=== PATIENT | female | born 1960 | race Caucasian/White ===

== ENCOUNTER → 2019-07-03 16:23 | Outpatient (CLI) | payer BC, SELFPAY ==
--- NOTE | 2019-07-03 16:28 | RAD_ITS ---
STUDY: X-RAY CHEST REASON FOR EXAM: Female, 58 years old. Asthma exacerbation TECHNIQUE: Frontal and lateral views of the chest. COMPARISON: 07/05/2012. FINDINGS: Stable surgical clips are seen related to the left chest wall. The lungs are clear and expanded. There is no demonstrated pleural abnormality. Normal size heart. Normal mediastinum and mario. Normal visualized pulmonary arteries. Normal visualized aortic arch and descending thoracic aorta. Normal visualized thoracic spine. Normal visualized ribs, clavicles, and shoulders. There is no demonstrated abnormality of the visualized soft tissue structures of the upper abdomen. RAD/Chest PA and Lateral IMPRESSION: No definite acute or significant abnormality seen. Electronically Signed: Alexandre Vivar MD at 16:22 EST , Service support ,
== END ==
PROVIDERS: PCP Family Medicine; Referring Provider Family Medicine; Visit Provider Family Medicine
DX: J45.901 Unspecified asthma with (acute) exacerbation (principal)
CPT/HCPCS: 71046

== ENCOUNTER → 2020-01-18 12:28 | Outpatient (CLI) | payer BC, SELFPAY | PROVIDERS: Visit Provider Family Medicine | DX: Z03.818 Encounter for observation for suspected exposure to other biological agents ruled out (principal); Z11.59 Encounter for screening for other viral diseases | CPT/HCPCS: 87635; U0003 ==

== ENCOUNTER → 2020-02-01 10:44 | Outpatient (CLI) | payer BC, SELFPAY | PROVIDERS: Referring Provider Family Medicine; Visit Provider Family Medicine | DX: Z03.818 Encounter for observation for suspected exposure to other biological agents ruled out (principal); Z11.59 Encounter for screening for other viral diseases | CPT/HCPCS: 87635; U0003 ==

== ENCOUNTER → 2020-02-15 12:50 | Outpatient (CLI) | payer BC, SELFPAY | PROVIDERS: Referring Provider Family Medicine; Visit Provider Family Medicine | DX: Z03.818 Encounter for observation for suspected exposure to other biological agents ruled out (principal); Z11.59 Encounter for screening for other viral diseases | CPT/HCPCS: 87635; U0003 ==

== ENCOUNTER → 2020-02-29 09:49 | Outpatient (CLI) | payer BC, SELFPAY | PROVIDERS: Referring Provider Family Medicine; Visit Provider Family Medicine | DX: Z03.818 Encounter for observation for suspected exposure to other biological agents ruled out (principal); Z11.59 Encounter for screening for other viral diseases | CPT/HCPCS: 87635; U0003 ==

== ENCOUNTER → 2020-03-14 11:51 | Outpatient (CLI) | payer BC, SELFPAY | PROVIDERS: Referring Provider Family Medicine; Visit Provider Family Medicine | DX: Z03.818 Encounter for observation for suspected exposure to other biological agents ruled out (principal); Z11.59 Encounter for screening for other viral diseases | CPT/HCPCS: 87635; U0003 ==

== ENCOUNTER → 2020-05-01 15:23 | Outpatient (CLI) | payer BC, SELFPAY ==
[2020-05-01 18:19] LABS: Anion Gap 6 (5-15); BUN 10 mg/dL (7-18); BUN/Creat Ratio 13.1 RATIO (10-20); Calcium,Total 8.9 mg/dL (8.5-10.1); Chloride 104 mmol/L (98-107); Creatinine, Serum 0.76 mg/dL (0.55-1.02); EST Glomerular Filtration Rate 82 mL/min (>60); Est Glom Filt Rate - Afr Amer 100 mL/min (>60); Glucose 234 mg/dL (74-106); Sodium Level 138 mmol/L (136-145)
== END ==
PROVIDERS: Visit Provider Family Medicine
DX: I10 Essential (primary) hypertension (principal)
CPT/HCPCS: 36415; 80048

== ENCOUNTER → 2020-12-12 14:05 | Outpatient (CLI) | payer BC, SELFPAY | PROVIDERS: Nurse Practitioner Family; Visit Provider Family Medicine | DX: E03.9 Hypothyroidism, unspecified (principal) | CPT/HCPCS: 36415; 84443 ==

== ENCOUNTER → 2021-04-14 18:24 | Outpatient (CLI) | payer OTHER, SELFPAY | PROVIDERS: PCP Family Medicine; Referring Provider Family Medicine; Visit Provider Family Medicine | DX: U07.1 COVID-19 (principal) | CPT/HCPCS: 87635; U0005; U0003 ==

== ENCOUNTER 2021-04-15 17:25 | Outpatient (CLI) | payer OTHER, SELFPAY ==
[2021-04-15 18:01] VITALS: BP 134/75; PULSE 79; RESP 16; TEMP 37.2; O2SAT 97
[2021-04-15] MEDS: 0.9% Saline Lock 10 ML Syringe IV (18:03)
[2021-04-15 18:30] VITALS: BP 123/52; PULSE 71; RESP 16; TEMP 36.9; O2SAT 98
[2021-04-15 19:30] VITALS: BP 130/59; PULSE 73; RESP 16; TEMP 37.2
== END 2021-04-15 19:30 | disposition home or self-care (01) ==
LOC: MS3OUT 17:26 → MS3 17:26
PROVIDERS: PCP Family Medicine; Referring Provider Nurse Practitioner Adult Health; Visit Provider Nurse Practitioner Adult Health
DX: Z23 Encounter for immunization (principal); U07.1 COVID-19
CPT/HCPCS: J7050; M0243; A4216; Q0244

== ENCOUNTER 2021-04-17 00:22 | Observation (INO) | payer OTHER, SELFPAY ==
[2021-04-17] VITALS (38 sets, daily range): BP systolic 84–137; BP diastolic 52–101; PULSE 59–153; RESP 13–23; TEMP 36.6–37.2; O2SAT 90–98; BMI 21.1
--- NOTE | 2021-04-17 00:49 | EKG12_ITS ---
Test Reason : PALPS Blood Pressure : / mmHG Vent. Rate : 156 BPM Atrial Rate : 312 BPM P-R Int : 000 ms QRS Dur : 084 ms QT Int : 308 ms P-R-T Axes : 000 060 -89 degrees QTc Int : [address] & T wave abnormality, consider inferior ischemia ST & T wave abnormality, consider anterolateral ischemia Abnormal ECG Confirmed by MONICA CORNELIUS, LIZZETTE ([id number]), sound editor SRAVAN CASEY ([id number]) on 04/18/2021 10:43:45 AM Referred By: LUANNE Confirmed By:LIZZETTE ANDERSON MD
--- NOTE | 2021-04-17 00:49 | RAD_ITS ---
STUDY: X-RAY CHEST REASON FOR EXAM: Female, 60 years old. Dyspnea TECHNIQUE: Single AP portable view of the chest. COMPARISON: 07/03/2019 FINDINGS: Nodular opacities seen throughout both lungs with a basilar predominance. No pleural effusion. No pneumothorax. Normal size heart. Normal mediastinum and mario. Normal visualized pulmonary arteries. Normal visualized aortic arch and descending thoracic aorta. Mild S-shaped scoliosis of the thoracolumbar spine. Normal visualized ribs, clavicles, and shoulders. There is no demonstrated abnormality of the visualized soft tissue structures of the upper abdomen. RAD/Chest 1 View (Portable) IMPRESSION: Diffuse bilateral pulmonary nodules, new from prior imaging Electronically Signed: Eric Arana MD at 1:23 EST Tel , Service support ,
[2021-04-17] MEDS: dilTIAZem 25 MG/5 ML Vial 20 MG IV BOLUS ×3 (00:54→03:42)
[2021-04-17] MEDS: 0.9% Normal Saline 1,000 ML 999 ML IV (00:54)
[2021-04-17 01:01] LABS: Absolute Lymphocyte Count 0.93 X10^3/uL (0.83-4.51); Basophil# 0.01 X10^3/uL; Basophil% 0.3 % (0-1); Hematocrit 40.8 % (37-47); Hemoglobin 13.9 g/dL (12.0-15.0); Lymphocyte # 0.93 X10^3/ul (0.83-4.51); Lymphocyte % 28.4 % (19-41); Mean Corp Hgb Conc 34.1 g/dL (32-36); Mean Corpuscular Hgb 31.3 pg (27.0-32.0); Mean Corpuscular Volume 91.9 fL (81-99); Mean Platelet Vol. 11.1 fl (6.2-12.0); Monocyte# 0.28 X10^3/uL; Monocyte% 8.6 % (0-10); NRBC Flagged by Analyzer 0 % (0-5); Neutrophil # 2.03 X10^3/uL (2.7-7.7); Neutrophil % 62.1 % (47-70); Platelet Count 135 K/mm3 (150-450); RBC Distribution Width CV 11.7 % (11.6-14.6); RBC Distribution Width SD 39.7 fl (35.1-43.9); Red Blood Count 4.44 M/mm3 (4.2-5.4); White Blood Count 3.3 K/mm3 (4.4-11.0)
[2021-04-17 01:07] LABS: Prothrombin Time (Protime)PT. 12.7 SECONDS (11.7-14.9)
[2021-04-17 01:08] LABS: Partial Thromboplast Time 38.4 Seconds (24.1-36.2)
[2021-04-17 01:25] LABS: Anion Gap 5 (5-15); BUN 8 mg/dL (7-18); BUN/Creat Ratio 11.3 RATIO (10-20); Calcium,Total 8.6 mg/dL (8.5-10.1); Chloride 99 mmol/L (98-107); Creatinine, Serum 0.71 mg/dL (0.55-1.02); EST Glomerular Filtration Rate 89 mL/min (>60); Est Glom Filt Rate - Afr Amer 108 mL/min (>60); Estimated Creatinine Clearance 74.87 ml/min; Glucose 159 mg/dL (74-106); Potassium 3.5 mmol/L (3.5-5.1); Sodium Level 131 mmol/L (136-145); Thyroid Stim Hormone (TSH) 4.13 uIU/mL (0.358-3.74); Troponin-I HS 60 pg/mL (3.0-54.0)
[2021-04-17] MEDS: Enoxaparin 60 MG/0.6 ML Syringe SC ×2 (02:26→09:15)
[2021-04-17 03:02] LABS: Troponin-I HS 107 pg/mL (3.0-54.0)
--- NOTE | 2021-04-17 03:47 | EDS_ITS ---
HPI History of Present Illness Chief Complaint: Palpitations Narrative Narrative: Patient is a 60-year-old female who states she is approximately 5 days into a Covid diagnosis. She states that today she took 15 mg of ivermectin and then a few hours later felt like her heart was racing and skipping beats. She denies any stimulant use or illicit drug use. She does state that she has a history of a ventricular tachycardia that was diagnosed years ago and that she takes metoprolol for. She denies any chest pain or shortness of breath but states that with the persistent palpitations presents for evaluation. [facility] Medical History (Updated 04/17/21 @ 03:[address] David Miranda, DO) HX: breast cancer Hypothyroid Tachycardia Home Medications albuterol sulfate [ProAir HFA] 1 - 2 puff INHALATION Q4H PRN 04/15/21 [History Last Taken Unknown] metformin 500 mg PO DAILY 04/15/21 [History Last Taken Unknown] metoprolol succinate 25 mg PO BID 04/15/21 [History Last Taken Unknown] thyroid (pork) [[place] Thyroid] 60 mg PO DAILY 04/15/21 [History Last Taken Unknown] Allergy/AdvReac Type Severity Reaction Status Date / Time cyclobenzaprine Allergy Severe dyspnea Verified 04/17/21 00:26 Sulfa (Sulfonamide Allergy Severe hives Verified 04/17/21 00:26 Antibiotics) Social History Smoking Status: Former smoker ROS [facility] ED Constitutional Constitutional ED: Denies chills or fever(s) ENT ENT ED: Reports rhinorrhea and sore throat Cardiovascular Cardiovascular: Reports palpitations and racing heartbeat; Denies chest pain Respiratory/Chest Respiratory/Chest: Reports cough; Denies dyspnea Gastrointestinal Gastrointestinal: Denies abdominal pain, diarrhea, nausea or vomiting Genitourinary Genitourinary ED: Denies dysuria Musculoskeletal Musculoskeletal: Denies myalgias Integumentary Denies rash Neurologic Neurologic: Denies headache(s) Hematologic/Lymphatic Hematologic/Lymphatic: Denies easy bleeding or easy bruising EXAM Physical Exam Const Vital Signs: 04/17/21 00:23 04/17/21 00:26 04/17/21 00:59 Temperature 98.5 F 98.5 F Temperature Source Oral Oral Pulse Rate 147 H 147 H 85 Respiratory Rate 22 H 22 H Respiratory Effort Short of Breath Respiratory Pattern Tachypnea Blood Pressure 137/101 H 137/101 H Blood Pressure Mean 113 113 Pulse Ox 97 97 Oxygen Delivery Method Room Air Room Air 04/17/21 01:46 04/17/21 01:58 04/17/21 02:02 Temperature Temperature Source Pulse Rate 148 H 103 H 97 Respiratory Rate 17 18 17 Respiratory Effort Respiratory Pattern Blood Pressure 124/83 H 124/83 H 106/65 Blood Pressure Mean 96 96 78 Pulse Ox 97 96 94 Oxygen Delivery Method Room Air Room Air 04/17/21 02:18 04/17/21 02:49 04/17/21 03:35 Temperature Temperature Source Pulse Rate 130 H 144 H 153 H Respiratory Rate 16 16 13 Respiratory Effort Respiratory Pattern Blood Pressure 116/83 H 133/87 H 116/89 H Blood Pressure Mean 94 102 98 Pulse Ox 94 95 94 Oxygen Delivery Method Room Air Positive well nourished and well developed General Appearance ED: well developed HEENT Reports moist mucous membranes Eyes PERRL and EOMs intact bilaterally Neck supple Resp normal respiratory effort and clear to auscultation bilaterally Cardio Rate: other Other Details: Irregularly irregular rhythm with tachycardic rate GI normal to inspection, nondistended, normoactive bowel sounds, non-tender, non-distended and no masses GI Narrative: No voluntary guarding or rigidity no pulsatile mass Auscultation: normoactive bowel sounds Palpation: soft Extremity normal to inspection Extremity Narrative: No asymmetric edema no pitting edema negative Homans' sign bilaterally Neuro oriented x3 and CN's II-XII intact bilaterally Sensorium / Orientation: alert Psych mental status grossly normal Skin no rashes or lesions noted MDM MDM MDM Narrative Medical decision making narrative: Patient presented to the ER with an irregularly irregular rhythm consistent with atrial fibrillation and rapid ventricular response at approximately 160 bpm. She states she can feel her heart racing and that this began approximately 2 hours prior to arrival. She denies any chest pain or shortness of breath associated with this. She denies any previous history of atrial fibrillation or blood thinner use. She also denies any illicit drug use or stimulant use. With her new onset A. fib basic blood work was obtained which showed a low white blood cell count consistent with her recent Covid diagnosis and otherwise the only abnormality was an elevated troponin which is most likely from demand ischemia. The patient was started on Cardizem bolus as well as drip secondary to her persistent tachycardia. Secondary to the need for continued IV rate control she will be kept in the hospital for further care. Lab Data Attestation: I reviewed the patient's lab results. Labs: Laboratory Results - last 24 hr 04/17/21 04/17/21 04/17/21 00:32 00:32 00:32 WBC 3.3 L RBC 4.44 Hgb 13.9 Hct 40.8 MCV 91.9 MCH 31.3 MCHC 34.1 RDW Std Deviation 39.7 RDW Coeff of Debbie 11.7 Plt Count 135 L MPV 11.1 Immature Gran % (Auto) 0.600 Neut % (Auto) 62.1 Lymph % (Auto) 28.4 [place] % (Auto) 8.6 Eos % (Auto) 0.0 Baso % (Auto) 0.3 Absolute Neuts (auto) 2.0 Absolute Lymphs (auto) 0.93 Nucleated RBC % 0 PT 12.7 INR 1.0 APTT 38.4 H Sodium 131 L Potassium 3.5 Chloride 99 Carbon Dioxide 27.0 Anion Gap 5 BUN 8 Creatinine 0.71 Estim Creat Clear Calc 74.87 Est GFR (MDRD) Af Amer 108 Est GFR (MDRD) Non-Af 89 BUN/Creatinine Ratio 11.3 Glucose 159 H Calcium 8.6 Magnesium 2.0 Troponin I High Sens 60 H TSH 4.13 H 04/17/21 02:38 WBC RBC Hgb Hct MCV MCH MCHC RDW Std Deviation RDW Coeff of Debbie Plt Count MPV Immature Gran % (Auto) Neut % (Auto) Lymph % (Auto) Johnson % (Auto) Eos % (Auto) Baso % (Auto) Absolute Neuts (auto) Absolute Lymphs (auto) Nucleated RBC % PT INR APTT Sodium Potassium Chloride Carbon Dioxide Anion Gap BUN Creatinine Estim Creat Clear Calc Est GFR (MDRD) Af Amer Est GFR (MDRD) Non-Af BUN/Creatinine Ratio Glucose Calcium Magnesium Troponin I High Sens 107 H TSH Radiography Diagnostic Testing: Clinical Impression(s) from Imaging Studies Chest X-Ray 04/17/21 00:49 IMPRESSION: Diffuse bilateral pulmonary nodules, new from prior imaging Electronically Signed: Eric Arana MD at 1:23 EST Tel , Service support , Critical Care Time Critical Care Time: Yes Critical care time (excluding procedures): - (Please note critical care time of 31 minutes) Discharge Plan Dx/Rx/DC Orders Clinical Impression: COVID-19, New onset atrial fibrillation Disposition Disposition: Acute Care Hospital [facility]
--- NOTE | 2021-04-17 03:48 | HP.PCM.HOS_ITS ---
HPI - General General Date of Admission: 04/17/21 Date of Service: 04/17/21 Chief Complaint: Palpitations HPI Narrative OLAMIDE REILLY, is a 60 F who presents to the emergency room at [facility] with a chief complaint of palpitations which started approximately midnight to 1 AM today, patient does not describe chest pain. Patient was diagnosed as having Covid 19 infection 2 days ago, she states that her symptoms actually started last (04/10/2021). Patient is not short of breath, she is not hypoxic in the emergency room. Lab work drawn in the emergency room included a CBC which showed a WBC of 3.3, platelet count 135,000, glucose was 159, sodium was 131, troponin was 107, and TSH was 4.13. EKG was obtained which showed the patient to be in atrial fibrillation with a rate of approximately 130-140, there were ST-T wave depressions in leads V4 through V6. Patient was given 2 boluses of Cardizem 20 mg with some slowing of her rate and she was placed on a Cardizem drip. Chest x-ray showed diffuse bilateral pulmonary nodules new from prior imaging. Patient will be admitted to PCU for new onset atrial fibrillation with rapid ventricular response, I have ordered another 20 mg of Cardizem as the patient's pulse rate has jumped up into the 130s again. 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 [facility] Medical History (Updated 04/17/21 @ 03:[address] David Miranda, DO) HX: breast cancer Hypothyroid Tachycardia Home Medications albuterol sulfate [ProAir HFA] 1 - 2 puff INHALATION Q4H PRN 04/15/21 [History Last Taken Unknown] metformin 500 mg PO DAILY 04/15/21 [History Last Taken Unknown] metoprolol succinate 25 mg PO BID 04/15/21 [History Last Taken Unknown] thyroid (pork) [[place] Thyroid] 60 mg PO DAILY 04/15/21 [History Last Taken Unknown] Allergy/AdvReac Type Severity Reaction Status Date / Time cyclobenzaprine Allergy Severe dyspnea Verified 04/17/21 00:26 Sulfa (Sulfonamide Allergy Severe hives Verified 04/17/21 00:26 Antibiotics) Social History Smoking Status: Former smoker ROS Constitutional Constitutional: Reports fatigue; Denies anorexia, change in weight, fever(s), night sweats or weakness Eyes Eyes: Denies blurry vision, change in vision, discharge from eye(s) or eye pain Cardiovascular Cardiovascular: Reports palpitations and rapid heart rate; Denies chest pain, claudication or edema Respiratory/Chest Respiratory/Chest: Denies cough, hemoptysis, shortness of breath at rest or shortness of breath with exertion Gastrointestinal Gastrointestinal: Denies abdominal pain, constipation, diarrhea, hematemesis, hematochezia, melena, nausea or vomiting Genitourinary Genitourinary: Denies dysuria, hematuria, urinary frequency, urinary hesitancy, urinary incontinence or urinary urgency Musculoskeletal Musculoskeletal: Denies back pain, joint pain, joint stiffness, joint swelling, myalgias or neck pain Neurologic Neurologic: Denies abnormal gait, abnormal speech, dizziness, focal weakness, headache(s), loss of vision, numbness, other visual disturbances, paresthesias, syncope or tingling Psychiatric Psychiatric: Denies anxiety, cognitive impairment, depression, irritability, mood swings or suicidal ideation Endocrine Endocrinology: Denies change in body appearance, cold intolerance, excessive sweating, heat intolerance, polydipsia or polyuria Hematologic/Lymphatic Hematologic/Lymphatic: Denies none, anemia, easy bleeding, easy bruising or lymphadenopathy Allergic/Immunologic Allergic/Immunologic: Denies rhinitis, urticaria, eczemia or asthma Vital Signs Vital Signs Vital Signs: 04/17/21 00:23 04/17/21 00:26 04/17/21 00:59 Temperature 98.5 F 98.5 F Temperature Source Oral Oral Pulse Rate 147 H 147 H 85 Respiratory Rate 22 H 22 H Respiratory Effort Short of Breath Respiratory Pattern Tachypnea Blood Pressure 137/101 H 137/101 H Blood Pressure Mean 113 113 Pulse Ox 97 97 Oxygen Delivery Method Room Air Room Air 04/17/21 01:46 04/17/21 01:58 04/17/21 02:02 Temperature Temperature Source Pulse Rate 148 H 103 H 97 Respiratory Rate 17 18 17 Respiratory Effort Respiratory Pattern Blood Pressure 124/83 H 124/83 H 106/65 Blood Pressure Mean 96 96 78 Pulse Ox 97 96 94 Oxygen Delivery Method Room Air Room Air 04/17/21 02:18 04/17/21 02:49 04/17/21 03:35 Temperature Temperature Source Pulse Rate 130 H 144 H 153 H Respiratory Rate 16 16 13 Respiratory Effort Respiratory Pattern Blood Pressure 116/83 H 133/87 H 116/89 H Blood Pressure Mean 94 102 98 Pulse Ox 94 95 94 Oxygen Delivery Method Room Air Weight Weight: 57.6 kg Body Mass Index (BMI) 21.1 Physical Exam Const alert, oriented x3, no apparent distress and healthy appearing General Appearance: cooperative, well kempt and well developed Orientation / Consciousness: awake, oriented to person, oriented to place and oriented to time HEENT normocephalic, head/scalp atraumatic, hearing grossly normal bilaterally and moist oral mucous membranes Eyes PERRL, EOMs intact bilaterally and conjunctivae normal Neck nuchal rigidity, supple, no JVD, thyroid normal and no carotid bruits General: trachea midline Resp normal respiratory effort, no retractions, no use of accessory muscles and clear to auscultation bilaterally Auscultation: Negative for rales, rhonchi or wheezes Cardio S1 normal heart sound, S2 normal heart sound, no murmurs, no rub and no gallops Cardio Narrative: Heart rate and rhythm was irregular, patient was tachycardic GI normal to inspection, nondistended, normoactive bowel sounds, soft to palpation, non-tender and non-distended Extremity normal to inspection and no clubbing, cyanosis or edema Skin no rashes or lesions noted, no wounds and skin turgor normal General Skin Exam: no breakdown Neuro oriented x3, CN's II-XII intact bilaterally, no focal motor deficits and no sensory deficits noted Sensorium / Orientation: awake and alert Speech: speech normal Psych thought process normal and affect normal Results Lab / Micro Data Result Diagrams: 04/17/21 00:32 04/17/21 00:32 Labs: Laboratory Results - last 24 hr 04/17/21 00:32: WBC 3.3 L, RBC 4.44, Hgb 13.9, Hct 40.8, MCV 91.9, MCH 31.3, MCHC 34.1, RDW Std Deviation 39.7, RDW Coeff of Debbie 11.7, Plt Count 135 L, MPV 11.1, Immature Gran % (Auto) 0.600, Neut % (Auto) 62.1, Lymph % (Auto) 28.4, [place] % (Auto) 8.6, Eos % (Auto) 0.0, Baso % (Auto) 0.3, Absolute Neuts (auto) 2.0, Absolute Lymphs (auto) 0.93, Nucleated RBC % 0 04/17/21 00:32: PT 12.7, INR 1.0, APTT 38.4 H 04/17/21 00:32: Sodium 131 L, Potassium 3.5, Chloride 99, Carbon Dioxide 27.0, Anion Gap 5, BUN 8, Creatinine 0.71, Estim Creat Clear Calc 74.87, Est GFR (MDRD) Af Amer 108, Est GFR (MDRD) Non-Af 89, BUN/Creatinine Ratio 11.3, Glucose 159 H, Calcium 8.6, Magnesium 2.0, Troponin I High Sens 60 H, TSH 4.13 H 04/17/21 02:38: Troponin I High Sens 107 H Radiology Impression Chest X-Ray 04/17/21 00:49 IMPRESSION: Diffuse bilateral pulmonary nodules, new from prior imaging Electronically Signed: Eric Arana MD at 1:23 EST Tel , Service support , Assessment & Plan Assessment/Plan (1) New onset atrial fibrillation: PLAN: 1. New onset atrial fibrillation with rapid ventricular response- patient will be placed into stepdown on PCU, she is currently on a Cardizem drip, her blood pressures are stable at this time. Patient will get a limited echocardiogram due to her COVID-19 status, she may need additional rate reduction medications administered. #2 elevated troponin-possible [id number] will be monitored, she may need cardiology consultation #3 COVID-19 pneumonia-patient is not hypoxic, she is not eligible for dexamethasone or remdesivir due to this. Patient was taking ivermectin from a doctor that she contacted by phone. #4 history of tachycardia-type unknown, patient was taking metoprolol as an outpatient. #5 hypothyroidism #6 history of asthma #7 history of breast cancer Charges/Coding Visit Charges Inpatient E&M: 51150 Init Hosp L3
--- NOTE | 2021-04-17 04:06 | ECHOD_ITS ---
Reason For Study: AFIB Procedure This was a 2D Doppler, Color Flow transthoracic echocardiogram. The exam was abbreviated due to the COVID 19 protocol. Exam performed portable in patient room. Left Ventricle The estimated ejection fraction is 60 %. No evidence for diastolic dysfunction. No regional wall motion abnormalities noted. Right Ventricle Normal RV size. Normal systolic function. Atria Normal left atrium. Normal right atrium. No doppler evidence for ASD. Mitral Valve There is no mitral valve stenosis. No mitral valve insufficiency. Tricuspid Valve There is no tricuspid stenosis. Trivial tricuspid valve insufficiency. Pulmonary artery systolic pressure is 25 mmHg. Aortic Valve Trisinus/trileaflet aortic valve. There is no aortic stenosis. No aortic valve insufficiency. Pulmonic Valve There is no pulmonic valvular stenosis. No pulmonic valve insufficiency. Great Vessels Normal aortic root. Pericardium/Pleural No pericardial effusion. MMode/2D Measurements & Calculations LVIDd: 4.3 cm IVSd: 0.74 cm Ao root diam: 3.1 cm LVIDs: 3.0 cm LVPWd: 0.77 cm RVDd: 3.0 cm FS: 30.8 % LAV(MOD-bp): 35.5 ml LA A4 area: 14.6 cm2 LA dimension(2D): 3.3 cm LAV(MOD-bp) Indexed: 22.3 ml/m2 LAV(MOD-sp2): 39.0 ml LAV(MOD-sp4): 33.4 ml RA A4 area: 12.9 cm2 Doppler Measurements & Calculations Ao V2 max: 108.9 cm/sec LV V1 max: 89.6 cm/sec TR max jose l: 230.2 cm/sec Ao max P.7 mmHg LV V1 max P.2 mmHg TR max P.2 mmHg ECHO/Echo Complete Interpretation Summary The estimated ejection fraction is 60 %. No evidence for diastolic dysfunction. Ordering Physician: Marquise Andrea Referring Physician: PANDA FRANCISCO Performed By: Loyda Chatterjee, ELENITA, RVT
--- NOTE | 2021-04-17 04:24 | EKG12_ITS ---
Test Reason : AM EKG Blood Pressure : / mmHG Vent. Rate : 070 BPM Atrial Rate : 083 BPM P-R Int : 000 ms QRS Dur : 082 ms QT Int : 396 ms P-R-T Axes : 000 065 -69 degrees QTc Int : 427 ms Atrial fibrillation Nonspecific ST and T wave abnormality Abnormal ECG When compared with ECG of 17-APR-2021 00:33, MANUAL COMPARISON REQUIRED, DATA IS UNCONFIRMED Confirmed by MAXIMILIANO CORNELIUS, TALISHA ([id number]), video effects editor SRAVAN CASEY ([id number]) on 04/18/2021 12:49:44 PM Referred By: DR WEEMS Confirmed By:BINH VIERA MD
--- NOTE | 2021-04-17 04:26 | PCS.PANDOC ---
PANDEMIC DOCUMENTATION INITIATED: Date: 12/16/2020 Time: 190
[2021-04-17] MEDS: Metoprolol Tartrate 50 MG Tablet PO ×2 (04:41→09:16)
[2021-04-17] MEDS: Ondansetron 4 MG/2 ML Vial IV (05:12)
[2021-04-17] MEDS: 0.9% Saline Lock 10 ML Syringe IV (05:12)
[2021-04-17] MEDS: Acetaminophen 325 MG Tablet 650 MG PO (05:12)
--- NOTE | 2021-04-17 07:51 | PCM.HOSP.N ---
Hospitalist Note Patient is a 60-year-old lady unvaccinated against COVID-19 who tested positive for Covid on 04/14/2021 presented to the emergency department with palpitations. Patient was found to be in A. fib with RVR started on Cardizem drip admitted to a monitored bed for further management GENERAL: cooperative HEENT: Atraumatic; EYES; Anicteric, Normal Conjunctiva NECK; supple, normal thyroid, RESPIRATORY: Diminished to auscultation CARDIOVASCULAR: Irregularly irregular tachycardic GI: soft, normoactive bowel sounds, : No Renal angle tenderness; EXTREMITIES: No edema, no clubbing, MUSCULOSKELETAL: no muscle waisting NEURO: Awake; no lateralizing signs. SKIN: No Rash PSYCH; Flat affect 1. New onset A. fib with RVR ?Patient started on Cardizem drip titrated to keep saturation greater than 90. Patient was also started on systemic anticoagulation with Lovenox which has since been transitioned to Eliquis. Plan is for patient to complete work-up with an outpatient echo when she is out of current time 2. Essential hypertension ?Patient is on metoprolol did continue 3. Diabetes mellitus type II -patient's oral hypoglycemics held. Placed on long acting insulin, Accu-Cheks a.c. and at bedtime and covered with sliding scale insulin 4. Hypothyroidism ?Patient is on [place] Thyroid did continue 5. Mild intermittent asthma -Patient is on aerosol treatments as needed Advance planning; did discuss with the patient and family regarding advanced directives as well as CODE STATUS. Did explain the various scenarios involved ( FULL CODE, DNR CCA, DNR CCA with no intubation, and DNR CC and what each meant) patient elected to full code with CPR and intubation if needed. Order was placed. Time spent on discussion 18 minutes. Total time spent evaluating patient and subsequent adjustment of medication therapy and discussion with nursing staff; 35 minutes [facility] [employer] Hospitalists' Procedures Procedures: 74369 Prolonged InPt Service; first hour and [id number] Advncd Care Plan 30 Min
[2021-04-17 08:00] LABS: Troponin-I HS 132 pg/mL (3.0-54.0)
[2021-04-17] MEDS: metFORMIN HCl 500 MG Tablet PO (08:13)
[2021-04-17] MEDS: Thyroid 60 MG Tablet PO (09:15)
--- NOTE | 2021-04-17 12:04 | EKG12_ITS ---
Test Reason : CONNVERT TO NSR Blood Pressure : / mmHG Vent. Rate : 061 BPM Atrial Rate : 061 BPM P-R Int : 150 ms QRS Dur : 074 ms QT Int : 440 ms P-R-T Axes : 048 058 -61 degrees QTc Int : 442 ms Normal sinus rhythm T wave abnormality, consider inferior ischemia Abnormal ECG When compared with ECG of 17-APR-2021 06:06, MANUAL COMPARISON REQUIRED, DATA IS UNCONFIRMED Confirmed by MAXIMILIANO CORNELIUS, TALISHA ([id number]), film or videotape editor SRAVAN CASEY ([id number]) on 04/18/2021 12:49:22 PM Referred By: HERIBERTO Confirmed By:BINH VIERA MD
[2021-04-17] MEDS: APIXABAN 5 MG TABLET PO (14:09)
[2021-04-17] MEDS: dilTIAZem CD 120 MG Capsule PO (14:09)
--- NOTE | 2021-04-17 16:03 | PCM.DC.SUM ---
Providers Date of Admission: 04/17/21 Primary Care Physician: Dr. Panda Muro MD Reason For Visit: NEW ONSET A-FIB WITH RVR Diagnosis Discharge Diagnosis (1) New onset atrial fibrillation: Status: Acute Code(s): I48.91 - Unspecified atrial fibrillation Medications at Discharge Home Medications albuterol sulfate [ProAir HFA] 1 - 2 puff INHALATION Q4H PRN 04/15/21 metformin 500 mg PO DAILY 04/15/21 thyroid (pork) [[place] Thyroid] 60 mg PO DAILY 04/15/21 apixaban [Eliquis] 5 mg PO BID #60 tab 04/17/21 diltiazem HCl 120 mg PO DAILY #30 cap 04/17/21 metoprolol succinate 50 mg PO BID #0 tab 04/17/21 Hospital Course Procedures 2-D Echocardiogram Summary of Care Provided Minutes Spent on Discharge: 45 Hospital Course: Patient is a 60-year-old lady unvaccinated against COVID-19 who tested positive for Covid on 04/14/2021 presented to the emergency department with palpitations. Patient was found to be in A. fib with RVR started on Cardizem drip admitted to a monitored bed for further management 1. New onset A. fib with RVR ?Patient started on Cardizem drip titrated to keep saturation greater than 90. Patient was also started on systemic anticoagulation with Lovenox which has since been transitioned to Eliquis. 2D echo obtained did not show any structural heart disease. EF was estimated to be 60% 2. COVID-19 infection ?Patient not requiring oxygen. She was therefore not placed on remdesivir nor Decadron. She was instructed to current time for total of 10 days from the onset of her symptoms 3. Diabetes mellitus type II -patient's oral hypoglycemics held. Placed on long acting insulin, Accu-Cheks a.c. and at bedtime and covered with sliding scale insulin 4. Hypothyroidism ?Patient is on [place] Thyroid did continue 5. Mild intermittent asthma -Patient is on aerosol treatments as needed 6. Essential hypertension ?Patient is on metoprolol did continue Physical Exam Narrative GENERAL: cooperative HEENT: Atraumatic; EYES; Anicteric, Normal Conjunctiva NECK; supple, normal thyroid, RESPIRATORY: Diminished to auscultation CARDIOVASCULAR: Irregularly irregular tachycardic GI: soft, normoactive bowel sounds, : No Renal angle tenderness; EXTREMITIES: No edema, no clubbing, MUSCULOSKELETAL: no muscle waisting NEURO: Awake; no lateralizing signs. SKIN: No Rash PSYCH; Flat affect Medical Records Data Medical Nutrition Assessment Dietitian: Malnutrition Criteria Met Start: 04/17/21 13:40 Freq: Status: Active Protocol: Document 04/17/21 13:40 [facility] (Rec: 04/17/21 13:41 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 Weight / BMI Weight Weight: 54.7 kg Body Mass Index (BMI) 20.0 ABG / Lab / Microbiology Data Result Diagrams: 04/17/21 00:32 04/17/21 00:32 Laboratory: Laboratory Results - last 24 hr 04/17/21 00:32: WBC 3.3 L, RBC 4.44, Hgb 13.9, Hct 40.8, MCV 91.9, MCH 31.3, MCHC 34.1, RDW Std Deviation 39.7, RDW Coeff of Debbie 11.7, Plt Count 135 L, MPV 11.1, Immature Gran % (Auto) 0.600, Neut % (Auto) 62.1, Lymph % (Auto) 28.4, [place] % (Auto) 8.6, Eos % (Auto) 0.0, Baso % (Auto) 0.3, Absolute Neuts (auto) 2.0, Absolute Lymphs (auto) 0.93, Nucleated RBC % 0 04/17/21 00:32: PT 12.7, INR 1.0, APTT 38.4 H 04/17/21 00:32: Sodium 131 L, Potassium 3.5, Chloride 99, Carbon Dioxide 27.0, Anion Gap 5, BUN 8, Creatinine 0.71, Estim Creat Clear Calc 74.87, Est GFR (MDRD) Af Amer 108, Est GFR (MDRD) Non-Af 89, BUN/Creatinine Ratio 11.3, Glucose 159 H, Calcium 8.6, Magnesium 2.0, Troponin I High Sens 60 H, TSH 4.13 H 04/17/21 02:38: Troponin I High Sens 107 H 04/17/21 06:42: Troponin I High Sens 132 H* Radiography Diagnostic Testing: Radiology Impression Chest X-Ray 04/17/21 00:49 IMPRESSION: Diffuse bilateral pulmonary nodules, new from prior imaging Electronically Signed: Eric Arana MD at 1:23 EST Tel , Service support , Echocardiogram 04/17/21 04:06 Interpretation Summary The estimated ejection fraction is 60 %. No evidence for diastolic dysfunction. Ordering Physician: Marquise Andrea Referring Physician: PANDA MURO Performed By: Loyda Chatterjee, ELENITA, RVT D/C Instructions Discharge Diet: No restrictions Discharge Activity: Return to Normal Activity Call your doctor if you observe: Fever of 101 or Higher, Shortness of breath, Fainting spells and Chest pain Meaningful Use Info Meaningful Use Diagnoses (Choose all that apply): None applicable Discharge Plan Admission Admit Date/Time: 04/17/21 03:58 Attending Provider: Anmol Casper Primary Care Provider: Panda Muro Instructions Patient Instructions: Coronavirus Disease 2019 (COVID-19): Caring for Yourself or Others, Understanding Atrial Fibrillation Discharge Orders/Prescriptions Prescriptions: New diltiazem HCl 120 mg Capsule,Extended Release 24hr 120 mg PO DAILY Qty: 30 RF: 0 Eliquis 5 mg Tablet 5 mg PO BID Qty: 60 RF: 0 Continued metformin 500 mg Tablet 500 mg PO DAILY RF: 0 albuterol sulfate [ProAir HFA] 90 mcg/actuation HFA aerosol inhaler 1 - 2 puff INHALATION Q4H PRN (Reason: shortness of breath/wheezing) RF: 0 thyroid (pork) [[place] Thyroid] 30 mg tablet 60 mg PO DAILY RF: 0 Changed metoprolol succinate 25 mg tablet extended release 24 hr 50 mg PO BID Qty: 0 RF: 0 Referrals / Follow Up: Panda Muro MD [Primary Care Provider] - Within 2 Weeks Disposition Disposition (needs filled in before D/C Order can be placed): Home, Self Care Charges/Coding Visit Charges OBSV E&M: 86975 Observation care discharge
--- NOTE | 2021-04-17 16:35 | CASEMGMT ---
Addendum entered by Fatuma Saenz 04/17/21 16:44: Home O2 testing has been completed. Pt does not qualify for O2 at this time. Original Note: ENEIDA MITCHELL NOTE: Pt being discharged home on Eliquis and diltiazem. TC to Ryan in [facility] pharmacy for dorsey check. Eliquis cost is $96.52 after insurance applied. 30-day savings card applied and will be free. Diltiazem is $1.80. TC to pt and she was made aware of above. ENIEDA MITCHELL educated pt, that if cost of refills is not affordable, to discuss more affordable options w/her PCP. She voices understanding and appreciation of info. Hayden DIAL RN, CM
--- NOTE | 2021-04-17 16:45 | CASEMGMT ---
RN CM Assessment Introduced role of RN CM to patient.? Patient is alert, oriented and able?to participate in RN CM Assessment. ?Care providers, pharmacy, and demographics verified. Admit Dx: New Onset A-fib w/RVR. IP- 12.16.21 Re-Admit: No Barriers/Issues: None PCP: Tere Muro Specialists: Used to see Cardio Preferred Pharmacy: [facility] Insurance: [employer] Rx Benefit:?Yes LNOK: Dtr Lorene Blandon, Dtr Sherry Gautam LW/HPOA: None. information provided, patient decliners completion on this admission. Informed can return as an outpatient to complete with social service liaison at a later time.Living Arrangements:?Lives alone in a gnd level apartment, 2 steps to enter ADL?s: Independent with ambulation and ADLs Transportation: Patient drives and drove self to hospital. Plans to drive at DC. DME: Elsa Manzanares HHC: Past SNF: None Goal: Home and only need is for RNCM to to monitor and assist with Medication cost- to have affordable anticoagulation and antiarrhythmic. [facility] has an HSA and cannot afford high cost medications. DC PLAN: Home, F/u new medication cost/coupon savings card. MARQUISE Rodrigues
== END 2021-04-17 18:26 | disposition home or self-care (01) ==
LOC: ED 03:48 → PCU 04:09
PROVIDERS: Admitting Provider Internal Medicine; Emergency Provider Emergency Medicine; PCP Family Medicine; Visit Provider Internal Medicine
DX: I48.91 Unspecified atrial fibrillation (principal); U07.1 COVID-19; E11.9 Type 2 diabetes mellitus without complications; E03.9 Hypothyroidism, unspecified; J45.20 Mild intermittent asthma, uncomplicated; I10 Essential (primary) hypertension; R91.1 Solitary pulmonary nodule; J12.82 Pneumonia due to coronavirus disease 2019; R77.8 Other specified abnormalities of plasma proteins; Z79.899 Other long term (current) drug therapy; Z79.84 Long term (current) use of oral hypoglycemic drugs; Z79.890 Hormone replacement therapy; Z87.891 Personal history of nicotine dependence; Z85.3 Personal history of malignant neoplasm of breast
CPT/HCPCS: 36415; 71045; 80048; 83735; 84443; 84484; 85025; 85610; 85730; 93005; 93306; 96365; 96366; 96372; 96375; 96376; 97802; 99283; J7030; A4216; J2405

== ENCOUNTER 2021-04-18 23:06 | Emergency (ER) | payer OTHER, SELFPAY ==
[2021-04-18 23:06] VITALS: BP 140/96; PULSE 108; RESP 16; TEMP 36.8; O2SAT 93
--- NOTE | 2021-04-18 23:36 | EKG12_ITS ---
Test Reason : DYSRHYTHMIA Blood Pressure : / mmHG Vent. Rate : 139 BPM Atrial Rate : 147 BPM P-R Int : 000 ms QRS Dur : 084 ms QT Int : 322 ms P-R-T Axes : 000 066 270 degrees QTc Int : [address] & T wave abnormality, consider inferior ischemia ST & T wave abnormality, consider anterolateral ischemia Abnormal ECG Confirmed by JOHN CORNELIUS, MERRILL ([id number]), industrial editor SRAVAN CASEY ([id number]) on 04/22/2021 8:38:27 AM Referred By: JOSE J Confirmed By:MERRILL LOPEZ MD
--- NOTE | 2021-04-18 23:39 | EX.ED.DYSGE1 ---
HPI History of Present Illness Chief Complaint: Palpitations Informant: patient Onset/Context/Timing Onset: Today (Approximately 45 minutes prior to arrival) Context: Sudden Onset Timing: Continuous Quality: Fluttering Location: Chest Worsened by: Nothing Relieved by: Nothing Narrative Narrative: Patient presents with palpitations that began tonight. Patient states she felt fluttering in her chest tonight. Patient states she was recently admitted for new onset atrial fibrillation 2 days ago. Patient states she was discharged yesterday. Patient states that she felt similar fluttering in her chest tonight approximately 45 minutes prior to arrival. Patient states nothing makes it better nothing makes it worse. Patient states she has been taking her medications as prescribed. Patient denies any chest pain. Patient does admit to some shortness of breath and cough. However, patient states she is positive for COVID-19. [facility] Medical History (Updated 04/19/21 @ 03:[address] Dale Hanson DO) Atrial fibrillation Diabetes HX: breast cancer Hypothyroid Tachycardia Home Medications albuterol sulfate [ProAir HFA] 1 - 2 puff INHALATION Q4H PRN 04/15/21 [History Last Taken Unknown] metformin 500 mg PO DAILY 04/15/21 [History Last Taken Unknown] thyroid (pork) [[place] Thyroid] 60 mg PO DAILY 04/15/21 [History Last Taken Unknown] apixaban [Eliquis] 5 mg PO BID #60 tab 04/17/21 [Rx Last Taken Unknown] diltiazem HCl 120 mg PO DAILY #30 cap 04/17/21 [Rx Last Taken Unknown] metoprolol succinate 50 mg PO BID #0 tab 04/17/21 [Rx Last Taken Unknown] fluticasone propion-salmeterol [Advair Diskus] 1 inh INHALATION BID 04/18/21 [History Last Taken Unknown] Allergy/AdvReac Type Severity Reaction Status Date / Time cyclobenzaprine Allergy Severe dyspnea Verified 04/17/21 00:26 Sulfa (Sulfonamide Allergy Severe hives Verified 04/17/21 00:26 Antibiotics) Surgical History Hx of lumpectomy Social History Smoking Status: Former smoker ROS ROS ED Constitutional Constitutional ED: Denies chills or fever(s) Eyes Eyes: Denies blurry vision or change in vision ENT ENT ED: Denies rhinorrhea or sore throat Cardiovascular Cardiovascular: Reports palpitations; Denies chest pain Respiratory/Chest Respiratory/Chest: Reports cough and dyspnea Gastrointestinal Gastrointestinal: Denies nausea or vomiting Genitourinary Genitourinary ED: Denies dysuria or hematuria Musculoskeletal Musculoskeletal: Denies back pain or neck pain Integumentary Denies abscess or rash Neurologic Neurologic: Denies headache(s) or weakness Allergic/Immunologic Allergic/Immunologic ED: Denies mouth swelling or urticaria EXAM Physical Exam Const Vital Signs: 04/18/21 23:06 04/18/21 23:29 04/19/21 02:24 Temperature 98.2 F Temperature Source Temporal Pulse Rate 108 H 106 H Respiratory Rate 16 16 Respiratory Effort Normal Non-Labored Respiratory Pattern Normal Blood Pressure 140/96 H 102/81 H Blood Pressure Mean 110 88 Pulse Ox 93 96 Oxygen Delivery Method Room Air Room Air Positive well nourished and well developed General Appearance ED: well developed HEENT Reports moist mucous membranes Neck supple and no JVD Resp normal respiratory effort and clear to auscultation bilaterally Cardio no murmurs Rate: tachycardic Rhythm: abnormal rhythm irregularly irregular GI normal to inspection, nondistended, normoactive bowel sounds and non-tender Palpation: soft Extremity normal to inspection General Extremety ED: Negative for edema or tenderness General Extremity: Negative for edema Neuro oriented x3, CN's II-XII intact bilaterally and no sensory deficits noted Sensorium / Orientation: alert Motor Exam: strength 5/5 throughout Psych mental status grossly normal Skin no rashes or lesions noted MDM MDM MDM Narrative Medical decision making narrative: Patient was given a bolus of Cardizem IV here. CBC was within normal limits. Comprehensive metabolic profile showed a slight hypokalemia of 3.3. PT was INR and PTT were within normal limits. High-sensitivity troponin was normal. 2-hour repeat high-sensitivity troponin was also normal. Delta was only 4. Patient was given a dose of oral Cardizem. Patient was uncomfortable with her heart rate being in the 90s to 100s. Patient was given a repeat dose of Cardizem IV. I discussed the option of electric synchronized cardioversion with the patient. She did not want this at this time. Patient's heart rate improved into the 70s. Patient felt better about going home. I discussed with the patient that since she is already anticoagulated and on rate control medications, there would be no indication for hospitalization. Patient is agreeable with the plan. Patient was instructed to follow-up with her primary care physician in 3 to 5 days. Patient was also instructed to follow-up with her secured entrance monitor. All questions were answered. Lab Data Attestation: I reviewed the patient's lab results. Labs: Laboratory Results - last 24 hr 04/18/21 04/18/21 04/18/21 23:20 23:20 23:20 WBC 4.6 RBC 4.09 L Hgb 12.9 Hct 38.5 MCV 94.1 MCH 31.5 MCHC 33.5 RDW Std Deviation 40.9 RDW Coeff of Debbie 11.9 Plt Count 195 MPV 10.3 Immature Gran % (Auto) 0.200 Neut % (Auto) 69.2 Lymph % (Auto) 21.2 [place] % (Auto) 9.2 Eos % (Auto) 0.2 Baso % (Auto) 0.0 Absolute Neuts (auto) 3.2 Absolute Lymphs (auto) 0.97 Nucleated RBC % 0 PT 14.4 INR 1.2 APTT 37.6 H Sodium 142 Potassium 3.3 L Chloride 110 H Carbon Dioxide 26.0 Anion Gap 6 BUN 6 L Creatinine 0.63 Estim Creat Clear Calc 80.58 Est GFR (MDRD) Af Amer 124 Est GFR (MDRD) Non-Af 103 BUN/Creatinine Ratio 9.6 L Glucose 141 H Calcium 8.8 Total Bilirubin 0.20 AST 39 H ALT 26 Alkaline Phosphatase 82 Troponin I High Sens 39 Total Protein 7.0 Albumin 2.9 L Globulin 4.1 Albumin/Globulin Ratio 0.7 L 04/19/21 01:30 WBC RBC Hgb Hct MCV MCH MCHC RDW Std Deviation RDW Coeff of Debbie Plt Count MPV Immature Gran % (Auto) Neut % (Auto) Lymph % (Auto) [place] % (Auto) Eos % (Auto) Baso % (Auto) Absolute Neuts (auto) Absolute Lymphs (auto) Nucleated RBC % PT INR APTT Sodium Potassium Chloride Carbon Dioxide Anion Gap BUN Creatinine Estim Creat Clear Calc Est GFR (MDRD) Af Amer Est GFR (MDRD) Non-Af BUN/Creatinine Ratio Glucose Calcium Total Bilirubin AST ALT Alkaline Phosphatase Troponin I High Sens 43 Total Protein Albumin Globulin Albumin/Globulin Ratio EKG Initial EKG: Attestation: I personally reviewed and interpreted this EKG as follows: Interpretation: Atrial Fibrillation (139) and Non-Specific ST Changes Discharge Plan Triage Chief Complaint: Palpitations ED Provider: Dale Hanson Dx/Rx/DC Orders Clinical Impression: Atrial fibrillation, COVID-19 Instructions: ED AFIB Prescriptions: No Action metformin 500 mg Tablet 500 mg PO DAILY RF: 0 albuterol sulfate [ProAir HFA] 90 mcg/actuation HFA aerosol inhaler 1 - 2 puff INHALATION Q4H PRN (Reason: shortness of breath/wheezing) RF: 0 thyroid (pork) [[place] Thyroid] 30 mg tablet 60 mg PO DAILY RF: 0 diltiazem HCl 120 mg Capsule,Extended Release 24hr 120 mg PO DAILY Qty: 30 RF: 0 Eliquis 5 mg Tablet 5 mg PO BID Qty: 60 RF: 0 metoprolol succinate 25 mg tablet extended release 24 hr 50 mg PO BID Qty: 0 RF: 0 fluticasone propion-salmeterol [Advair Diskus] 250-50 mcg/dose Blister With Device 1 inh INHALATION BID RF: 0 Primary Care Provider: Tere Muro Referrals: Tere Muro MD [Primary Care Provider] - 3-5 Days Arnold Alonso MD [STAFF PHYSICIAN] - 5-7 Days Disposition Disposition: Home, Self Care
[2021-04-18 23:46] LABS: Absolute Lymphocyte Count 0.97 X10^3/uL (0.83-4.51); Absolute Neutrophil Count 3.2 X10^3/uL (2.0-7.7); Eosinophil# 0.01 X10^3/uL; Eosinophils% 0.2 % (0-5); Hematocrit 38.5 % (37-47); Hemoglobin 12.9 g/dL (12.0-15.0); Lymphocyte # 0.97 X10^3/ul (0.83-4.51); Lymphocyte % 21.2 % (19-41); Mean Corp Hgb Conc 33.5 g/dL (32-36); Mean Corpuscular Hgb 31.5 pg (27.0-32.0); Mean Corpuscular Volume 94.1 fL (81-99); Mean Platelet Vol. 10.3 fl (6.2-12.0); Monocyte# 0.42 X10^3/uL; Monocyte% 9.2 % (0-10); NRBC Flagged by Analyzer 0 % (0-5); Neutrophil # 3.17 X10^3/uL (2.7-7.7); Neutrophil % 69.2 % (47-70); Platelet Count 195 K/mm3 (150-450); RBC Distribution Width CV 11.9 % (11.6-14.6); RBC Distribution Width SD 40.9 fl (35.1-43.9); Red Blood Count 4.09 M/mm3 (4.2-5.4); White Blood Count 4.6 K/mm3 (4.4-11.0)
[2021-04-18] MEDS: dilTIAZem 25 MG/5 ML Vial 20 MG IV BOLUS (23:48)
[2021-04-18 23:56] LABS: International Normalized Ratio 1.2; Prothrombin Time (Protime)PT. 14.4 SECONDS (11.7-14.9)
[2021-04-18 23:57] LABS: Partial Thromboplast Time 37.6 Seconds (24.1-36.2)
[2021-04-19 00:02] LABS: ALB/GLOB Ratio 0.7 RATIO (0.9-2.4); AST(SGOT) 39 U/L (15-37); Alanine Aminotransfer ALT/SGPT 26 U/L (13-56); Albumin, Serum 2.9 g/dL (3.2-5.0); Alkaline Phosphatase 82 U/L (45-117); Anion Gap 6 (5-15); BUN 6 mg/dL (7-18); BUN/Creat Ratio 9.6 RATIO (10-20); Calcium,Total 8.8 mg/dL (8.5-10.1); Chloride 110 mmol/L (98-107); Creatinine, Serum 0.63 mg/dL (0.55-1.02); EST Glomerular Filtration Rate 103 mL/min (>60); Est Glom Filt Rate - Afr Amer 124 mL/min (>60); Estimated Creatinine Clearance 80.58 ml/min; Globulin 4.1 g/dL (2.2-4.2); Glucose 141 mg/dL (74-106); Potassium 3.3 mmol/L (3.5-5.1); Sodium Level 142 mmol/L (136-145); Troponin-I HS 39 pg/mL (3.0-54.0)
[2021-04-19 01:58] LABS: Troponin-I HS 43 pg/mL (3.0-54.0)
[2021-04-19 02:24] VITALS: BP 102/81; PULSE 106; RESP 16; O2SAT 96
[2021-04-19] MEDS: dilTIAZem 30 MG Tablet PO (02:33)
[2021-04-19] MEDS: dilTIAZem 25 MG/5 ML Vial 10 MG IV BOLUS (03:07)
[2021-04-19 04:16] VITALS: BP 108/70; PULSE 78; RESP 16; O2SAT 93
== END 2021-04-19 04:17 | disposition home or self-care (01) ==
PROVIDERS: Emergency Provider Emergency Medicine; PCP Family Medicine
DX: I48.91 Unspecified atrial fibrillation (principal); U07.1 COVID-19; E03.9 Hypothyroidism, unspecified; E11.9 Type 2 diabetes mellitus without complications; Z79.01 Long term (current) use of anticoagulants; Z79.51 Long term (current) use of inhaled steroids; Z79.84 Long term (current) use of oral hypoglycemic drugs; Z85.3 Personal history of malignant neoplasm of breast; Z87.891 Personal history of nicotine dependence
CPT/HCPCS: 80053; 84484; 85025; 85610; 85730; 93005; 99285

== ENCOUNTER 2021-07-25 00:58 | Emergency (ER) | payer OTHER, SELFPAY ==
--- NOTE | 2021-07-25 02:27 | EKG12_ITS ---
Test Reason : A-FIB Blood Pressure : / mmHG Vent. Rate : 073 BPM Atrial Rate : 308 BPM P-R Int : 000 ms QRS Dur : 082 ms QT Int : 388 ms P-R-T Axes : 000 079 053 degrees QTc Int : 427 ms Atrial flutter with variable A-V block Abnormal ECG Confirmed by JOHN CORNELIUS, MERRILL ([id number]), design editor SRAVAN CASEY ([id number]) on 07/28/2021 10:38:57 AM Referred By: Confirmed By:MERRILL LOPEZ MD
--- NOTE | 2021-07-25 03:19 | EX.ED.DYSGE1 ---
HPI History of Present Illness Informant: patient Narrative Narrative: Of note systems on downtime, T-sheet, dictation is placed while patient in the department. Presents recurrent palpitations starting at 8 PM yesterday. No lightheaded symptoms. Feels it racing. She was diagnosed with atrial fibrillation April 2021 with Covid at that time. Currently on diltiazem 120 mg twice daily her last dose 8:30 PM after the initial presentation symptoms. She is on Eliquis 5 mg twice daily. She is also on metoprolol 25 mg twice daily for tachycardia. Recently has only taking half a dose due to low heart rate. She is followed by Dr. 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 She actually states she saw him yesterday for follow-up. She has been having intermittent spurts of palpitations and racing heart, there is plans for an upcoming stress test and transition over to flecainide per patient. Denies alcohol tobacco or illicit drug use. Denies any cough symptoms. No recent vomiting or diarrhea. Prior similar symptoms: Yes PFSH PFS Medical History Atrial fibrillation History of left heart catheterization (LHC) (~04/22/13) HTN (hypertension) HX: breast cancer Hypothyroidism SVT (supraventricular tachycardia) Tachycardia Type 2 diabetes mellitus Home Medications albuterol sulfate [ProAir HFA] 1 - 2 puff INHALATION Q4H PRN 04/15/21 [History Last Taken Unknown] apixaban 5 mg tablet 5 mg PO BID #180 tab 05/30/21 [Rx Last Taken Unknown] diltiazem HCl 120 mg capsule,extended release 24 hr 120 mg PO BID #180 cap 05/30/21 [Rx Last Taken Unknown] fluticasone 250 mcg-salmeterol 50 mcg/dose blistr powdr for inhalation 1 inh INHALATION BID PRN 05/30/21 [History Last Taken Unknown] metformin 500 mg tablet 1,000 mg PO DAILY tab 05/30/21 [History Last Taken Unknown] metoprolol succinate 25 mg tablet,extended release 24 hr 12.5 mg PO BID #90 tab 05/30/21 [Rx Last Taken Unknown] thyroid (pork) 60 mg tablet 60 mg PO DAILY 05/30/21 [History Last Taken Unknown] Allergy/AdvReac Type Severity Reaction Status Date / Time cyclobenzaprine Allergy Severe dyspnea Verified 05/30/21 13:05 Sulfa (Sulfonamide Allergy Severe hives Verified 05/30/21 13:05 Antibiotics) Family History Mother Diabetes Myocardial infarction CVA (cerebral vascular accident) Father CVA (cerebral vascular accident) Surgical History History of breast reconstruction History of total mastectomy of left breast Hx of lumpectomy Social History Smoking Status: Former smoker alcohol intake: never substance use type: does not use caffeine: Yes Type: tea Number of servings: 1 ROS ROS ED Constitutional Constitutional ED: Denies chills, fever(s) or sweats Eyes Eyes: Denies change in vision ENT ENT ED: Denies dysphagia or sore throat Cardiovascular Cardiovascular: Reports palpitations and racing heartbeat; Denies chest pain or leg edema Respiratory/Chest Respiratory/Chest: Denies cough, dyspnea or dyspnea on exertion Gastrointestinal Gastrointestinal: Denies abdominal pain, diarrhea, nausea or vomiting Genitourinary Genitourinary ED: Denies dysuria, hematuria or urinary frequency Musculoskeletal Musculoskeletal: Denies back pain, extremity pain or neck pain Integumentary Denies rash or wounds Neurologic Neurologic: Denies headache(s), paresthesias or weakness EXAM Physical Exam Const Positive well nourished and well developed General Appearance ED: well developed and NAD HEENT Reports moist mucous membranes normocephalic and atraumatic Eyes PERRL, EOMs intact bilaterally and conjunctivae normal General Eye ED: Yes normal appearance of both eyes Neck no lymphadenopathy and supple General: Negative for tenderness Chest Wall Chest: Negative for tenderness Resp normal respiratory effort and normal air movement Effort and Inspection: symmetric chest movement; Negative for respiratory distress Cardio no murmurs Rate: tachycardic Rhythm: abnormal rhythm Peripheral Pulses: pulses 2+ throughout GI normal to inspection, nondistended, normoactive bowel sounds and non-tender Palpation: Negative for guarding or rebound tenderness present Back/Spine no CVA tenderness and no thoracic nor lumbar tenderness Extremity normal to inspection General Extremety ED: Negative for edema or tenderness General Extremity: Negative for edema Neuro oriented x3 and no sensory deficits noted Sensorium / Orientation: awake and alert Skin no rashes or lesions noted and no wounds MDM MDM MDM Narrative Medical decision making narrative: Patient to monitor atrial fibrillation RVR heart rate 120s to 140s systolic blood pressure 160s. She is asymptomatic sent for the palpitations. She is ordered for 20 mg IV Cardizem. Heart rate down to 70s to 90s. Her symptoms are improved blood pressure stable. I did check labs hemoglobin 14.5 potassium 3.7 sodium 142 creatinine 0.63 magnesium 2.0. She remained stable feeling better. Discussed she can likely convert spontaneously. She is currently rate controlled she is on Cardizem. Discussed if still elevated heart rates she will take her normal 25 mg of metoprolol at home. Return if any worsening symptoms. Patient understands and agrees with this plan at this time. All questions were answered. EKG Initial EKG: Attestation: I personally reviewed and interpreted this EKG as follows: Comments: Atrial fibrillation rate of 73, no ST or T wave changes. Of note obtained after Cardizem was given. Discharge Plan Triage ED Provider: Huy Rain Dx/Rx/DC Orders Clinical Impression: Atrial fibrillation, controlled, Palpitation Instructions: ED AFIB Prescriptions: No Action thyroid (pork) [[place] Thyroid] 60 mg tablet 60 mg PO DAILY RF: 0 diltiazem HCl 120 mg capsule,extended release 24hr 120 mg PO BID Qty: 180 RF: 3 Eliquis 5 mg tablet 5 mg PO BID Qty: 180 RF: 3 metoprolol succinate 25 mg tablet extended release 24 hr 12.5 mg PO BID Qty: 90 RF: 3 albuterol sulfate [ProAir HFA] 90 mcg/actuation HFA aerosol inhaler 1 - 2 puff INHALATION Q4H PRN (Reason: shortness of breath/wheezing) RF: 0 metformin 500 mg tablet 1,000 mg PO DAILY RF: 0 fluticasone propion-salmeterol [Advair Diskus] 250-50 mcg/dose blister with device 1 inh INHALATION BID PRNRF: 0 Primary Care Provider: Tere Muro Referrals: Tere Muro MD [Primary Care Provider] - 3-5 Days Activity Restrictions/Additional Instructions: Recurrent atrial fibrillation. Rate controlled at this time. Continue your diltiazem and metoprolol. You are on Eliquis. 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 Return if any worsening symptoms. Disposition Disposition: Home, Self Care
[2021-07-25 06:47] LABS: BUN 14 mg/dL (7-18); BUN/Creat Ratio 22.2 RATIO (10-20); Creatinine, Serum 0.63 mg/dL (0.55-1.02); EST Glomerular Filtration Rate 102 mL/min (>60); Est Glom Filt Rate - Afr Amer 124 mL/min (>60); Glucose 121 mg/dL (74-106)
[2021-07-25 06:48] LABS: Anion Gap 5 (5-15); Calcium,Total 9.5 mg/dL (8.5-10.1); Chloride 110 mmol/L (98-107); Potassium 3.6 mmol/L (3.5-5.1); Sodium Level 142 mmol/L (136-145)
[2021-07-25 07:17] LABS: Basophil% 2.8 % (0-1); Eosinophils% 1.1 % (0-5); Hematocrit 42.6 % (37-47); Hemoglobin 14.5 g/dL (12.0-15.0); Lymphocyte % 45.5 % (19-41); Mean Corpuscular Hgb 30.9 pg (27.0-32.0); Mean Corpuscular Volume 90.8 fL (81-99); Mean Platelet Vol. 10.6 fl (6.2-12.0); Monocyte% 11.2 % (0-10); Neutrophil % 39.2 % (47-70); Platelet Count 236 K/mm3 (150-450); RBC Distribution Width CV 11.9 % (11.6-14.6); RBC Distribution Width SD 39.6 fl (35.1-43.9); Red Blood Count 4.69 M/mm3 (4.2-5.4); White Blood Count 5.7 K/mm3 (4.4-11.0)
[2021-07-25 07:18] LABS: Absolute Neutrophil Count 2.2 X10^3/uL (2.0-7.7); NRBC Flagged by Analyzer 0 % (0-5)
== END 2021-07-25 03:40 | disposition home or self-care (01) ==
PROVIDERS: Emergency Provider Emergency Medicine; PCP Family Medicine; Visit Provider Emergency Medicine
DX: I48.91 Unspecified atrial fibrillation (principal); E11.9 Type 2 diabetes mellitus without complications; E03.9 Hypothyroidism, unspecified; Z87.891 Personal history of nicotine dependence; I10 Essential (primary) hypertension; Z86.16 Personal history of COVID-19; Z85.3 Personal history of malignant neoplasm of breast
CPT/HCPCS: 36415; 80048; 83735; 85025; 93005; 96361; 96374; 99284; J7030; A4216

== ENCOUNTER 2021-10-20 09:00 | Emergency (ER) | payer OTHER, SELFPAY ==
[2021-10-20 09:00] VITALS: BP 157/98; PULSE 98; RESP 14; TEMP 36.5; O2SAT 100; BMI 21.2
--- NOTE | 2021-10-20 09:25 | EX.ED.DYSGE1 ---
HPI History of Present Illness Chief Complaint: Palpitations Narrative Narrative: 60-year-old female here for chief complaint of palpitations. Patient has not medical history significant for SVT, type 2 diabetes, asthma, atrial fibrillation. The patient states she developed palpitations started 10 hours ago. States her symptoms are constant, severe without alleviating factors. States it feels like when she has been in A. fib in the past. Denies any chest pain. Denies any recent surgery, chemotherapy, estrogen use, hemoptysis, unilateral lower extremity edema, recent travel. Denies history of DVT PE. Denies any bleeding diathesis. Denies any volume loss such as vomiting or diarrhea. Patient denies any chest pain. He does note some mild lower extremity edema which she attributes as a side effect of her diltiazem medication. She states she is compliant with Eliquis. Old chart reviewed: Currently on Eliquis, diltiazem Left heart catheterization in 2012 Last echocardiogram 2020 ejection fraction 60% [facility] History Atrial fibrillation History of left heart catheterization (LHC) (~04/22/13) HTN (hypertension) HX: breast cancer Hypothyroidism SVT (supraventricular tachycardia) Tachycardia Type 2 diabetes mellitus Home Medications albuterol sulfate 90 mcg/actuation aerosol inhaler (ProAir HFA) 1 - 2 puff inhalation Q4H PRN shortness of breath/wheezing 04/15/21 [History Last Taken Unknown] apixaban 5 mg tablet (Eliquis) 5 mg PO BID #180 tabs 05/30/21 [Rx Last Taken Unknown] diltiazem HCl 120 mg capsule,extended release 24 hr 120 mg PO BID #180 caps 05/30/21 [Rx Last Taken Unknown] fluticasone 250 mcg-salmeterol 50 mcg/dose blistr powdr for inhalation (Advair Diskus) 1 inh inhalation BID PRN 05/30/21 [History Last Taken Unknown] metformin 500 mg tablet 1,000 mg PO DAILY 05/30/21 [History Last Taken Unknown] metoprolol succinate 25 mg tablet,extended release 24 hr 12.5 mg PO BID #90 tabs 05/30/21 [Rx Last Taken Unknown] thyroid (pork) 60 mg tablet ([place] Thyroid) 60 mg PO DAILY 05/30/21 [History Last Taken Unknown] Allergy/AdvReac Type Severity Reaction Status Date / Time cyclobenzaprine Allergy Severe dyspnea Verified 10/20/21 09:02 Sulfa (Sulfonamide Allergy Severe hives Verified 10/20/21 09:02 Antibiotics) Family History Mother Diabetes Myocardial infarction CVA (cerebral vascular accident) Father CVA (cerebral vascular accident) Surgical History History of breast reconstruction History of total mastectomy of left breast Hx of lumpectomy Social History Smoking Status: Former smoker alcohol intake: never substance use type: does not use caffeine: Yes Type: tea Number of servings: 1 ROS ROS ED Eyes Eyes: Denies other visual disturbances ENT ENT ED: Denies ear pain Cardiovascular Cardiovascular: Reports palpitations; Denies chest pain Respiratory/Chest Respiratory/Chest: Denies dyspnea Gastrointestinal Gastrointestinal: Denies abdominal pain Genitourinary Genitourinary ED: Denies dysuria Musculoskeletal Musculoskeletal: Denies joint pain Integumentary Denies rash Neurologic Neurologic: Denies dizziness, focal weakness, numbness, syncope or weakness Psychiatric Psychiatric: Denies homicidal ideation or suicidal ideation EXAM Physical Exam Const Vital Signs: 10/20/21 09:00 10/20/21 09:43 10/20/21 09:54 Temperature 97.7 F L Temperature Source Temporal Pulse Rate 98 Respiratory Rate 14 Respiratory Effort Normal Blood Pressure 157/98 H Blood Pressure Mean 117 Pulse Ox 100 Oxygen Delivery Method Room Air Room Air 10/20/21 11:08 Temperature Temperature Source Pulse Rate 63 Respiratory Rate 16 Respiratory Effort Blood Pressure 125/74 H Blood Pressure Mean 91 Pulse Ox 98 Oxygen Delivery Method Negative for alert or oriented x3 General Appearance ED: Negative for comfortable Orientation / Consciousness: Negative for awake HEENT Denies normocephalic Face and Sinus: Negative for face symmetric External Ear: Negative for external ears normal Mouth ED: No moist mucous membranes normal Throat: Negative for posterior oropharynx normal Eyes Negative for PERRL or EOMs intact bilaterally Neck No full ROM Carotids: other Other Details: no carotid bruits Chest Wall Negative for inspection of chest normal Resp No normal respiratory effort, No no retractions, No no use of accessory muscles and No clear to auscultation bilaterally Cardio Negative for no murmurs or peripheral pulses 2+ throughout Cardio Narrative: Patient had an irregularly irregular rhythm likely A. fib Rate: tachycardic Bruits: Negative for abdominal aortic bruit Peripheral Pulses: pulses 2+ throughout GI Negative for no bruits GI Narrative: no pulsatile abdominal masses Negative for no CVA tenderness Back/Spine Cervical Spine: Negative for cervical ROM normal Extremity Negative for normal to inspection or full ROM MDM MDM MDM Narrative Medical decision making narrative: 60-year-old female comes in with palpitations history of atrial fibrillation compliant with Eliquis, diltiazem and metoprolol. Patient was initially hemodynamically stable, afebrile, nontoxic-appearing. Exam consistent with atrial fibrillation. I obtained a broad lab and imaging work-up to further elicit the etiology of his complaints. I obtain labs to rule out thyroid dysfunction, anemia, electrode abnormalities, myocardial ischemia, volume overload. Initial EKG consistent with atrial fibrillation no obvious evidence of STEMI. Obtained a chest x-ray to rule out cardiomegaly, pulmonary edema, pneumonia. Labs images were remarkable for no evidence of myocardial ischemia with negative troponin. BNP was only mildly elevated likely owing to A. fib with RVR. Patient no evidence of significant electrolyte abnormalities, kidney dysfunction. No evidence of hyperthyroidism with a normal TSH. Upon reevaluation patient was noted to be in A. fib with RVR with a heart rate as high as 150. Ordered 20 mg of IV diltiazem. Just prior to diltiazem dose patient converted to normal sinus rhythm. Repeat EKG showed normal sinus rhythm with no evidence of ischemia. Had a shared decision-making discussion with the patient. Discussed labs and images. Discussed discharge. Also discussed hospitalization. Patient was alert and orient x3 she had capacity to make own medical she was in chose to be discharged home. I agree with this patient no evidence of a life or limb threatening etiology. She was discharged stable condition. Lab Data Attestation: I reviewed the patient's lab results. Lab results narrative: CBC without leukocytosis, severe anemia, no thrombocytopenia. Labs: Laboratory Results - last 24 hr 10/20/21 10/20/21 10/20/21 09:50 09:50 09:50 WBC 5.6 RBC 4.42 Hgb 13.7 Hct 42.4 MCV 95.9 MCH 31.0 MCHC 32.3 RDW Std Deviation 42.3 RDW Coeff of Debbie 12.1 Plt Count 268 MPV 10.6 Immature Gran % (Auto) 0.000 Neut % (Auto) 60.8 Lymph % (Auto) 26.4 [place] % (Auto) 9.6 Eos % (Auto) 2.1 Baso % (Auto) 1.1 H Absolute Neuts (auto) 3.4 Absolute Lymphs (auto) 1.48 Nucleated RBC % 0 Sodium 139 Potassium 4.3 Chloride 106 Carbon Dioxide 31.0 Anion Gap 2 L BUN 15 Creatinine 0.60 Estim Creat Clear Calc 88.60 Est GFR (MDRD) Af Amer 131 Est GFR (MDRD) Non-Af 108 BUN/Creatinine Ratio 25.0 H Glucose 106 Calcium 9.6 Troponin I High Sens 5 B-Natriuretic Peptide 199.0 H TSH 3.36 Radiography Diagnostic Testing: Clinical Impression(s) from Imaging Studies Chest X-Ray 10/20/21 09:43 IMPRESSION: No acute cardiopulmonary abnormality. Electronically Signed: Raf Matthews MD at 10:45 EDT , EKG EKG shows atrial fibrillation, normal axis, normal intervals, no obvious STEMI: Attestation: I personally reviewed and interpreted this EKG as follows: Interpretation: S-T Depression (Noted laterally, similar to prior EKG noted in 2020) Treatment and Re-Evaluation Narrative: Upon reevaluation patient's heart rate was within normal limits, normal sinus rhythm, lungs were clear. Patient is appropriate for discharge home Discharge Plan Triage Chief Complaint: Palpitations ED Provider: Zackery Yoon Dx/Rx/DC Orders Clinical Impression: Atrial fibrillation with rapid ventricular response Instructions: ED AFIB Prescriptions: No Action thyroid (pork) [[place] Thyroid] 60 mg tablet 60 mg PO DAILY diltiazem HCl 120 mg capsule,extended release 24hr 120 mg PO BID Qty: 180 3RF Eliquis 5 mg tablet 5 mg PO BID Qty: 180 3RF metoprolol succinate 25 mg tablet extended release 24 hr 12.5 mg PO BID Qty: 90 3RF albuterol sulfate [ProAir HFA] 90 mcg/actuation HFA aerosol inhaler 1 - 2 puff INHALATION Q4H PRN (Reason: shortness of breath/wheezing) metformin 500 mg tablet 1,000 mg PO DAILY fluticasone propion-salmeterol [Advair Diskus] 250-50 mcg/dose blister with device 1 inh INHALATION BID PRN Primary Care Provider: Tere Muro Referrals: Tere Muro MD [Primary Care Provider] - Activity Restrictions/Additional Instructions: Please return if your symptoms change or worsen. Specifically if you develop chest pain, shortness of breath, worsening lower extremity swelling, fatigue, inability to perform your activities of daily living. 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 He is continue to take your current medicines as prescribed. Disposition Disposition: Home, Self Care
--- NOTE | 2021-10-20 09:43 | RAD_ITS ---
EXAM: XR CHEST, 1 VIEW CLINICAL INDICATION: chest pain TECHNIQUE: Frontal view of the chest. This report was created using [employer] report generation technology. COMPARISON: 04/17/2021 FINDINGS: LUNGS AND PLEURAL SPACES: Clearing of the previously noted pulmonary lesions. No pneumothorax. No effusion. HEART: Unremarkable. Normal heart size. MEDIASTINUM: Central airways and mediastinal contour are unremarkable. BONES/JOINTS: Unremarkable. SOFT TISSUES: Unremarkable. RAD/Chest 1 View (Portable) IMPRESSION: No acute cardiopulmonary abnormality. Electronically Signed: Raf Matthews MD at 10:45 EDT ,
--- NOTE | 2021-10-20 09:43 | EKG12_ITS ---
Test Reason : REPEAT-RHYTHM CHANGE Blood Pressure : / mmHG Vent. Rate : 064 BPM Atrial Rate : 064 BPM P-R Int : 144 ms QRS Dur : 084 ms QT Int : 414 ms P-R-T Axes : 078 073 054 degrees QTc Int : 427 ms Normal sinus rhythm Nonspecific ST-segment abnormality Confirmed by MONICA CORNELIUS, LIZZETTE ([id number]), supervising film or videotape editor SRAVAN CASEY ([id number]) on 10/21/2021 9:00:54 AM Referred By: ARTHUR Confirmed By:LIZZETTE ANDERSON MD
[2021-10-20 10:00] LABS: Absolute Lymphocyte Count 1.48 X10^3/uL (0.83-4.51); Absolute Neutrophil Count 3.4 X10^3/uL (2.0-7.7); Basophil# 0.06 X10^3/uL; Basophil% 1.1 % (0-1); Eosinophil# 0.12 X10^3/uL; Eosinophils% 2.1 % (0-5); Hematocrit 42.4 % (37-47); Hemoglobin 13.7 g/dL (12.0-15.0); Lymphocyte # 1.48 X10^3/ul (0.83-4.51); Lymphocyte % 26.4 % (19-41); Mean Corp Hgb Conc 32.3 g/dL (32-36); Mean Corpuscular Volume 95.9 fL (81-99); Mean Platelet Vol. 10.6 fl (6.2-12.0); Monocyte# 0.54 X10^3/uL; Monocyte% 9.6 % (0-10); NRBC Flagged by Analyzer 0 % (0-5); Neutrophil % 60.8 % (47-70); Platelet Count 268 K/mm3 (150-450); RBC Distribution Width CV 12.1 % (11.6-14.6); RBC Distribution Width SD 42.3 fl (35.1-43.9); Red Blood Count 4.42 M/mm3 (4.2-5.4); White Blood Count 5.6 K/mm3 (4.4-11.0)
[2021-10-20 10:25] LABS: Anion Gap 2 (5-15); BUN 15 mg/dL (7-18); Calcium,Total 9.6 mg/dL (8.5-10.1); Chloride 106 mmol/L (98-107); EST Glomerular Filtration Rate 108 mL/min (>60); Est Glom Filt Rate - Afr Amer 131 mL/min (>60); Glucose 106 mg/dL (74-106); Potassium 4.3 mmol/L (3.5-5.1); Sodium Level 139 mmol/L (136-145); Thyroid Stim Hormone (TSH) 3.36 uIU/mL (0.358-3.74); Troponin-I HS (w/2H Reflex) 5 pg/mL (3.0-54.0)
--- NOTE | 2021-10-20 10:30 | EKG12_ITS ---
Test Reason : PALP Blood Pressure : / mmHG Vent. Rate : 108 BPM Atrial Rate : 090 BPM P-R Int : 000 ms QRS Dur : 088 ms QT Int : 352 ms P-R-T Axes : 000 079 -80 degrees QTc Int : 471 ms Atrial fibrillation Nonspecific ST and T wave abnormality Abnormal ECG Confirmed by MONICA CORNELIUS, LIZZETTE ([id number]), editorial clerk SRAVAN CASEY ([id number]) on 10/21/2021 9:01:13 AM Referred By: ARTHUR Confirmed By:LIZZETTE ANDERSON MD
[2021-10-20 11:08] VITALS: BP 125/74; PULSE 63; RESP 16; O2SAT 98
[2021-10-20 11:53] LABS: Reflex Troponin-HS? (from REC) Y
== END 2021-10-20 11:44 | disposition home or self-care (01) ==
PROVIDERS: Emergency Provider Emergency Medicine; PCP Family Medicine; Visit Provider Emergency Medicine
DX: I48.91 Unspecified atrial fibrillation (principal); I47.1 Supraventricular tachycardia; E11.9 Type 2 diabetes mellitus without complications; Z87.891 Personal history of nicotine dependence; I10 Essential (primary) hypertension; E03.9 Hypothyroidism, unspecified; R00.2 Palpitations; Z85.3 Personal history of malignant neoplasm of breast; R60.0 Localized edema
CPT/HCPCS: 71045; 80048; 83880; 84443; 84484; 85025; 93005; 99284; A4216

== ENCOUNTER 2021-11-05 11:29 | Emergency (ER) | payer OTHER, SELFPAY ==
[2021-11-05 11:30] VITALS: BP 149/69; PULSE 133; RESP 18; TEMP 36; O2SAT 100; BMI 21.2
--- NOTE | 2021-11-05 11:34 | ED.RN ---
HR WAS CHECKED AGAIN, HR NOW 52
--- NOTE | 2021-11-05 11:48 | EKG12_ITS ---
Test Reason : palpitations Blood Pressure : / mmHG Vent. Rate : 053 BPM Atrial Rate : 053 BPM P-R Int : 178 ms QRS Dur : 084 ms QT Int : 424 ms P-R-T Axes : 069 077 065 degrees QTc Int : 397 ms Sinus bradycardia Otherwise normal ECG Confirmed by MONICA CORNELIUS, LIZZETTE ([id number]), make up editor SRAVAN CASEY ([id number]) on 11/08/2021 9:40:41 AM Referred By: Oliva/Eric Confirmed By:LIZZETTE ANDERSON MD
--- NOTE | 2021-11-05 12:11 | EX.ED.DYSGE1 ---
HPI History of Present Illness Chief Complaint: Palpitations Narrative Narrative: Patient presents with palpitations for about 11 hours although they stopped since she got to the ED. She has a history of A. fib and usually she is in sinus. She felt like this was A. fib. No chest pain no back pain no tearing sensation no pleuritic component she otherwise now is asymptomatic. [facility] Medical History Atrial fibrillation History of left heart catheterization (LHC) (~04/22/13) HTN (hypertension) HX: breast cancer Hypothyroidism SVT (supraventricular tachycardia) Tachycardia Type 2 diabetes mellitus Home Medications albuterol sulfate 90 mcg/actuation aerosol inhaler (ProAir HFA) 1 - 2 puff inhalation Q4H PRN shortness of breath/wheezing 04/15/21 [History Last Taken Unknown] apixaban 5 mg tablet (Eliquis) 5 mg PO BID #180 tabs 05/30/21 [Rx Last Taken Unknown] diltiazem HCl 120 mg capsule,extended release 24 hr 120 mg PO BID #180 caps 05/30/21 [Rx Last Taken Unknown] fluticasone 250 mcg-salmeterol 50 mcg/dose blistr powdr for inhalation (Advair Diskus) 1 inh inhalation BID PRN 05/30/21 [History Last Taken Unknown] metformin 500 mg tablet 1,000 mg PO DAILY 05/30/21 [History Last Taken Unknown] metoprolol succinate 25 mg tablet,extended release 24 hr 12.5 mg PO BID #90 tabs 05/30/21 [Rx Last Taken Unknown] thyroid (pork) 60 mg tablet ([place] Thyroid) 60 mg PO DAILY 05/30/21 [History Last Taken Unknown] Allergy/AdvReac Type Severity Reaction Status Date / Time cyclobenzaprine Allergy Severe dyspnea Verified 11/05/21 11:32 Sulfa (Sulfonamide Allergy Severe hives Verified 11/05/21 11:32 Antibiotics) Family History Mother Diabetes Myocardial infarction CVA (cerebral vascular accident) Father CVA (cerebral vascular accident) Surgical History History of breast reconstruction History of total mastectomy of left breast Hx of lumpectomy Social History Smoking Status: Former smoker alcohol intake: never substance use type: does not use caffeine: Yes Type: tea Number of servings: 1 ROS ROS ED ROS Narrative Past medical history: Reviewed, includes hypertension, hypothyroidism, A. fib, asthma, type 2 diabetes Medications: Reviewed Social history: Noncontributory Review of systems: All systems negative except as indicated General: No fever Eyes: No visual changes ENT: No upper airway congestion, normal voice Neck: No neck pain Cardiovascular: No chest pain. Palpitations that have resolved Respiratory: No shortness of breath or cough Gastrointestinal: No abdominal pain, nausea vomiting or diarrhea Genitourinary: No dysuria Musculoskeletal: Denies myalgias no difficulty with ambulation Skin: No rash Neurological: No memory loss, confusion or any focal weakness Psych: No recent behavioral changes Hematologic: No easy bleeding or easy bruising EXAM Physical Exam Narrative Exam Narrative: Physical exam General: Well nourished, Well developed, No Acute Distress Head: Normocephalic, Atraumatic Eyes: Conjunctiva not pale ENT: Moist mucous membranes Neck: Supple, Nontender, No lymphadenopathy Cardiovascular: Regular rate, Regular rhythm, there is no irregularity, there is no tachycardia. Heart rate is about 60 Respiratory: No distress, CTA bilaterally Abdomen: Soft, Nontender, Nondistended Back: Nontender, Normal Inspection. Negative for: CVA tenderness Extremities: Nontender, No edema Skin: Normal color, No rash Neurological: Alert, Normal Strength, Normal Sensation Psychological: Normal affect Const Vital Signs: 11/05/21 11:30 Temperature 96.8 F L Temperature Source Temporal Pulse Rate 133 H Respiratory Rate 18 Blood Pressure 149/69 H Blood Pressure Mean 95 Pulse Ox 100 Oxygen Delivery Method Room Air MDM MDM MDM Narrative Medical decision making narrative: Patient is now in sinus rhythm she has been in sinus rhythm since being in the ED she has a normal work-up. I believe she is stable for discharge, she can follow-up with her curriculum development coordinator at [facility]. Lab Data Labs: Laboratory Results - last 24 hr 11/05/21 11/05/21 12:02 12:02 WBC 5.6 RBC 4.12 L Hgb 12.9 Hct 39.7 MCV 96.4 MCH 31.3 MCHC 32.5 RDW Std Deviation 44.8 H RDW Coeff of Debbie 12.5 Plt Count 234 MPV 10.4 Immature Gran % (Auto) 0.700 Neut % (Auto) 63.6 Lymph % (Auto) 24.6 [place] % (Auto) 8.4 Eos % (Auto) 2.0 Baso % (Auto) 0.7 Absolute Neuts (auto) 3.6 Absolute Lymphs (auto) 1.37 Nucleated RBC % 0 Sodium 140 Potassium 4.0 Chloride 107 Carbon Dioxide 31.0 Anion Gap 2 L BUN 9 Creatinine 0.60 Estim Creat Clear Calc 88.60 Est GFR (MDRD) Af Amer 129 Est GFR (MDRD) Non-Af 107 BUN/Creatinine Ratio 14.9 Glucose 137 H Calcium 9.3 Total Bilirubin 0.30 AST 20 ALT 30 Alkaline Phosphatase 91 Total Protein 7.0 Albumin 3.9 Globulin 3.1 Albumin/Globulin Ratio 1.3 EKG Initial EKG: Comments: Sinus rhythm with a rate of 53. Normal NC and QTc intervals. No ischemic changes. Otherwise normal EKG Interpreted by emergency doctor. Discharge Plan Triage Chief Complaint: Palpitations ED Provider: Arnold Baptiste Dx/Rx/DC Orders Clinical Impression: A-fib, Palpitation Instructions: ED AFIB Prescriptions: No Action thyroid (pork) [[place] Thyroid] 60 mg tablet 60 mg PO DAILY diltiazem HCl 120 mg capsule,extended release 24hr 120 mg PO BID Qty: 180 3RF Eliquis 5 mg tablet 5 mg PO BID Qty: 180 3RF metoprolol succinate 25 mg tablet extended release 24 hr 12.5 mg PO BID Qty: 90 3RF albuterol sulfate [ProAir HFA] 90 mcg/actuation HFA aerosol inhaler 1 - 2 puff INHALATION Q4H PRN (Reason: shortness of breath/wheezing) metformin 500 mg tablet 1,000 mg PO DAILY fluticasone propion-salmeterol [Advair Diskus] 250-50 mcg/dose blister with device 1 inh INHALATION BID PRN Primary Care Provider: Tere Muro Referrals: Tere Muro MD [Primary Care Provider] - Activity Restrictions/Additional Instructions: Follow-up with your [facility] curriculum development coordinator in the next week. Disposition Disposition: Home, Self Care
[2021-11-05 12:15] LABS: Absolute Lymphocyte Count 1.37 X10^3/uL (0.83-4.51); Absolute Neutrophil Count 3.6 X10^3/uL (2.0-7.7); Basophil# 0.04 X10^3/uL; Basophil% 0.7 % (0-1); Eosinophil# 0.11 X10^3/uL; Hematocrit 39.7 % (37-47); Hemoglobin 12.9 g/dL (12.0-15.0); Lymphocyte # 1.37 X10^3/ul (0.83-4.51); Lymphocyte % 24.6 % (19-41); Mean Corp Hgb Conc 32.5 g/dL (32-36); Mean Corpuscular Hgb 31.3 pg (27.0-32.0); Mean Corpuscular Volume 96.4 fL (81-99); Mean Platelet Vol. 10.4 fl (6.2-12.0); Monocyte# 0.47 X10^3/uL; Monocyte% 8.4 % (0-10); NRBC Flagged by Analyzer 0 % (0-5); Neutrophil # 3.55 X10^3/uL (2.7-7.7); Neutrophil % 63.6 % (47-70); Platelet Count 234 K/mm3 (150-450); RBC Distribution Width CV 12.5 % (11.6-14.6); RBC Distribution Width SD 44.8 fl (35.1-43.9); Red Blood Count 4.12 M/mm3 (4.2-5.4); White Blood Count 5.6 K/mm3 (4.4-11.0)
[2021-11-05 12:31] LABS: ALB/GLOB Ratio 1.3 RATIO (0.9-2.4); AST(SGOT) 20 U/L (15-37); Alanine Aminotransfer ALT/SGPT 30 U/L (13-56); Albumin, Serum 3.9 g/dL (3.2-5.0); Alkaline Phosphatase 91 U/L (45-117); Anion Gap 2 (5-15); BUN 9 mg/dL (7-18); BUN/Creat Ratio 14.9 RATIO (10-20); Calcium,Total 9.3 mg/dL (8.5-10.1); Chloride 107 mmol/L (98-107); EST Glomerular Filtration Rate 107 mL/min (>60); Est Glom Filt Rate - Afr Amer 129 mL/min (>60); Globulin 3.1 g/dL (2.2-4.2); Glucose 137 mg/dL (74-106); Sodium Level 140 mmol/L (136-145)
[2021-11-05 13:26] VITALS: PULSE 47; RESP 13; O2SAT 100
== END 2021-11-05 13:28 | disposition home or self-care (01) ==
PROVIDERS: Emergency Provider Emergency Medicine; PCP Family Medicine; Visit Provider Emergency Medicine
DX: I48.91 Unspecified atrial fibrillation (principal); E11.9 Type 2 diabetes mellitus without complications; E03.9 Hypothyroidism, unspecified; R00.2 Palpitations; I10 Essential (primary) hypertension; Z87.891 Personal history of nicotine dependence; Z85.3 Personal history of malignant neoplasm of breast
CPT/HCPCS: 80053; 85025; 93005; 99284; A4216

== ENCOUNTER 2021-11-07 00:30 | Emergency (ER) | payer OTHER, SELFPAY ==
[2021-11-07] VITALS (11 sets, daily range): BP systolic 107–152; BP diastolic 57–100; PULSE 74–117; RESP 15–20; TEMP 36.2; O2SAT 97–100; BMI 21.4
--- NOTE | 2021-11-07 01:45 | EKG12_ITS ---
Test Reason : DYSRHYTHMIA Blood Pressure : / mmHG Vent. Rate : 080 BPM Atrial Rate : 300 BPM P-R Int : 000 ms QRS Dur : 086 ms QT Int : 358 ms P-R-T Axes : 000 089 -30 degrees QTc Int : 412 ms Atrial flutter with variable A-V block Nonspecific ST abnormality Abnormal ECG Confirmed by MONICA CORNELIUS, LIZZETTE ([id number]), continuity editor SRAVAN CASEY ([id number]) on 11/08/2021 9:24:46 AM Referred By: ANGEL Confirmed By:LIZZETTE ANDERSON MD
--- NOTE | 2021-11-07 01:46 | EDS_ITS ---
HPI History of Present Illness Chief Complaint: Palpitations Informant: patient Onset/Context/Timing Onset: Hours (4-5) Context: Sudden Onset (Occurred at rest) Timing: Continuous Quality: Irregular heartbeat Location: Chest Current Severity: Moderate Maximum Severity: Moderate Worsened by: Nothing Relieved by: Nothing Associated Symptoms Associated Symptoms: Nothing Narrative Narrative: Patient with a history of atrial fibrillation, she feels that every time she goes into it, she was here yesterday because of the same thing, but she spontaneously converted while she was here. It recurred today, it is persistent, and she is here to try to get converted. She is scheduled for an assessment for an ablation because this keeps happening. She is anticoagulated with Eliquis and has been for over 6 months. She denies any chest pain, shortness of breath, lightheadedness, near-syncope or syncope, or any other symptoms right now. No recent illness. Compliant with her medications which include diltiazem and metoprolol. [facility] Medical History Atrial fibrillation History of left heart catheterization (LHC) (~04/22/13) HTN (hypertension) HX: breast cancer Hypothyroidism SVT (supraventricular tachycardia) Tachycardia Type 2 diabetes mellitus Home Medications albuterol sulfate 90 mcg/actuation aerosol inhaler (ProAir HFA) 1 - 2 puff inhalation Q4H PRN shortness of breath/wheezing 04/15/21 [History Last Taken Unknown] apixaban 5 mg tablet (Eliquis) 5 mg PO BID #180 tabs 05/30/21 [Rx Last Taken Unknown] diltiazem HCl 120 mg capsule,extended release 24 hr 120 mg PO BID #180 caps 05/30/21 [Rx Last Taken Unknown] fluticasone 250 mcg-salmeterol 50 mcg/dose blistr powdr for inhalation (Advair Diskus) 1 inh inhalation BID PRN Shortness Of Breath Or Wheezing 05/30/21 [History Last Taken Unknown] metformin 500 mg tablet 1,000 mg PO DAILY 05/30/21 [History Last Taken Unknown] metoprolol succinate 25 mg tablet,extended release 24 hr 12.5 mg PO BID #90 tabs 05/30/21 [Rx Last Taken Unknown] thyroid (pork) 60 mg tablet ([place] Thyroid) 60 mg PO DAILY 05/30/21 [History Last Taken Unknown] Allergy/AdvReac Type Severity Reaction Status Date / Time cyclobenzaprine Allergy Severe dyspnea Verified 11/07/21 00:33 Sulfa (Sulfonamide Allergy Severe hives Verified 11/07/21 00:33 Antibiotics) Family History Mother Diabetes Myocardial infarction CVA (cerebral vascular accident) Father CVA (cerebral vascular accident) Surgical History History of breast reconstruction History of total mastectomy of left breast Hx of lumpectomy Social History Smoking Status: Former smoker alcohol intake: never substance use type: does not use caffeine: Yes Type: tea Number of servings: 1 ROS ROS ED Constitutional Constitutional ED: Denies chills or fever(s) Eyes Eyes: Denies change in vision or diplopia ENT ENT ED: Denies rhinorrhea or sore throat Cardiovascular Cardiovascular: Reports palpitations; Denies chest pain Respiratory/Chest Respiratory/Chest: Denies cough or dyspnea Gastrointestinal Gastrointestinal: Denies abdominal pain, diarrhea, nausea or vomiting Genitourinary Genitourinary ED: Denies dysuria or hematuria Musculoskeletal Musculoskeletal: Denies back pain or neck pain Integumentary Denies abscess or rash Neurologic Neurologic: Denies headache(s), paresthesias or weakness Psychiatric Psychiatric: Denies anxiety or suicidal thoughts EXAM Physical Exam Const Vital Signs: 11/07/21 00:30 11/07/21 01:00 11/07/21 02:01 Temperature 97.1 F L Temperature Source Temporal Pulse Rate 95 101 H 117 H Pulse Rate [1 (Initial Baseline)] Respiratory Rate 18 18 18 Respiratory Rate [1 (Initial Baseline)] Blood Pressure 152/90 H 151/88 H 138/86 H Blood Pressure [1 (Initial Baseline)] Blood Pressure Mean 110 109 103 Pulse Ox 99 97 98 Oxygen Delivery Method Room Air Room Air Oxygen Delivery Method [1 (Initial Baseline)] Oxygen Flow Rate (L/min) Oxygen Flow Rate (L/min) [1 (Initial Baseline)] Fraction of Inspired Oxygen (FIO2) [1 (Initial Baseline)] 11/07/21 02:05 11/07/21 04:23 11/07/21 04:25 Temperature Temperature Source Pulse Rate 79 109 H Pulse Rate [1 (Initial Baseline)] 107 H Respiratory Rate 18 15 Respiratory Rate [1 (Initial Baseline)] 18 Blood Pressure 107/57 L 148/89 H Blood Pressure [1 (Initial Baseline)] 148/89 H Blood Pressure Mean 73 Pulse Ox 97 100 Oxygen Delivery Method Room Air Nasal Cannula Oxygen Delivery Method [1 (Initial Baseline)] Nasal Cannula Oxygen Flow Rate (L/min) 2 Oxygen Flow Rate (L/min) [1 (Initial Baseline)] 99 Fraction of Inspired Oxygen (FIO2) [1 (Initial Baseline)] 2 11/07/21 04:29 11/07/21 04:34 11/07/21 04:39 Temperature Temperature Source Pulse Rate Pulse Rate [1 (Initial Baseline)] Respiratory Rate Respiratory Rate [1 (Initial Baseline)] Blood Pressure Blood Pressure [1 (Initial Baseline)] Blood Pressure Mean Pulse Ox Oxygen Delivery Method Room Air Room Air Room Air Oxygen Delivery Method [1 (Initial Baseline)] Oxygen Flow Rate (L/min) Oxygen Flow Rate (L/min) [1 (Initial Baseline)] Fraction of Inspired Oxygen (FIO2) [1 (Initial Baseline)] 11/07/21 04:42 Temperature Temperature Source Pulse Rate 80 Pulse Rate [1 (Initial Baseline)] Respiratory Rate 18 Respiratory Rate [1 (Initial Baseline)] Blood Pressure 126/75 H Blood Pressure [1 (Initial Baseline)] Blood Pressure Mean 92 Pulse Ox 100 Oxygen Delivery Method Room Air Oxygen Delivery Method [1 (Initial Baseline)] Oxygen Flow Rate (L/min) Oxygen Flow Rate (L/min) [1 (Initial Baseline)] Fraction of Inspired Oxygen (FIO2) [1 (Initial Baseline)] Positive well nourished and well developed General Appearance ED: well developed and NAD HEENT Reports moist mucous membranes normocephalic and atraumatic Eyes PERRL and EOMs intact bilaterally Neck full ROM and supple Resp normal respiratory effort and clear to auscultation bilaterally Cardio no murmurs Rhythm: abnormal rhythm irregularly irregular GI non-tender and non-distended Auscultation: normoactive bowel sounds Palpation: soft Back/Spine no CVA tenderness General Back: other FROM Extremity normal to inspection General Extremety ED: Negative for edema, pulses abnormal or tenderness General Extremity: Negative for edema or pulses abnormal Neuro oriented x3, CN's II-XII intact bilaterally and no sensory deficits noted Sensorium / Orientation: awake and alert Motor Exam: strength 5/5 throughout Skin no rashes or lesions noted and no wounds MDM MDM MDM Narrative Medical decision making narrative: I discussed cardioversion with this patient. She was apprehensive at first and preferred to get a dose of Cardizem and to be observed which is what we did after 20 of Cardizem, she is still in A. fib although more rate controlled mostly in the 80s. She still feels the palpitations. We discussed options which include discharge home with A. 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 She has done antidysrhythmic's in the past, and has not tolerated them for various reasons. She prefers cardioversion at this time. We discussed the risk and benefits of procedural sedation mostly, as well as cardioversion which should be safe in her having been anticoagulated for over 6 months. She is comfortable with that explanation. We did do cardioversion here, however even after shocking her 4 times it was unsuccessful. She tolerated the procedure well, there were no complications other than the fact that it did not convert her to sinus rhythm. She was given another 50 mg of Cardizem afterwards, since after the procedure she became more tachycardic. She slowed down to the 80s again, she was still symptomatic with regards to the palpitations but no other symptoms. I discussed with cardiology Dr. Loo, he advised admitting the patient for further evaluat ion and treatment, however the patient declines and does not want to stay. She does not have any dangerous symptoms right now and she is anticoagulated, low risk for stroke, so I think she is fine to follow-up with her bacon slicer if she wants to, she see Dr. lAonso as an outpatient as well as an EP doctor at [facility]. Rhythm Strip Rhythm Strip: A-fib Rate: 85 Ectopy: None EKG Initial EKG: Attestation: I personally reviewed and interpreted this EKG as follows: Interpretation: No Acute Injury Pattern and Atrial Flutter (With variable conduction) Procedures Procedural Sedation 1 (Initial Baseline): Consent Signed: Yes Any Problems With Anesthesia: No You/Your family experience fever (hyperthermia) w/anesthesia: No Sedation medication: Etomidate Dose: 7.5 Route: IV Total Moderate Sedation Units: 10 Mallampati Score: Class II ASA Classification: I Comment:: On monitor, 2 L of oxygen, end-tidal CO2 monitoring, IV fluids going throughout procedure. No complications, recovered uneventfully. Other Procedures Procedure(s): Electrocardioversion: Under procedural sedation and after pretreatment with fentanyl 25 mcg, pads anterior-posterior, performed synchronized cardioversion that was unsuccessful. It was attempted 4 times in total under the same procedural sedation procedure, 200 J, 250 J, 300 J, 300 J all biphasic. Discharge Plan Triage Chief Complaint: Palpitations ED Provider: Landon Hairston Dx/Rx/DC Orders Clinical Impression: Atrial fibrillation Instructions: ED AFIB Prescriptions: No Action thyroid (pork) [[place] Thyroid] 60 mg tablet 60 mg PO DAILY diltiazem HCl 120 mg capsule,extended release 24hr 120 mg PO BID Qty: 180 3RF Eliquis 5 mg tablet 5 mg PO BID Qty: 180 3RF metoprolol succinate 25 mg tablet extended release 24 hr 12.5 mg PO BID Qty: 90 3RF albuterol sulfate [ProAir HFA] 90 mcg/actuation HFA aerosol inhaler 1 - 2 puff INHALATION Q4H PRN (Reason: shortness of breath/wheezing) metformin 500 mg tablet 1,000 mg PO DAILY fluticasone propion-salmeterol [Advair Diskus] 250-50 mcg/dose blister with device 1 inh INHALATION BID PRN (Reason: Shortness Of Breath Or Wheezing) Primary Care Provider: Tere Muro Referrals: Tere Muro MD [Primary Care Provider] - Arnold Alonso MD [STAFF PHYSICIAN] - As soon as possible (and/or your EP bacon slicer) Disposition Disposition: Home, Self Care
[2021-11-07] MEDS: dilTIAZem 25 MG/5 ML Vial 20 MG IV BOLUS (02:01)
[2021-11-07] MEDS: fentaNYL 100 MCG/2 ML Ampul 25 MCG IV (04:21)
[2021-11-07] MEDS: Etomidate 20 MG/10 ML Vial 7.5 MG IV (04:25)
[2021-11-07] MEDS: dilTIAZem 25 MG/5 ML Vial 15 MG IV BOLUS (04:40)
== END 2021-11-07 05:28 | disposition home or self-care (01) ==
PROVIDERS: Emergency Provider Emergency Medicine; PCP Family Medicine; Visit Provider Emergency Medicine
DX: I48.91 Unspecified atrial fibrillation (principal); E11.9 Type 2 diabetes mellitus without complications; Z87.891 Personal history of nicotine dependence; R00.2 Palpitations; E03.9 Hypothyroidism, unspecified; I10 Essential (primary) hypertension; Z85.3 Personal history of malignant neoplasm of breast
CPT/HCPCS: 92960; 93005; 99283; J7030; A4216

== ENCOUNTER 2021-11-27 21:19 | Emergency (ER) | payer OTHER, SELFPAY | END 2021-11-27 21:23 | disposition left against medical advice (07) | LOC: ED 21:29 | PROVIDERS: PCP Family Medicine | DX: R00.2 Palpitations (principal) ==

== ENCOUNTER 2021-12-14 12:20 | Emergency (ER) | payer OTHER, SELFPAY ==
[2021-12-14] VITALS (7 sets, daily range): BP systolic 119–148; BP diastolic 66–95; PULSE 68–119; RESP 11–63; TEMP 36.2–36.7; O2SAT 97–99; BMI 21.6
--- NOTE | 2021-12-14 12:41 | EKG12_ITS ---
Test Reason : palp Blood Pressure : / mmHG Vent. Rate : 101 BPM Atrial Rate : 000 BPM P-R Int : 000 ms QRS Dur : 070 ms QT Int : 354 ms P-R-T Axes : 000 071 -58 degrees QTc Int : 459 ms Atrial fibrillation with rapid ventricular response Septal infarct , age undetermined ST & T wave abnormality, consider inferior ischemia Abnormal ECG Confirmed by JOHN CORNELIUS, MERRILL ([id number]), film and video editor SRAVAN CASEY ([id number]) on 12/15/2021 1:59:26 PM Referred By: Confirmed By:MERRILL LOPEZ MD
--- NOTE | 2021-12-14 12:41 | RAD_ITS ---
STUDY: X-RAY CHEST REASON FOR EXAM: Female, 61 years old. Chest pain TECHNIQUE: Single AP portable view of the chest. COMPARISON: 04/17/2021. FINDINGS: The lungs are clear and expanded. Surgical clips in the left lower chest. There is no demonstrated pleural abnormality. Normal size heart. Normal mediastinum and mario. Normal visualized pulmonary arteries. Normal visualized aortic arch and descending thoracic aorta. Normal visualized thoracic spine. Normal visualized ribs, clavicles, and shoulders. There is no demonstrated abnormality of the visualized soft tissue structures of the upper abdomen. RAD/Chest 1 View (Portable) IMPRESSION: No active pulmonary disease. Electronically Signed: George Luong MD at 13:43 EDT ,
--- NOTE | 2021-12-14 12:43 | EX.ED.DYSGE1 ---
HPI History of Present Illness Chief Complaint: Palpitations Informant: patient Onset/Context/Timing Onset: Yesterday Narrative Narrative: Patient presents secondary to A. fib. She was diagnosed with A. fib approximately 6 months ago. She is very symptomatic when she kicks into A. fib. She is currently on Cardizem and metoprolol for rate control along with Eliquis. She reports being in A. fib for approximately 24 hours. She was recently seen here and attempts at cardioversion were made x4 with no successful cardioversion. Patient states that she went home and later that night spontaneously converted. She is scheduled for a cardiac ablation later this month. [facility] Medical History Atrial fibrillation History of left heart catheterization (LHC) (~04/22/13) HTN (hypertension) HX: breast cancer Hypothyroidism SVT (supraventricular tachycardia) Tachycardia Type 2 diabetes mellitus Home Medications apixaban 5 mg tablet (Eliquis) 5 mg PO BID #180 tabs 05/30/21 [Rx Last Taken Unknown] diltiazem HCl 120 mg capsule,extended release 24 hr 120 mg PO BID #180 caps 05/30/21 [Rx Last Taken Unknown] metformin 500 mg tablet 1,000 mg PO DAILY 05/30/21 [History Last Taken Unknown] thyroid (pork) 60 mg tablet ([place] Thyroid) 60 mg PO DAILY 05/30/21 [History Last Taken Unknown] levalbuterol tartrate 45 mcg/actuation aerosol inhaler 45 mcg inhalation PRN PRN Shortness Of Breath 12/14/21 [History Last Taken Unknown] metoprolol succinate 25 mg tablet,extended release 24 hr 50 mg PO BID 12/14/21 [History Last Taken Unknown] Allergy/AdvReac Type Severity Reaction Status Date / Time cyclobenzaprine Allergy Severe dyspnea Verified 12/14/21 12:38 Sulfa (Sulfonamide Allergy Severe hives Verified 12/14/21 12:38 Antibiotics) Family History Mother Diabetes Myocardial infarction CVA (cerebral vascular accident) Father CVA (cerebral vascular accident) Surgical History History of breast reconstruction History of total mastectomy of left breast Hx of lumpectomy Social History Smoking Status: Former smoker alcohol intake: never substance use type: does not use caffeine: Yes Type: tea Number of servings: 1 ROS ROS ED Constitutional Constitutional ED: Denies chills or fever(s) Eyes Eyes: Denies change in vision or discharge from eye(s) ENT ENT ED: Denies discharge from eye(s), rhinorrhea or sore throat Cardiovascular Cardiovascular: Reports palpitations; Denies chest pain Respiratory/Chest Respiratory/Chest: Denies cough or dyspnea Gastrointestinal Gastrointestinal: Denies abdominal pain, diarrhea, nausea or vomiting Genitourinary Genitourinary ED: Denies difficulty urinating or dysuria Musculoskeletal Musculoskeletal: Denies back pain or extremity pain Integumentary Denies Abrasions or rash Neurologic Neurologic: Denies headache(s) or weakness Psychiatric Psychiatric: Denies anxiety or depression Endocrine Endocrinology: Denies polydipsia or polyuria Allergic/Immunologic Allergic/Immunologic ED: Denies lip swelling or urticaria EXAM Physical Exam Const Vital Signs: 12/14/21 12:21 12/14/21 12:36 12/14/21 13:06 Temperature 97.1 F L Temperature Source Temporal Pulse Rate 98 68 Respiratory Rate 16 17 Respiratory Effort Normal Non-Labored Respiratory Pattern Normal Blood Pressure 119/93 H 122/70 H Blood Pressure Mean 101 87 Pulse Ox 99 97 Oxygen Delivery Method Room Air Room Air 12/14/21 12:45 12/14/21 14:55 12/14/21 16:21 Temperature 98.0 F Temperature Source Temporal Pulse Rate 97 88 119 H Respiratory Rate 20 H 19 H 18 Respiratory Effort Respiratory Pattern Blood Pressure 126/66 H 144/81 H 143/95 H Blood Pressure Mean 86 102 111 Pulse Ox 97 99 98 Oxygen Delivery Method Room Air Room Air 12/14/21 16:42 Temperature Temperature Source Pulse Rate 91 Respiratory Rate 11 L Respiratory Effort Respiratory Pattern Blood Pressure 148/87 H Blood Pressure Mean 107 Pulse Ox 98 Oxygen Delivery Method Room Air Positive well nourished and well developed General Appearance ED: well developed HEENT Reports normocephalic and head/scalp atraumatic Eyes PERRL and EOMs intact bilaterally Neck supple Chest Wall inspection of chest normal and palpation of chest normal Resp normal respiratory effort and clear to auscultation bilaterally Cardio Rhythm: abnormal rhythm irregularly irregular (Heart rate between 95 and 130 during the time of my exam.) GI non-tender Auscultation: hypoactive bowel sounds Palpation: soft Extremity normal to inspection Neuro oriented x3 and no sensory deficits noted Sensorium / Orientation: alert Motor Exam: strength 5/5 throughout Psych mental status grossly normal Skin no rashes or lesions noted MDM MDM MDM Narrative Medical decision making narrative: EKG and chest x-ray obtained. Lab work ordered. Lab Data Labs: Laboratory Results - last 24 hr 12/14/21 12/14/21 12:29 12:29 WBC 5.8 RBC 4.79 Hgb 15.4 H Hct 46.5 MCV 97.1 MCH 32.2 H MCHC 33.1 RDW Std Deviation 42.5 RDW Coeff of Debbie 11.8 Plt Count 254 MPV 10.9 Immature Gran % (Auto) 0.200 Neut % (Auto) 60.0 Lymph % (Auto) 27.2 [place] % (Auto) 9.6 Eos % (Auto) 2.1 Baso % (Auto) 0.9 Absolute Neuts (auto) 3.5 Absolute Lymphs (auto) 1.58 Nucleated RBC % 0 Sodium 140 Potassium 4.3 Chloride 106 Carbon Dioxide 31.0 Anion Gap 3 L BUN 20 H Creatinine 0.70 Estim Creat Clear Calc 74.98 Est GFR (MDRD) Af Amer 109 Est GFR (MDRD) Non-Af 90 BUN/Creatinine Ratio 28.6 H Glucose 144 H Calcium 9.4 Magnesium 2.4 Radiography Chest X-Ray - ED: 1 View, Normal, Heart, Lungs and Mediastinum Diagnostic Testing: Clinical Impression(s) from Imaging Studies Chest X-Ray 12/14/21 12:41 IMPRESSION: No active pulmonary disease. Electronically Signed: George Luong MD at 13:43 EDT , EKG Initial EKG: Attestation: I personally reviewed and interpreted this EKG as follows: Interpretation: Atrial Fibrillation (Atrial fibrillation at 101. No acute ischemia.) Treatment and Re-Evaluation Narrative: Patient was initially given a dose of IV Cardizem here. She remained in atrial fibrillation. Lab work is unremarkable including normal potassium and magnesium. Chest x-ray is normal. Patient was due for her normal p.o. dose of Cardizem which she took and we gave her an additional 5 mg of IV metoprolol. At this time heart rate is controlled but she does remain in atrial fibrillation. Last time patient was in the emergency room cardioversion was attempted but unsuccessful after 4 shocks. She states she woke up before the last shock and really does not want to be cardioverted again if it can be avoided. I did speak with the patient's stereotyper helper, Dr. Alonso. He did recommend increasing her metoprolol from 50 twice daily to 100 twice daily to help control her rate further. Patient is comfortable with this plan. Discharge Plan Triage Chief Complaint: Palpitations ED Provider: Kaylyn Huertas Dx/Rx/DC Orders Clinical Impression: A-fib Instructions: ED AFIB Prescriptions: No Action thyroid (pork) [[place] Thyroid] 60 mg tablet 60 mg PO DAILY diltiazem HCl 120 mg capsule,extended release 24hr 120 mg PO BID Qty: 180 3RF Eliquis 5 mg tablet 5 mg PO BID Qty: 180 3RF metformin 500 mg tablet 1,000 mg PO DAILY levalbuterol tartrate 45 mcg/actuation HFA aerosol inhaler 45 mcg INHALATION PRN PRN (Reason: Shortness Of Breath) metoprolol succinate 25 mg tablet extended release 24 hr 50 mg PO BID Primary Care Provider: Tere Muro Referrals: Tere Muro MD [Primary Care Provider] - Arnold Alonso MD [Med Staff - Active Staff] - As Needed Disposition Disposition: Home, Self Care
[2021-12-14] MEDS: dilTIAZem 25 MG/5 ML Vial 10 MG IV BOLUS (12:52)
[2021-12-14 12:53] LABS: Absolute Lymphocyte Count 1.58 X10^3/uL (0.83-4.51); Absolute Neutrophil Count 3.5 X10^3/uL (2.0-7.7); Basophil# 0.05 X10^3/uL; Basophil% 0.9 % (0-1); Eosinophil# 0.12 X10^3/uL; Eosinophils% 2.1 % (0-5); Hematocrit 46.5 % (37-47); Hemoglobin 15.4 g/dL (12.0-15.0); Lymphocyte # 1.58 X10^3/ul (0.83-4.51); Lymphocyte % 27.2 % (19-41); Mean Corp Hgb Conc 33.1 g/dL (32-36); Mean Corpuscular Hgb 32.2 pg (27.0-32.0); Mean Corpuscular Volume 97.1 fL (81-99); Mean Platelet Vol. 10.9 fl (6.2-12.0); Monocyte# 0.56 X10^3/uL; Monocyte% 9.6 % (0-10); NRBC Flagged by Analyzer 0 % (0-5); Neutrophil # 3.49 X10^3/uL (2.7-7.7); Platelet Count 254 K/mm3 (150-450); RBC Distribution Width CV 11.8 % (11.6-14.6); RBC Distribution Width SD 42.5 fl (35.1-43.9); Red Blood Count 4.79 M/mm3 (4.2-5.4); White Blood Count 5.8 K/mm3 (4.4-11.0)
[2021-12-14] MEDS: 0.9% Normal Saline 1,000 ML 150 ML IV (12:53)
[2021-12-14 13:06] LABS: Anion Gap 3 (5-15); BUN 20 mg/dL (7-18); BUN/Creat Ratio 28.6 RATIO (10-20); Calcium,Total 9.4 mg/dL (8.5-10.1); Chloride 106 mmol/L (98-107); EST Glomerular Filtration Rate 90 mL/min (>60); Est Glom Filt Rate - Afr Amer 109 mL/min (>60); Estimated Creatinine Clearance 74.98 ml/min; Glucose 144 mg/dL (74-106); Magnesium 2.4 mg/dL (1.6-2.6); Potassium 4.3 mmol/L (3.5-5.1); Sodium Level 140 mmol/L (136-145)
[2021-12-14] MEDS: 0.9% Normal Saline 1,000 ML 999 ML IV (14:05)
--- NOTE | 2021-12-14 16:08 | ED.RN ---
WITH ASSISTANCE OF DR. HANNA. PT TOOK HOME DOSE OF CARDIZEM DIRECTED BY DR. HANNA.
[2021-12-14] MEDS: Metoprolol Tartrate 5 MG/5 ML Vial IV (16:27)
== END 2021-12-14 17:44 | disposition home or self-care (01) ==
PROVIDERS: Emergency Provider Emergency Medicine; PCP Family Medicine; Visit Provider Emergency Medicine
DX: I48.91 Unspecified atrial fibrillation (principal); E11.9 Type 2 diabetes mellitus without complications; Z87.891 Personal history of nicotine dependence; E03.9 Hypothyroidism, unspecified; I10 Essential (primary) hypertension; Z85.3 Personal history of malignant neoplasm of breast
CPT/HCPCS: 71045; 80048; 83735; 85025; 93005; 99284; J7030; A4216

== ENCOUNTER 2023-09-28 02:01 | Emergency (ER) | payer OTHER, SELFPAY ==
[2023-09-28 02:02] VITALS: BP 219/92; PULSE 60; RESP 16; TEMP 36.1; O2SAT 98; BMI 22.2
--- NOTE | 2023-09-28 02:13 | EKG12_ITS ---
Test Reason : CP Blood Pressure : / mmHG Vent. Rate : 062 BPM Atrial Rate : 062 BPM P-R Int : 170 ms QRS Dur : 086 ms QT Int : 418 ms P-R-T Axes : 088 051 044 degrees QTc Int : 424 ms Normal sinus rhythm Nonspecific ST and T wave abnormality Abnormal ECG Confirmed by MAXIMILIANO CORNELIUS, TALISHA ([id number]), editor news SRAVAN CASEY ([id number]) on 09/30/2023 6:20:08 AM Referred By: Confirmed By:BINH VIERA MD
--- NOTE | 2023-09-28 02:13 | RAD_ITS ---
INDICATION: chest pain EXAMINATION/TECHNIQUE: X-RAY - XR Chest 1 View COMPARISON: 12/14/2021 chest radiograph Findings: Single frontal view of the chest. LUNG PARENCHYMA: No acute focal airspace disease or mass lesion. PLEURA: No pleural effusion. No pneumothorax. HEART/GREAT VESSELS: Cardiomediastinal silhouette is unremarkable. BONES: Osseous structures are unremarkable for age. RAD/Chest 1 View (Portable) IMPRESSION: Chest with no acute disease. Electronically Signed: Chadd Godinez MD at 2:47 EDT ,
--- NOTE | 2023-09-28 02:14 | EDS_ITS ---
HPI History of Present Illness Chief Complaint: Hypertension Detail of Chief Complaint: Acute on chronic hypertension. Informant: patient Onset/Context/Timing Onset: Today Timing: Intermittent Narrative Narrative: 62-year-old female has a history of hypertension, A-fib, prior cardiac ablation diabetes and is currently on Eliquis. She is also on metoprolol for hype rtension. Recently has had some palpitations. Elevated blood pressure today. Blood pressure was 150/83. She decided to have it evaluated. She may have had some very mild nonexertional chest pain. She has had no recent exertional chest pain or exertional dyspnea. Prior similar symptoms: Yes Recent Illness/Hospitalization: No PFSH PFSH Medical History HTN (hypertension) History of left heart catheterization (LHC) (~04/22/13) Hypothyroidism SVT (supraventricular tachycardia) Type 2 diabetes mellitus Atrial fibrillation HX: breast cancer Tachycardia Home Medications ?Medication ?Instructions ?Recorded ?Last Taken ?Type apixaban 5 mg tablet (Eliquis) 5 mg PO BID #180 tabs 05/30/21 Unknown Rx metformin 500 mg tablet 1,000 mg PO DAILY 05/30/21 Unknown History thyroid (pork) 60 mg tablet 60 mg PO DAILY 05/30/21 Unknown History ([place] Thyroid) levalbuterol tartrate 45 45 mcg inhalation PRN PRN 12/14/21 Unknown History mcg/actuation aerosol inhaler Shortness Of Breath metoprolol succinate 25 mg 50 mg PO BID 12/14/21 Unknown History tablet,extended release 24 hr Allergy/AdvReac Type Severity Reaction Status Date / Time cyclobenzaprine Allergy Severe dyspnea Verified 09/28/23 02:02 Sulfa (Sulfonamide Allergy Severe hives Verified 09/28/23 02:02 Antibiotics) adhesive tape Allergy Rash Verified 09/28/23 02:02 Family History Mother Diabetes Myocardial infarction CVA (cerebral vascular accident) Father CVA (cerebral vascular accident) Surgical History History of breast reconstruction History of total mastectomy of left breast Hx of lumpectomy Social History Smoking Status: Former smoker alcohol intake: never substance use type: does not use caffeine: Yes Type: tea Number of servings: 1 ROS ROS ED ROS Narrative Denies recent illness. Review of Systems ROS Unobtainable: Denies due to encephalopathy Constitutional Constitutional ED: Denies anorexia Eyes Eyes: Reports none ENT ENT ED: Reports none Cardiovascular Cardiovascular: Reports hypertension and palpitations Respiratory/Chest Respiratory/Chest: Reports none Gastrointestinal Gastrointestinal: Reports none Genitourinary Genitourinary ED: Reports none Musculoskeletal Musculoskeletal: Reports none Integumentary Reports none Psychiatric Psychiatric: Reports none Endocrine Endocrinology: Reports none Hematologic/Lymphatic Hematologic/Lymphatic: Reports none Allergic/Immunologic Allergic/Immunologic ED: Reports none EXAM Physical Exam Narrative Exam Narrative: Well-appearing 62-year-old female. Vital signs are stable afebrile except for initial blood pressure 219/92. Pulse ox 98% on room air no hypoxia. H EENT exam unremarkable. Neck nontender. No JVD. Lungs clear to auscultation bilaterally. Heart regular rhythm rate about 60 no murmur. Chest wall and ribs nontender. Abdomen soft nontender. Moving all 4 extremities. Calves are nontender without edema or cords. Equal symmetrical radial pulses. Normal sales operations strength. He is awake alert. No focal motor deficits. Benign exam. Const Vital Signs: 09/28/23 02:02 09/28/23 02:16 Temperature 97 F L Temperature Source Temporal Pulse Rate 60 Respiratory Rate 16 Blood Pressure 219/92 H Blood Pressure Mean 134 Pulse Ox 98 Oxygen Delivery Method Room Air Room Air Positive well nourished, well developed, alert, oriented x3, no apparent distress, average body habitus, no limitations and healthy appearing; Negative for obese, cachectic, contractures or unkempt General Appearance ED: active, cooperative, comfortable, well kempt and well developed; Negative for unkempt, cachectic or contractures Orientation / Consciousness: awake Nutritional Appearance: Negative for cachectic or obese HEENT Reports normocephalic and head/scalp atraumatic normocephalic Face and Sinus: normal facial exam Nose: external nose normal Eyes PERRL, EOMs intact bilaterally, conjunctivae normal and no scleral icterus General Eye ED: Yes normal appearance of both eyes Neck full ROM, no lymphadenopathy, supple, no meningeal signs and no JVD Lymph Lymphatic: no lymphadenopathy noted and no lymphedema noted Chest Wall inspection of chest normal and palpation of chest normal Resp normal respiratory effort, normal air movement, no retractions, no use of accessory muscles and clear to auscultation bilaterally Cardio regular rate, regular rhythm, S1 normal heart sound, S2 normal heart sound, no murmurs, no rub, no gallops, no clicks and no JVD; Negative for diaphoretic GI normal to inspection, nondistended, normoactive bowel sounds, soft to palpation, non-tender, non-distended, no masses and no bruits Back/Spine no CVA tenderness, normal ROM and normal to inspection Extremity normal to inspection, full ROM, no joint enlargement, no clubbing, cyanosis or edema, no calf tenderness and no pedal edema Neuro oriented x3, CN's II-XII intact bilaterally, moves all extremities and no focal motor deficits Sensorium / Orientation: awake, alert, oriented to person, oriented to place and oriented to time; Negative for orientation impaired, confused, lethargic, somnolent or obtunded Speech: speech normal Motor Exam: strength 5/5 throughout Psych mental status grossly normal, thought process normal, cooperative, affect normal, speech normal and activity/motor behavior normal Appearance: grossly normal; Negative for unkempt Attitude: calm, engaged, No withdrawn, No bizarre, No uncooperative and No evasive Activity / Motor Behavior: appropriate eye contact Speech: normal speech Mood & Affect: euthymic mood Thought Process: normal thought process Skin no rashes or lesions noted, no wounds, skin turgor normal, no jaundice and no petechiae General Skin Exam: no breakdown Lesions: no lesions Rashes: no rashes Trauma: no lacerations or abrasions MDM MDM MDM Narrative Medical decision making narrative: 62-year-old female with palpitations acute on chronic hypertension. Undergo cardiac workup. Exam is benign. Currently her heart rates in the 60s. Will see if her blood pressure comes down on its own or what to treat with some medication. Repeat exam at 3:38 AM patient doing well. We discussed all of her test results. Patient doing well. Current blood pressure is 176/92. She feels well. We discussed her blood pressure readings. She is in a log her blood pressures twice a day at home. Previously she was taken her metoprolol twice a day she cut it down to once a day. She is then go back to taking half a pill twice a day and follow-up with her primary care physician Dr. Tere Muro to have her blood pressures reevaluated. Lab Data Attestation: I reviewed the patient's lab results. Lab results narrative: CBC normal. White count of 5. H&H of 13 and 41. Platelets 226. Electrolytes unremarkable. Gap 7. BUN and creatinine are normal at 6 and 0.5. Glucose 119. Troponin 6. Labs: Laboratory Results - last 24 hr 09/28/23 02:10 WBC 5.2 RBC 4.41 Hgb 13.4 Hct 41.4 MCV 93.9 MCH 30.4 MCHC 32.4 RDW Std Deviation 41.2 RDW Coeff of Debbie 11.9 Plt Count 226 MPV 10.2 Immature Gran % (Auto) 0.000 Neut % (Auto) 31.2 L Lymph % (Auto) 53.1 H [place] % (Auto) 11.2 H Eos % (Auto) 3.3 Baso % (Auto) 1.2 H Absolute Neuts (auto) 1.6 L Absolute Lymphs (auto) 2.76 Nucleated RBC % 0 Sodium 141 Potassium 4.3 Chloride 108 H Carbon Dioxide 26.0 Anion Gap 7 BUN 6 L Creatinine 0.57 Estim Creat Clear Calc 90.90 Est GFR (MDRD) Af Amer 139 Est GFR (MDRD) Non-Af 115 BUN/Creatinine Ratio 10.6 Glucose 119 H Calcium 9.6 Troponin I High Sens 6 Radiography Chest X-Ray - ED: 1 View, Read by ED Physician, Read by Radiologist, Normal, Heart, Lungs, Mediastinum, Bony Structures, No Acute Disease and Chronic Changes Diagnostic Testing: Clinical Impression(s) from Imaging Studies Chest X-Ray 09/28/23 02:13 IMPRESSION: Chest with no acute disease. Electronically Signed: Chadd Godinez MD at 2:47 EDT , Chest x-ray, portable, single view interpreted both by myself and the radiologist. Shows no acute abnormality. Normal cardiac silhouette. Normal lung orozco. Normal mediastinum. Rhythm Strip Rhythm Strip: Sinus Rhythm Rate: 62 Ectopy: None EKG Initial EKG: Attestation: I personally reviewed and interpreted this EKG as follows: Interpretation: Sinus Rhythm and No Acute Injury Pattern Comments: Normal sinus rhythm rate of 62 no acute signs of [place]. No ST deanna vation. No dysrhythmia. Discharge Plan Triage Chief Complaint: Hypertension ED Provider: José Wheeler Dx/Rx/DC Orders Clinical Impression: Hypertension, History of atrial fibrillation, History of diabetes mellitus, Chronic anticoagulation Instructions: ED Hypertension, Established Prescriptions: No Action thyroid (pork) [[place] Thyroid] 60 mg tablet 60 mg PO DAILY Eliquis 5 mg tablet 5 mg PO BID Qty: 180 3RF metformin 500 mg tablet 1,000 mg PO DAILY levalbuterol tartrate 45 mcg/actuation HFA aerosol inhaler 45 mcg INHALATION PRN PRN (Reason: Shortness Of Breath) metoprolol succinate 25 mg tablet extended release 24 hr 12.5 mg PO BID Primary Care Provider: Tere Muro Referrals: Tere Muro MD [Primary Care Provider] - 1-2 Weeks Activity Restrictions/Additional Instructions: Log your blood pressure twice daily usually in the morning after breakfast in the evening. Make sure you are calm and relaxed when you take it. When you follow-up your primary care physician Dr. Tere Muro show those to her so she can decide how she wants to adjust your blood pressure medications if needed. I would go back to take in half of your metoprolol twice a day. And see how that affects your blood pressure. If your blood pressure is running below 100 or you are feeling slow or sluggish or lightheaded then I would back off of that. Your labs, EKG and chest x-ray did today were all good. Print Language: [place] Disposition Disposition: Home, Self Care
[2023-09-28 02:20] LABS: Absolute Lymphocyte Count 2.76 X10^3/uL (0.83-4.51); Absolute Neutrophil Count 1.6 X10^3/uL (2.0-7.7); Basophil# 0.06 X10^3/uL; Basophil% 1.2 % (0-1); Eosinophil# 0.17 X10^3/uL; Eosinophils% 3.3 % (0-5); Hematocrit 41.4 % (37-47); Hemoglobin 13.4 g/dL (12.0-15.0); Lymphocyte # 2.76 X10^3/ul (0.83-4.51); Lymphocyte % 53.1 % (19-41); Mean Corp Hgb Conc 32.4 g/dL (32-36); Mean Corpuscular Hgb 30.4 pg (27.0-32.0); Mean Corpuscular Volume 93.9 fL (81-99); Mean Platelet Vol. 10.2 fl (6.2-12.0); Monocyte# 0.58 X10^3/uL; Monocyte% 11.2 % (0-10); NRBC Flagged by Analyzer 0 % (0-5); Neutrophil # 1.63 X10^3/uL (2.7-7.7); Neutrophil % 31.2 % (47-70); Platelet Count 226 K/mm3 (150-450); RBC Distribution Width CV 11.9 % (11.6-14.6); RBC Distribution Width SD 41.2 fl (35.1-43.9); Red Blood Count 4.41 M/mm3 (4.2-5.4); White Blood Count 5.2 K/mm3 (4.4-11.0)
[2023-09-28 02:39] LABS: Anion Gap 7 (5-15); BUN 6 mg/dL (7-18); BUN/Creat Ratio 10.6 RATIO (10-20); Calcium,Total 9.6 mg/dL (8.5-10.1); Chloride 108 mmol/L (98-107); Creatinine, Serum 0.57 mg/dL (0.55-1.02); EST Glomerular Filtration Rate 115 mL/min (>60); Est Glom Filt Rate - Afr Amer 139 mL/min (>60); Glucose 119 mg/dL (74-106); Potassium 4.3 mmol/L (3.5-5.1); Sodium Level 141 mmol/L (136-145); Troponin-I HS 6 pg/mL (3.0-54.0)
[2023-09-28 03:51] VITALS: BP 184/90; PULSE 57; RESP 17; TEMP 36; O2SAT 100
== END 2023-09-28 03:53 | disposition home or self-care (01) ==
PROVIDERS: Emergency Provider Emergency Medicine; PCP Family Medicine; Visit Provider Emergency Medicine
DX: I10 Essential (primary) hypertension (principal); I48.91 Unspecified atrial fibrillation; E11.9 Type 2 diabetes mellitus without complications; Z87.891 Personal history of nicotine dependence; R00.0 Tachycardia, unspecified; Z79.01 Long term (current) use of anticoagulants; Z79.899 Other long term (current) drug therapy
CPT/HCPCS: 71045; 80048; 84484; 85025; 93005; 99283

== ENCOUNTER → 2023-10-05 | Outpatient (CLI) | payer OTHER, SELFPAY ==
[2023-10-05 19:03] LABS: AST(SGOT) 16 U/L (15-37); Alanine Aminotransfer ALT/SGPT 17 U/L (13-56); Alkaline Phosphatase 80 U/L (45-117); Bilirubin, Direct 0.11 mg/dL (0.00-0.30); Cholesterol 143 mg/dL (200); High Density Lipoprotein 52 mg/dL; T4 Total, Thyroxin 6.8 ug/dL (4.8-13.9); Thyroid Stim Hormone (TSH) 2.21 uIU/mL (0.358-3.74); Triglycerides 58 mg/dL; Very Low Density Lipoprotein 12 mg/dL (5-40)
[2023-10-05 19:05] LABS: Hemoglobin A1c 5.6 % (3.8-5.6)
== END | disposition home or self-care (01) ==
LOC: MFPLAB 14:33
PROVIDERS: PCP Family Medicine; Visit Provider Family Medicine
DX: E11.59 Type 2 diabetes mellitus with other circulatory complications (principal); E03.9 Hypothyroidism, unspecified
CPT/HCPCS: 36415; 80061; 80076; 83036; 84436; 84443

== ENCOUNTER → 2024-10-16 | Outpatient (CLI) | payer BC, SELFPAY ==
--- OUTSIDE RECORDS SUMMARY | 2024-10-16 23:31 | XMS RPT_ITS | CCD ---
Author Organization [facility] ion Partnership [facility] Care Team Providers [employer] Name Role Phone Tere Muro Primary Care Provider [phone] Tere Muro Primary Care Provider Ana Tillman MD Unavailable Tere Muro Primary Care Provider Ana Tillman MD Unavailable Tere Muro Primary Care Provider Ana Tillman MD Unavailable Tere Muro Primary Care Provider Ana Tillman MD Unavailable Tere Muro Primary Care Provider Jolliff, Tere S Primary Care Unavailable José Wheeler Attending Unavailable Jolliff, Tere S Attending Unavailable Jolliff, Tere S Primary Care Unavailable Jolliff, Tere S Attending Unavailable Jokristen, Tere S Primary Care Unavailable ANA TILLMAN Referring Unavailable TERE MURO Primary Care Unavailable ANA TILLMAN Referring Unavailable ANA TILLMAN Attending Unavailable ETRE MURO LUPE Primary Care Unavailable Allergies Allergy Classification Reported Allergen(s) Allergy Type Date of Onset Reaction(s) Facility Adhesive Tape (1 source) Adhesive Tape Substance Allergy 08-01-19 10 Rash [facility] Work Phone: cyclobenzaprine (1 source) cyclobenzaprine Drug Allergy 05-07-19 10 Shortness of Breath [facility] levothyroxine (1 source) levothyroxine Drug Allergy 08-08-19 16 Hives [facility] Work Phone: (20 sources) Adhesive Tape; Translations: [ADHESIVE TAPE (ROSINS)] Propensity to adverse reactions 08-01-19 10 Rash [facility] Work Phone: (20 sources) cyclobenzaprine; Translations: [CYCLOBENZAPRINE HCL] Drug Allergy 05-07-19 10 Shortness of Breath [facility] (20 sources) levothyroxine; Translations: [LEVOTHYROXINE] Drug Allergy 08-08-19 16 [facility] Work Phone: (4 sources) cyclobenzaprine Drug Allergy 10-21-19 22 dyspnea [facility] Work Phone: (5 sources) Sulfonamides (Antibiotic); Translations: [Sulfa (Sulfonamide Antibiotics)] Allergy to substance 10-21-19 22 [facility] (1 source) Adhesive Tape Drug allergy (disorder) 09-28-19 24 [facility] (1 source) cyclobenzaprine Drug Allergy 09-28-19 24 [facility] Repository Medications Current Medications Medication Drug Class(es) Dates Sig (Normalized) Sig (Original) [id number] 200 actuat albuterol 0.09 mg/actuat metered dose inhaler (16 sources) beta2-Adrenergic Agonist Start: 04-15-2021 take 1 puff(s) by inhalation every four hours Albuterol Sulfate (Proair Hfa) 90 mcg/actuation HFA aerosol inhaler Active 1 - 2 PUFF INHALATION Q4H April 15, 2021 1:00am Start: 04-03-2009 End: 12-25-2021 take 1 puff(s) by inhalation once daily as needed for wheezing ALBUTEROL 90 MCG/ACTUATION AEROSOL INHALER Inhale one(1) - two(2) puffs four(4) times a day as needed for wheezing and shortness of breath. 0 04/03/2009 12/25/2021 Discontinued (Discontinued by Patient) Comment on above: Inhale one(1) - two( 2) puffs four(4) times a day as needed for wheezing and shortness of breath. apixaban 5 mg oral tablet (20 sources) Factor Xa Inhibitor Start: 1 End: 2 take 1 tablet by mouth twice daily Apixaban (Eliquis) 5 mg tablet Active 5 MG PO TWICE A DAY 180 May 30, 2021 3:00pm Comment on above: Take 5 mg by mouth t wice daily. cholecalciferol 0.025 mg chewable tablet (20 sources) Vitamin D Start: 2 take 3 tablets by mouth once daily Cholecalciferol, Vitamin D3, 25 mcg (1,000 unit) chew Take 3 tablets by mouth once daily. 0 05/22/2011 Active Comment on above: Take [address] [facility] once daily. 24 hr dilTIAZem hydrochloride 120 mg extended release oral capsule (20 sources) Calcium Channel Sloane Start: take 1 capsule by mouth once daily dilTIAZem CD (CARDIZEM CD) 120 mg 24 hr capsule Take 1 capsule by mouth once daily. 90 capsule 1 07/07/2024 Active Start: 05-30-2021 End: 03-31-2022 take 120 mg by mouth twice daily Diltiazem Hcl Active 120 MG PO TWICE A DAY 180 May 30, 2021 2:59pm Start: 04-17-2021 End: 05-30-2021 take 120 mg by mouth once daily Diltiazem Hcl Discontinued 120 MG PO DAILY April 17, 2021 1:00am May 30, 2021 2:07pm Comment on above: Take 120 mg by mouth once daily. Take 120 mg by mouth twice daily. iv contrast (will be provided with radiology test) (1 source) Start: 2021 End: 2021 inject 1 dose intravenously once iv contrast (will be provided with radiology test) Indications: Persistent atrial fibrillation (HCC) CT Pulm Vein - No IV access, insert saline lock prior to the sedation, infusion, injection for imaging exam. Discontinue saline lock post exam. If Pt. has a central line or IVAD, may access for administration according to line specific nursing protocol. Once exam is complete flush line and de-access according to line specific nursing protocol in the CT contrast administration guidelines link. 1 Each 0 11/07/2021 11/08/2021 Active Comment on above: CT Pulm Vein - No IV access, insert saline lock prior to the sedation, infusion, injection for imaging exam. Discontinue saline lock post exam. If Pt. has a central line or IVAD, may access for administration according to line specific nursing protocol. Once exam is complete flush line and de-access according to line specific nursing protocol in the CT contrast administration guidelines link. 200 actuat levalbuterol 0.045 mg/actuat metered dose inhaler (1 source) beta2-Adrenergic Agonist Start: 2021 Levalbuterol Tartrate Active 45 MCG INHALATION NEEDED December 14, 2021 12:00am LEVALBUTEROL TARTRATE INHALATION (20 sources) take 1-2 puff(s) by inhalation four times daily as needed LEVALBUTEROL TARTRATE INHALATION Inhale 1-2 Puffs as instructed four times daily as needed. Active take 1-2 puff(s) by inhalation four times daily as needed LEVALBUTEROL TARTRATE INHALATION Inhale 1-2 Puffs as instructed four times daily as needed. 0 Active Comment on above: Inhale 1-2 Puffs as instructed four times daily as needed. 24 hr metFORMIN hydrochloride 500 mg extended release oral tablet (20 sources) Biguanide Start: take 1 tablet by mouth twice daily metFORMIN ER (GLUCOPHAGE XR) 500 mg 24 hr tablet Take 500 mg by mouth twice daily. 07/18/2021 Active Start: 07-18-2021 take 1 tablet by emmett th once daily metFORMIN ER (GLUCOPHAGE XR) 500 mg 24 hr tablet Take 500 mg by mouth once daily. 0 07/18/2021 Active Start: 05-30-2021 take 1000 mg by mout h once daily Metformin Active 1000 MG PO DAILY May 30, 2021 2:06pm Start: 04-15-2021 End: 05-30-2021 take 500 mg by mouth once daily Metformin Discontinued 500 MG PO DAILY April 15, 2021 1:00am May 30, 2021 2:07pm Comment on above: Take 500 mg by mouth once daily. Take 500 mg by mouth twice daily. 24 hr metoprolol succinate 25 mg extended release oral tablet (20 sources) beta-Adrenergic Sloane Start: 03-30-2022 take 1 tablet by mouth twice daily metoprolol succinate ER (TOPROL XL) 25 mg 24 hr tablet Take 12.5 mg by mouth twice daily. 03/30/2022 Active Start: 12-14-2021 take 50 mg by mouth twice lisa y Metoprolol Succinate Active 50 MG PO TWICE A DAY December 14, 2021 12:45pm Start: 05-30-2021 End: 12-14-2021 take 12.5 mg by mouth twice daily Metoprolol Succinate Discontinued 12.5 MG PO TWICE A DAY 90 May 30, 2021 3:01pm December 14, 2021 12:45pm Start: 05-30-2021 End: 05-30-2021 take 0.5 tablet by mouth twice daily Metoprolol Succinate Discontinued 25 MG PO TWICE A DAY 1 May 30, 2021 2:58pm May 30, 2021 3:01pm 1/2 tablet by mouth twice daily Start: 05-30-2021 End: 05-30-2021 take 25 mg by mouth twice daily Metoprolol Succinate Discontinued 25 MG PO TWICE A DAY May 30, 2021 2:06pm May 30, 2021 3:00pm Start: 04-17-2021 End: 05-30-2021 take 50 mg by mouth twice daily Metoprolol Succinate Discontinued 50 MG PO TWICE A DAY 0 April 17, 2021 5:05pm May 30, 2021 2:07pm Start: 04-15-2021 End: 04-17-2021 take 25 mg by mouth twice daily Metoprolol Succinate Discontinued 25 MG PO TWICE A DAY April 15, 2021 1:00am April 17, 2021 5:05pm End: 03-12-2022 metoprolol succinate ER (TOP ROL XL) 50 mg 24 hr tablet Take by mouth twice daily. Taking 50-100 mg twice daily 0 03/12/2022 Discontinued (Clinical Decision) Comment on above: Take by mouth twice daily. Taking 50-100 mg twice daily Take 12.5 mg by mout h twice daily. multivitamins(DAILY MULTIVITAMIN TAB) (20 sources) Start: 01-02-2010 multivitamins(DAILY MULTIVITAMIN TAB) Take one(1) tablet daily. 0 01/02/2010 Active Comment on above: Take one(1) tablet d aily. perflutren lipid microspheres 1.3 mL in NaCl (PF) 0.9% 10 mL injection (DEFINITY) (20 sources) Start: 01-09-2022 End: 04-10-2023 perflutren lipid microspheres 1.3 mL in NaCl (PF) 0.9% 10 mL injection (DEFINITY) Start: 07-23-2021 End: 12-25-2021 perflutren lipid microsphere s 1.3 mL in NaCl (PF) 0.9% 10 mL injection (DEFINITY) Start: 07-23-2021 End: 10-22-2022 perflutren lipid microsphere s 1.3 mL in NaCl (PF) 0.9% 10 mL injection (DEFINITY) 125 ml sodium chloride 9 mg/ml prefilled syringe (20 sources) Start: 07-23-2021 End: 04-10-2023 sodium chloride 0.9 % (flush) 10 mL (BD POSIFLUSH) thyroid (jail) 60 mg oral tablet (20 sources) Start: 05-30-2021 take 1 tablet by mouth once daily Thyroid (Pork) (Savanna Thyroid) 60 mg tablet Active 60 MG PO DAILY May 30, 2021 1:00am Start: 04-15-2021 End: 05-30-2021 take 1 tablet by mouth once daily Thyroid (Pork) (Savanna Thyroid) 30 mg tablet Discontinued 60 MG PO DAILY April 15, 2021 1:00am May 30, 2021 2:07pm Start: 08-24-2016 End: 12-25-2021 take 1 tablet by mouth once daily TOOL DESIGNER THYROID 90 mg tab TAKE ONE TABLET BY MOUTH ONCE DAILY 90 tablet 0 08/24/2016 12/25/2021 Discontinued (Dosage adjustment) Comment on above: TAKE ONE TABLET BY M OUTH ONCE DAILY Take 60 mg by mouth once daily. Completed/Discontinued Medications Medication Drug Class(es) Dates Sig (Normalized) Sig (Original) amoxicillin 875 mg oral tablet (18 sources) Penicillin-class Antibacterial End: 03-31-2022 take 1 tablet by mouth twice daily amoxicillin (AMOXIL) 875 mg tablet Take 875 mg by mouth twice daily. 0 03/31/2022 Discontinued (Course of therapy completed) Comment on above: Take 875 mg by mouth twice daily. flecainide acetate 100 mg oral tablet (10 sources) Antiarrhythmic Start: 09-09-2021 End: 12-25-2021 take 1 tablet by mouth twice daily flecainide (TAMBOCOR) 100 mg tablet Take 1 tablet by mouth twice daily. 60 tablet 11 09/09/2021 12/25/2021 Discontinued (Discontinued by Patient) Comment on above: Take 1 tablet by emmett th twice daily. fluticasone / salmeterol (20 sources) Corticosteroid, beta2-Adrenergic Agonist Start: 03-31-2022 End: 12-16-2023 take 1 puff(s) by inhalation once daily fluticasone-salmet charley (ADVAIR DISKUS) 250-50 mcg/dose inhaler Inhale 1 Puff as instructed once daily. 0 03/31/2022 12/16/2023 Discontinued (Discontinued by Patient) Start: 03-31-2022 take 1 puff(s) by in halation once daily fluticasone-salmeterol (ADVAIR DISKUS) 250-50 mcg/dose inhaler Inhale 1 Puff as instructed once daily. 0 03/31/2022 Active Start: 05-30-2021 Fluticasone Pr opion-Salmeterol (Advair Diskus) 250-50 mcg/dose blister with device Active 1 INH INHALATION TWICE A DAY May 30, 2021 2:06pm Start: 04-18-2021 End: 05-30-2021 Fluticasone Propion-Salmeter ol (Advair Diskus) 250-50 mcg/dose Blister With Device Discontinued 1 INH INHALATION TWICE A DAY April 18, 2021 1:00am May 30, 2021 2:07pm End: 03-31-2022 take 1 puff(s) by inhalation twice daily fluticasone-salmeterol (ADVAIR DISKUS) 250-50 mcg/dose inhaler Inhale 1 Puff as instructed twice daily. 0 03/31/2022 Discontinued (Adjust Sig - Block E-Cancel) take 1 puff(s) by in halation twice daily fluticasone-salmeterol (ADVAIR DISKUS) 250-50 mcg/dose inhaler Inhale 1 Puff as instructed twice daily. 0 Active Comment on above: Inhale 1 Puff as ins tructed twice daily. Inhale 1 Puff as ins tructed once daily. pantoprazole 40 mg delayed release oral tablet (15 sources) Proton Pump Inhibitor Start: End: take 1 tablet by mouth once daily, then take 6 tablets by mouth in the morning pantoprazole DR (PROTONIX) 40 mg tablet Take 1 tablet by mouth DAILY (6 AM). 30 tablet 0 12/27/2021 03/31/2022 Discontinued (Course of therapy completed) Comment on above: Take 1 tablet by emmett th DAILY (6 AM). Problems Active Problems Problem Classification Problem Date Documented Date Episodic/Chronic Asthma (8 sources) Asthma; Translations: [Unspecified asthma, uncomplicated] Onset: 12-16-2023 12-16-2023 Chronic Cancer of breast (20 sources) Infiltrating lobular carcinoma of breast; Translations: [Malignant neoplasm of unspecified site of unspecified female breast] Onset: 04-18-2009 04-18-2009 Chronic Cardiac dysrhythmias (20 sources) Cardiac arrhythmia; Translations: [Cardiac arrhythmia, unspecified] Onset: 06-08-2012 06-08-2012 Chronic Diabetes mellitus with complications (1 source) Type 2 diabetes mellitus with other circulatory complications; Translations: [Type 2 diabetes mellitus with other circulatory complications] Onset: 10-06-2023 Chronic Diabetes mellitus without complication (8 sources) Type 2 diabetes mellitus; Translations: [Type 2 diabetes mellitus without complications] Onset: 12-16-2023 12-16-2023 Chronic Esophageal disorders (20 sources) Gastroesophageal reflux disease; Translations: [Gastro-esophageal reflux disease without esophagitis] Onset: 09-18-2009 09-18-2009 Chronic Essential hypertension (9 sources) Hypertensive disorder; Translations: [Essential (primary) hypertension] Onset: 10-07-2023 12-16-2023 Chronic Other aftercare (1 source) Long-term current use of anticoagulant; Translations: [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) use of anticoagulants] Episodic Thyroid disorders (20 sources) Hypothyroidism; Translations: [Hypothyroidism, unspecified] Onset: 08-08-2015 08-08-2015 Chronic Viral infection (4 sources) Disease caused by 2019-nCoV; Translations: [COVID-19] Episodic Past or Other Problems Problem Classification Problem Date Documented Date Episodic/Chronic Cardiac dysrhythmias (13 sources) Palpitations; Translations: [Palpitations] Onset: 12-16-2023 Episodic Residual codes; unclassified (8 sources) History of cardiac catheterization; Translations: [Other specified postprocedural states] Onset: 04-02-2013 12-16-2023 Episodic Results Test Name Value Interpretation Reference Range Facility [facility] 07-03-2024 [facility] Telephone (CARDMN) OLAMIDE MCGILL ([id number]) 1960 F Date Time Provider Department 07/03/24 ANA TILLMAN During your visit today, we recorded the following information about you: Yara Caba 07/03/2024 3:40 PM Signed July 03, 2024 Patient Contact Number: [phone] (home) [phone] (work) [phone] (cell) Patient last seen within the last year Yes Reason For Call: Medication Issue/Question:metoprol ol is affecting her asthma wondering if there is another med to take Physician:Ana Tillman MD, MPH Dia Vila RN 07/03/2024 4:13 PM Signed Contacted the patient. She reports has had had more wheezing. She believes it is related to asthma. Will review with Dr. Tillman. ENEIDA Balderrama Tracy, RN 07/06/2024 10:45 AM Signed Date: July 06, 2024 Time: 10:38 AM The following orders/tests have been written down, read back and confirmed as ordered by Ana Tillman MD,MPH . Per Dr. Tillman the patient should stop metoprolol and start diltiazem 120 mg daily. Contacted the patient and updated her. She has been having more episodes of palpitations. She will continue to monitor. Dia Vila RN Allergies As of Date: 07/03/2024 Noted Allergy Reaction ADHESIVE TAPE (ROSINS) 07/31/2009 2 - Rash Comments: Patient also had redness and itching from surgical EKG patch. FLEXERIL (CYCLOBENZAPRINE HCL) 05/07/2009 12 - Shortness of Breath LEVOXYL (LEVOTHYROXINE) 08/08/2015 4 - Hives Date Reviewed: 12/16/2023 Reviewed by: Scarlett Pang RN - Fully Assessed Reason for Visit: Medication Problem [65] Prescriptions as of 07/06/2024 - metoprolol succinate ER (TOPROL XL) 25 mg 24 hr tablet Take 12.5 mg by mouth twice daily. - LEVALBUTEROL TARTRATE INHALATION Inhale 1-2 Puffs as instructed four times daily as needed. - TOOL DESIGNER THYROID 60 mg Take 60 mg by mouth once daily. - metFORMIN ER (GLUCOPHAGE XR) 500 mg 24 hr tablet Take 500 mg by mouth twice daily. - apixaban (ELIQUIS) 5 mg tab(s) Take 5 mg by mouth twice daily. - Cholecalciferol, Vitamin D3, 25 mcg (1,000 unit) chew Take 3 tablets by mouth once daily. - multivitamins(DAILY MULTIVITAMIN TAB) Take one(1) tablet daily. Problem List As Of Date 07/03/2024 Noted Resolved Lobular Breast Cancer [C50.919] 04/18/2009 Malignant Neoplasm of Breast (Female), Unspecif*07/10/2009 GERD (Gastroesophageal Reflux Disease) [K21.9] 09/18/2009 Cardiac dysrhythmia, unspecified [I49.9] 06/08/2012 Hypothyroidism [E03.9] 08/08/2015 Asthma [J45.909] 12/16/2023 Atrial fibrillation (HCC) [I48.91] 12/16/2023 History of cardiac catheterization [Z98.890] 12/16/2023 Hypertension [I10] 10/07/2023 Palpitations [R00.2] 12/16/2023 Type 2 diabetes mellitus (HCC) [E11.9] 12/16/2023 Encounter Status:Closed by DIA VILA on 07/03/24 [facility] Kahlil 12-16-2023 CNOV Office Visit (CARDMN ) OLAMIDE MCGILL ([id number]) 1960 F Date Time Provider Department 12/16/23 9:15 AM ANA TILLMAN During your visit today, we recorded the following information about you: Pulse Blood pressure Weight Height 63/minute 172/68 56.2 kg 1.651 m Ana Tillman MD 12/16/2023 10:54 AM Signed [facility] Department of Cardiovascular Medicine SECTION OF CARDIAC PACING and ELECTROPHYSIOLOGY OUTPATIENT VISIT DATE December 16, 2023 OUTPATIENT VISIT TYPE ESTABLISHED PRIMARY CARE PHYSICIAN: Tere Muro MD ([facility]) [address] [place] [address] REFERRING PHYSICIAN: Ana Tillman [address] [place] [facility] [id number] CHIEF COMPLAINT: F/u HISTORY OF PRESENT ILLNESS: Ms. Mcgill is a 63 year old female who presents today for follow-up visit for atrial fibrillation and SVT. She was last seen in office 12/17/2022. She has a past medical history of hypertension, SVT, paroxysmal atrial fibrillation, hypothyroidism, diabetes, breast cancer s/p mastectomy/chemo/XRT 2009, and asthma. She had a PVI 12/26/2021. At the time of her last visit she had worn a zio revealing short runs of SVT. She reported feeling okay and that she continued to have episodes of palpitations once a day for several seconds which terminated with holding her breath. She has continued on apixaban and metoprolol. She had an episode last month where she woke up around 3 AM with palpitations. It lasted a minute or two. She continues to have flutters off and on but they are overall not bothersome. She can also cough to get them to stop. She feels exercising seems to cause them to be less frequent. She denies chest pain, shortness of breath, orthopnea, cough, edema, PND, lightheadedness or syncope. CHADS2-Vasc Score Breakdown 3 Total Score 1 Female 1 History of hypertension 1 History of diabetes mellitus PAST MEDICAL HISTORY No date: Asthma 12/16/2023: Atrial fibrillation (HCC) 04/2021: COVID-19 No date: Diabetes mellitus (HCC) No date: Hypothyroidism 04/02/2009: Malignant neoplasm of breast (female), unspecified site Comment: right, s/p XRT No date: Paroxysmal atrial fibrillation (HCC) No date: SVT (supraventricular tachycardia) (HCC) No date: Unspecified essential hypertension Comment: Essential hypertensionPAST SURGICAL HISTORY 12/26/2021: ABLATION A-FIB BY PVI No date: BIOPSY BREAST OPEN INCISIONAL Comment: Bx of breast, incisional 11/21/2010: BREAST RECONSTRUCTION Comment: Left pedicle TRAM flap and right mastopexy. 07/03/2009: MASTECTOMY, SIMPLE, COMPLETE Comment: Left simple mastectomy, sentinel lymph node biopsy, removal of a portion of the pectoralis muscle SOCIAL HISTORY Social History Tobacco Use Smoking status: Former Packs/day: 0.50 Years: 10.00 Additional pack years: 0.00 Total pack years: 5.00 Types: Cigarettes Quit date: 05/03/1988 Years since quittin.6 Smokeless tobacco: Never Vaping Use Vaping Use: Never used Substance Use Topics Alcohol use: Not Currently Drug use: No FAMILY HISTORY Problem Relation Age of Onset Breast Cancer Other distant maternal relative, age unknown other (atypical ductal hyperplasia [Other]) Mother other (dm [Other]) Mother Stroke Paternal Grandmother age46 Stroke Father age71 Diabetes Mother ALLERGIES: ALLERGIES Allergen Reactions Adhesive Tape (Velma* Rash Patient also had redness and itching from surgical EKG patch. Flexeril [Cyclobenz* Shortness of Breath Levoxyl [Levothyrox* Hives MEDICATIONS: metoprolol succinate ER (TOPROL XL) 25 mg 24 hr tablet Take 12.5 mg by mouth twice daily. LEVALBUTEROL TARTRATE INHALATION Inhale 1-2 Puffs as instructed four times daily as needed. TOOL DESIGNER THYROID 60 mg Take 60 mg by mouth once daily. metFORMIN ER (GLUCOPHAGE XR) 500 mg 24 hr tablet Take 500 mg by mouth twice daily. apixaban (ELIQUIS) 5 mg tab(s) Take 5 mg by mouth twice daily. Cholecalciferol, Vitamin D3, 25 mcg (1,000 unit) chew Take 3 tablets by mouth once daily. multivitamins(DAILY MULTIVITAMIN TAB) Take one(1) tablet daily. Scarlett Pang RN PHYSICAL EXAMINATION: BP 172/68 Pulse 63 Ht 165.1 cm (5' 5) Wt 56.2 kg (124 lb) LMP 07/03/2009 BMI 20.63 kg/m? General: Looks well; pleasant and cooperative Neck: No carotid bruits, JVP normal Lungs: Clear to auscultation Cardiac: Regular rate and rhythm, no murmurs, rubs, gallops or clicks Abdomen: Soft, nontender, nondistended, no bruits Extremities: No cyanosis, clubbing, or edema; extremeties are warm Neurologic: A AND O x 3; normal gait CARDIOVASCULAR MEDICINE TESTING: Zio 03/31/2022-04/14/2022 Patient had a min HR of 52 bpm, max HR of 193 bpm, and avg HR of 66 bpm. Predominant underlying rhythm was Sinus Rhythm. 87 Supraventri (more content not included)... Normal [facility] ECG COMPLETEon 12-16-2023 ECG COMPLETE Ventricular Rate : 6 3 BPM Atrial Rate : 63 BPM P-R Interval : 148 ms QRS Duration : 86 ms Q-T Interval : 432 ms QTC Calculation(Bazett) : 442 ms Calculated P [place] : 76 degrees Calculated R [place] : 71 degrees Calculated T [place] : 61 degrees SINUS RHYTHM WITH PREMATURE ATRIAL COMPLEXES OLD ANTERIOR MYOCARDIAL INFARCTION ABNORMAL ECG Confirmed by PRIYANK SANTOS MD ([id number]) on 01/14/2024 11:21:15 AM NAME : OLAMIDE MCGILL PID : [id number] : 1960 Gender : Female Race : ORD : [id number] Procedure Date : Dec 16 2023 07:52:11 Edit Date : Jan 14 2024 11:21:17 Diagnosis: SINUS RHYTHM WITH PREMATURE ATRIAL COMPLEXES OLD ANTERIOR MYOCARDIAL INFARCTION ABNORMAL ECG Confirmed by PRIYANK SANTOS MD ([id number]) on 01/14/2024 11:21:15 AM Test Reason : Location : 314 : J14 J1-4 Overread By : PRIYANK SANTOS MD Edited By : PRIYANK SANTOS MD Referred By : ANA TILLMAN Acquired by : ELLEN EASLEY [facility] Hemoglobin A1con 10-05-2023 HbA1c (Bld) [Mass fraction] 5.6 % Normal 3.8-5.6 [facility] Comment on above: Result Comment: Norm al < 5.7 % Prediabetic 5.7 - 6.4 % Diabetic >or= 6.5 % Please note range changes. Performed By: #### L 500.3400, L500.4100, L501.9985, L501.9520, L501.9310 #### [facility] [address] [place], [address] Lipid Profileon 10-05-2023 Cholesterol [Mass/Vol] 143 mg/dL Normal 200 [facility] Comment on above: Result Comment: <200 mg/dL Desirable 200-240 mg/dL Borderline >240 mg/dL High Risk Performed By: #### L 500.3400, L500.4100, L501.9985, L501.9520, L501.9310 #### [facility] [address] [place], [address] Cholesterol in HDL [Mass/Vol] 52 mg/dL Normal [facility] Comment on above: Result Comment: The drugs N-Acetylcysteine and Metamizole may falsely depress this assay. Reference Range HDL <40 mg/dL Low HDL Cholesterol HDL >or= 60 mg/dL High HDL Cholesterol Performed By: #### L 500.3400, L500.4100, L501.9985, L501.9520, L501.9310 #### [facility] [address] [place], [address] Cholesterol in LDL [Mass/Vol] 79 mg/dL Normal 0-130 [facility] Comment on above: Performed By: #### L 500.3400, L500.4100, L501.9985, L501.9520, L501.9310 #### [facility] [address] [place], [address] Cholesterol in VLDL [Mass/Vol] 12 mg/dL Normal 5-40 [facility] Comment on above: Performed By: #### L 500.3400, L500.4100, L501.9985, L501.9520, L501.9310 #### [facility] [address] [place], [address] Triglyceride [Mass/Vol] 58 mg/dL Normal [facility] Comment on above: Result Comment: The drugs N-Acetylcysteine and Metamizole may falsely depress this assay. Serum Triglycerides Reference Interval Normal <150 mg/dL Borderline high 150 - 199 mg/dL High 200 - 499 mg/dL Very High > or = 500 mg/dL Performed By: #### L 500.3400, L500.4100, L501.9985, L501.9520, L501.9310 #### [facility] [address] [place], [address] Liver Profileon 10-05-2023 Albumin [Mass/Vol] 4.0 g/dL Normal 3.2-5.0 [facility] Comment on above: Performed By: #### L 500.3400, L500.4100, L501.9985, L501.9520, L501.9310 #### [facility] [address] [place], [address] ALK P 80 U/L Normal 45-117 [facility] Comment on above: Performed By: #### L 500.3400, L500.4100, L501.9985, L501.9520, L501.9310 #### [facility] [address] [place], [address] ALT [Catalytic activity/Vol] 17 U/L Normal 13-56 [facility] Comment on above: Performed By: #### L 500.3400, L500.4100, L501.9985, L501.9520, L501.9310 #### [facility] [address] [place], [address] AST [Catalytic activity/Vol] 16 U/L Normal 15-37 [facility] Comment on above: Performed By: #### L 500.3400, L500.4100, L501.9985, L501.9520, L501.9310 #### [facility] [address] [place], [address] Bilirubin [Mass/Vol] 0.30 mg/dL Normal 0.20-1.00 [facility] Comment on above: Result Comment: For patients on eltrombopag therapy, use of Dimension [place] TBIL is not recommended. Performed By: #### L 500.3400, L500.4100, L501.9985, L501.9520, L501.9310 #### [facility] [address] [place], [address] Bilirubin.direct [Mass/Vol] 0.11 mg/dL Normal 0.00-0.30 [facility] Comment on above: Performed By: #### L 500.3400, L500.4100, L501.9985, L501.9520, L501.9310 #### [facility] [address] [place], [address] Globulin (S) [Mass/Vol] 3.0 g/dL Normal 2.2-4.2 [facility] Comment on above: Performed By: #### L 500.3400, L500.4100, L501.9985, L501.9520, L501.9310 #### [facility] [address] [place], [address] T PROT 7.0 g/dL Normal 6.4-8.2 [facility] Comment on above: Performed By: #### L 500.3400, L500.4100, L501.9985, L501.9520, L501.9310 #### [facility] [address] [place], [address] T4 Total, Thyroxinon 024 T4 [Mass/Vol] 6.8 ug/dL Normal 4.8-13.9 [facility] Comment on above: Performed By: #### L 500.3400, L500.4100, L501.9985, L501.9520, L501.9310 #### [facility] [address] [place], [address] Thyroid Stim Hormone (TSH)on 10-05-2023 TSH 2.21 uIU/mL Normal 0.358-3.74 [facility] Comment on above: Performed By: #### L 500.2500, L501.4020, L100.0100 #### [facility] [address] [place], [address] 12 Lead EKGon 09-28-2023 12 Lead EKG [facility] Cardiovascular Services [address] [place] [address] 12 Lead EKG 09/28/23 0211 MR#: [id number] Acct: [id number] Name: OLAMIDE MCGILL Rep #: [id number] : 1960 62 From: Erica Neville MD Attending Dr: Status: DEP ER Ordering Dr: José Wheeler MD Date: 09/28/23 Location: ED Sex: F C Admitted: Test Reason : CP Blood Pressure : / mmHG Vent. Rate : 062 BPM Atrial Rate : 062 BPM P-R Int : 170 ms QRS Dur : 086 ms QT Int : 418 ms P-R-T Axes : 088 051 044 degrees QTc Int : 424 ms Normal sinus rhythm Nonspecific ST and T wave abnormality Abnormal ECG Confirmed by MAXIMILIANO CORNELIUS, TALISHA ([id number]), medical editor SRAVAN CASEY ([id number]) on 09/30/2023 6:20:08 AM Referred By: Confirmed By:BINH NEVILLE MD 09/30/23619 Date Erica Neville MD CC: Dr. Tere Muro MD; Dr. José Wheeler MD Signed Normal [facility] Basic Metabolic Profile (BMP )on 09-28-2023 BUN/CRE 10.6 RATIO Normal 10-20 [facility] Comment on above: Order Comment: 'TROP ' Serial specimen #1, #2 or #3: 1 Performed By: #### L 500.2500, L501.4020, L100.0100 #### [facility] [address] [place], [address] CA,Total 9.6 mg/dL Normal 8.5-10.1 [facility] Comment on above: Order Comment: 'TROP ' Serial specimen #1, #2 or #3: 1 Performed By: #### L 500.2500, L501.4020, L100.0100 #### [facility] [address] [place], [address] Chloride [Moles/Vol] 108 mmol/L High 98-107 [facility] Comment on above: Order Comment: 'TROP ' Serial specimen #1, #2 or #3: 1 Performed By: #### L 500.2500, L501.4020, L100.0100 #### [facility] [address] [place], [address] CO2 [Moles/Vol] 26.0 mmol/L Normal 21.0-32.0 [facility] Comment on above: Order Comment: 'TROP ' Serial specimen #1, #2 or #3: 1 Performed By: #### L 500.2500, L501.4020, L100.0100 #### [facility] [address] [place], [address] Creatinine [Mass/Vol] 0.57 mg/dL Normal 0.55-1.02 [facility] Comment on above: Order Comment: 'TROP ' Serial specimen #1, #2 or #3: 1 Result Comment: The validity of the calculated GFR GFRAA in patients over 70 years has not been determined. Clinical correlation is essential. Performed By: #### L 500.2500, L501.4020, L100.0100 #### [facility] [address] [place], [address] ECRCL 90.90 ml/min Normal [facility] Comment on above: Order Comment: 'TROP ' Serial specimen #1, #2 or #3: 1 Performed By: #### L 500.2500, L501.4020, L100.0100 #### [facility] [address] [place], [address] EST GFR - AA 139 mL/min Normal >60 [facility] Comment on above: Order Comment: 'TROP ' Serial specimen #1, #2 or #3: 1 Result Comment: Afri can [place] GFR Calc Performed By: #### L 500.2500, L501.4020, L100.0100 #### [facility] [address] [place], [address] GAP 7 Normal 5-15 [facility] Comment on above: Order Comment: 'TROP ' Serial specimen #1, #2 or #3: 1 Performed By: #### L 500.2500, L501.4020, L100.0100 #### [facility] [address] [place], [address] GFR/1.73 sq M.predicted among non-blacks MDRD (S/P/Bld) [Vol rate/Area] 115 mL/min/{1.73_m2} Normal >60 [facility] Comment on above: Order Comment: 'TROP ' Serial specimen #1, #2 or #3: 1 Result Comment: Non- GFR Calc Performed By: #### L 500.2500, L501.4020, L100.0100 #### [facility] [address] [place], [address] Glucose [Mass/Vol] 119 mg/dL High 74-106 [facility] Comment on above: Order Comment: 'TROP ' Serial specimen #1, #2 or #3: 1 Result Comment: Fast ing Glucose result from 100 to 125 mg/dL suggests IMPAIRED HOMEOSTASIS per A.D.A. criteria. Performed By: #### L 500.2500, L501.4020, L100.0100 #### [facility] [address] [place], [address] Potassium [Moles/Vol] 4.3 mmol/L Normal 3.5-5.1 [facility] Comment on above: Order Comment: 'TROP ' Serial specimen #1, #2 or #3: 1 Performed By: #### L 500.2500, L501.4020, L100.0100 #### [facility] [address] [place], [address] Sodium [Moles/Vol] 141 mmol/L Normal 136-145 [facility] Comment on above: Order Comment: 'TROP ' Serial specimen #1, #2 or #3: 1 Performed By: #### L 500.2500, L501.4020, L100.0100 #### [facility] [address] [place], [address] Urea nitrogen [Mass/Vol] 6 mg/dL Low 7-18 [facility] Comment on above: Order Comment: 'TROP ' Serial specimen #1, #2 or #3: 1 Performed By: #### L 500.2500, L501.4020, L100.0100 #### [facility] [address] [place], [address] CBC W/Diff, Automatedon 05-2 Absolute Lymph 2.76 X10 3/uL Normal 0.83-4.51 [facility] Comment on above: Performed By: #### L 500.2500, L501.4020, L100.0100 #### [facility] [address] [place], [address] Absolute Neut 1.6 X10 3/uL Low 2.0-7.7 [facility] Comment on above: Performed By: #### L 500.2500, L501.4020, L100.0100 #### [facility] [address] [place], [address] Basophils/100 WBC (Bld) 1.2 % High 0-1 [facility] Comment on above: Performed By: #### L 500.2500, L501.4020, L100.0100 #### [facility] [address] [place], [address] Eosinophils/100 WBC (Bld) 3.3 % Normal 0-5 [facility] Comment on above: Performed By: #### L 500.2500, L501.4020, L100.0100 #### [facility] [address] [place], [address] Erythrocyte distribution width (RBC) [Ratio] 11.9 % Normal 11.6-14.6 [facility] Comment on above: Performed By: #### L 500.2500, L501.4020, L100.0100 #### [facility] [address] [place], [address] Hematocrit (Bld) [Volume fraction] 41.4 % Normal 37-47 [facility] Comment on above: Performed By: #### L 500.2500, L501.4020, L100.0100 #### [facility] [address] [place], [address] Hemoglobin (Bld) [Mass/Vol] 13.4 g/dL Normal 12.0-15.0 [facility] Comment on above: Performed By: #### L 500.2500, L501.4020, L100.0100 #### [facility] [address] [place], [address] IG% 0.000 Normal 0.0-0.9 [facility] Comment on above: Result Comment: IG% - Immature Granulocytes (promyelocytes, myelocytes and metamyelocytes) > 1% indicates that a LEFT SHIFT is Present. Performed By: #### L 500.2500, L501.4020, L100.0100 #### [facility] [address] [place], [address] Lymphocytes/100 WBC (Bld) 53.1 % High 19-41 [facility] Comment on above: Performed By: #### L 500.2500, L501.4020, L100.0100 #### [facility] [address] [place], [address] MCH (RBC) [Entitic mass] 30.4 pg Normal 27.0-32.0 [facility] Comment on above: Performed By: #### L 500.2500, L501.4020, L100.0100 #### [facility] [address] [place], [address] MCHC (RBC) [Mass/Vol] 32.4 g/dL Normal 32-36 [facility] Comment on above: Performed By: #### L 500.2500, L501.4020, L100.0100 #### [facility] [address] [place], [address] MCV (RBC) [Entitic vol] 93.9 fL Normal 81-99 [facility] Comment on above: Performed By: #### L 500.2500, L501.4020, L100.0100 #### [facility] [address] [place], [address] Monocytes/100 WBC (Bld) 11.2 % High 0-10 [facility] Comment on above: Performed By: #### L 500.2500, L501.4020, L100.0100 #### [facility] [address] [place], [address] Neutrophils/100 WBC (Bld) 31.2 % Low 47-70 [facility] Comment on above: Performed By: #### L 500.2500, L501.4020, L100.0100 #### [facility] [address] [place], [address] Nucleated RBC (Bld) [#/Vol] 0 10*3/uL Normal 0-5 [facility] Comment on above: Performed By: #### L 500.2500, L501.4020, L100.0100 #### [facility] [address] [place], [address] Platelet mean volume (Bld) [Entitic vol] 10.2 fL Normal 6.2-12.0 [facility] Comment on above: Performed By: #### L 500.2500, L501.4020, L100.0100 #### [facility] [address] [place], [address] Platelets (Bld) [#/Vol] 226 10*3/uL Normal 150-450 [facility] Comment on above: Performed By: #### L 500.2500, L501.4020, L100.0100 #### [facility] [address] [place] [place], [address] RBC (Bld) [#/Vol] 4.41 10*6/uL Normal 4.2-5.4 [facility] Comment on above: Performed By: #### L 500.2500, L501.4020, L100.0100 #### [facility] [address] [place], [address] RDW SD 41.2 fl Normal 35.1-43.9 [facility] Comment on above: Performed By: #### L 500.2500, L501.4020, L100.0100 #### [facility] [address] [place], [address] WBC (Bld) [#/Vol] 5.2 10*3/uL Normal 4.4-11.0 [facility] Comment on above: Performed By: #### L 500.2500, L501.4020, L100.0100 #### [facility] [address] [place], [address] Chest 1 View (Portable)on Chest 1 View (Portable) [facility] Imaging Services [address] [place] [address] Chest 1 View (Portable) MR#: [id number] Acct: [id number] Name: OLAMIDE MCGILL Rep #: [id number] : 1960 F 62 From: Chadd Godinez MD PCP: Dr. Tere Muro MD Status: REG ER Study: Chest 1 View (Portable) Date of Exam: 09/28/23 Exam# [id number] Ordering Dr: [place] [id number] INDICATION: chest pain EXAMINATION/TECHNIQUE: X-RAY - XR Chest 1 View COMPARISON: 12/14/2021 chest radiograph Findings: Single frontal view of the chest. LUNG PARENCHYMA: No acute focal airspace disease or mass lesion. PLEURA: No pleural effusion. No pneumothorax. HEART/GREAT VESSELS: Cardiomediastinal silhouette is unremarkable. BONES: Osseous structures are unremarkable for age. RAD/Chest 1 View (Portable) IMPRESSION: Chest with no acute disease. Electronically Signed: Chadd Godinez MD at 2:47 EDT , CC: Dr. Tere Muro MD; Dr. José Wheeler MD Battery [employer] Cell: Signed Normal [facility] Emergency Department Summary on 09-28-2023 Emergency Department Summary [facility] Medical Records Department [address] [place] [address] Emergency Department Summary 09/28/23 MR#: [id number] Acct: [id number] Name: OLAMIDE MCGILL Rep #: [id number] : 1960 62 From: José Wheeler MD PCP: Dr. Tere Muro MD Status:REG ER Location: ED HPI History of Present Illness Chief Complaint: Hypertension Detail of Chief Complaint: Acute on chronic hypertension. Informant: patient Onset/Context/Timing Onset: Today Timing: Intermittent Narrative Narrative: 62-year-old female has a history of hypertension, A-fib, prior cardiac ablation diabetes and is currently on Eliquis. She is also on metoprolol for hypertension. Recently has had some palpitations. Elevated blood pressure today. Blood pressure was 150/83. She decided to have it evaluated. She may have had some very mild nonexertional chest pain. She has had no recent exertional chest pain or exertional dyspnea. Prior similar symptoms: Yes Recent Illness/Hospitalization : No PFSH PFS Medical History HTN (hypertension) History of left heart catheterization (LHC) ( 04/22/13) Hypothyroidism SVT (supraventricular tachycardia) Type 2 diabetes mellitus Atrial fibrillation HX: breast cancer Tachycardia Home Medications ???Medication ???Instructions ???Recorded ???Last Taken ???Type apixaban 5 mg tablet (Eliquis) 5 mg PO BID #180 tabs 05/30/21 Unknown Rx metformin 500 mg tablet 1,000 mg PO DAILY 05/30/21 Unknown History thyroid (pork) 60 mg tablet 60 mg PO DAILY 05/30/21 Unknown History ([place] Thyroid) levalbuterol tartrate 45 45 mcg inhalation PRN PRN 12/14/21 Unknown History mcg/actuation aerosol inhaler Shortness Of Breath metoprolol succinate 25 mg 50 mg PO BID 12/14/21 Unknown History tablet,extended release 24 hr Allergy/AdvReac Type Severity Reaction Status Date / Time cyclobenzaprine Allergy Severe dyspnea Verified 09/28/23 02:02 Sulfa (Sulfonamide Allergy Severe hives Verified 09/28/23 02:02 Antibiotics) adhesive tape Allergy Rash Verified 09/28/23 02:02 Family History Mother Diabetes Myocardial infarction CVA (cerebral vascular accident) Father CVA (cerebral vascular accident) Surgical History History of breast reconstruction History of total mastectomy of left breast Hx of lumpectomy Social History Smoking Status: Former smoker alcohol intake: never substance use type: does not use caffeine: Yes Type: tea Number of servings: 1 ROS ROS ED ROS Narrative Denies recent illness. Review of Systems ROS Unobtainable: Denies due to encephalopathy Constitutional Constitutional ED: Denies anorexia Eyes Eyes: Reports none ENT ENT ED: Reports none Cardiovascular Cardiovascular: Reports hypertension and palpitations Respiratory/Chest Respiratory/Chest: Reports none Gastrointestinal Gastrointestinal: Reports none Genitourinary Genitourinary ED: Reports none Musculoskeletal Musculoskeletal: Reports none Integumentary Reports none Psychiatric Psychiatric: Reports none Endocrine Endocrinology: Reports none Hematologic/Lymphatic Hematologic/Lymphatic: Reports none Allergic/Immunologic Allergic/Immunologic ED: Reports none EXAM Physical Exam Narrative Exam Narrative: Well-appearing 62-year-old female. Vital signs are stable afebrile except for initial blood pressure 219/92. Pulse ox 98% on room air no hypoxia. H EENT exam unremarkable. Neck nontender. No JVD. Lungs clear to auscultation bilaterally. Heart regular rhythm rate about 60 no murmur. Chest wall and ribs nontender. Abdomen soft nontender. Moving all 4 extremities. Calves are nontender without edema or cords. Equal symmetrical radial pulses. Normal cylinder press feeder strength. He is awake alert. No focal motor deficits. Benign exam. Const Vital Signs: 09/28/23 02:02 09/28/23 02:16 Temperature 97 F L Temperature Source Temporal Pulse Rate 60 Respiratory Rate 16 Blood Pressure 219/92 H Blood Pressure Mean 134 Pulse Ox 98 Oxygen Delivery Method Room Air Room Air Positive well nourished, well developed, alert, oriented x3, no apparent distress, average body habitus, no limitations and healthy appearing; Negative for obese, cachectic, contractures or unkempt General Appearance ED: active, cooperative, comfortable, well kempt and well developed; Negative for unkempt, cachectic or contractures Orientation / Consciousness: awake Nutritional Appearance: Negative for cachectic or obese HEENT Reports normocephalic and head/scalp atraumatic normocephalic Face and Sinus: normal facial exam Nose: ext (more content not included)... Normal [facility] L501.4020on 09-28-2023 TROPONIN-I HS 6 pg/mL Normal 3.0-54.0 [facility] Comment on above: Order Comment: 'TROP ' Serial specimen #1, #2 or #3: 1 Result Comment: Demarco rai Note: New Test Units and Gender Specific Reference Ranges. For more information see Policy Stat Procedure [place] High Sensitivity Troponin (TNIH) and attachments. Performed By: #### L 500.2500, L501.4020, L100.0100 #### [facility] [address] [place], [address] ARRHYTHMIA TRANS TELE MEASUR Andi 03-30-2022 Measure ND Interval 144 [facility] MEASURE QRS Interval 97 [place] [facility] MEASURE QT Interval 352 Eh [facility] MEASURE RR INTERVAL MAX 57.[address] [facility] Symptoms routine [facility] ARRHYTHMIA TRANS TELE MEASUR Andi 03-16-2022 Measure ND Interval 186 Eh [facility] MEASURE QRS Interval 80 [place] [facility] MEASURE QT Interval 415 Eh [facility] MEASURE RR INTERVAL MAX 64.5 [facility] Symptoms Routine [facility] ARRHYTHMIA TRANS TELE MEASUR Andi 03-06-2022 Measure ND Interval 133 Eh [facility] MEASURE QRS Interval [address] [facility] MEASURE QT Interval 329 Eh [facility] MEASURE RR INTERVAL MAX 61.22 [facility] Symptoms Routine [facility] ARRHYTHMIA TRANS TELE MEASUR Andi 02-16-2022 Measure ND Interval 164 [facility] MEASURE QRS Interval 81 [facility] MEASURE QT Interval 460 Eh [facility] MEASURE RR INTERVAL MAX 82.78 [facility] Symptoms Routine [facility] ARRHYTHMIA TRANS TELE MEASUR Andi 02-04-2022 Measure ND Interval 130 Eh [facility] MEASURE QRS Interval 60 [facility] MEASURE QT Interval 224 [facility] MEASURE RR INTERVAL MAX 76.82 [facility] Symptoms Routine [facility] Symptoms Routine [facility] ARRHYTH-MEASURE QRS INTERVAL MIN 60 [place] [facility] ARRHYTH-MEASURE QT INTERVAL MIN 450 [facility] Arrhyth-Measure RR Interval Min 69.11 [facility] ARRHYTH-MEASUREPRIN TERVALMIN 130 [facility] Measure [place] [facility] Inter[facility] MEASURE QT Interval [facility] INTERVAL MAX 86.[address] [facility] Sympt[facility] routine [facility] ARRHYTHMIA TRANS TELE MEASUR Andi 01-29-2022 Measure [place] Interval [facility] ME[facility] Interval 60 [facility] MEASURE QT Interval 278 Eh [facility] MEASURE RR INTERVAL MAX 69.92 [facility] Symptoms Routine [facility] ARRHYTHMIA TRANS TELE MEASUR Andi 01-22-2022 Measure ND Interval 136 Eh [facility] MEASURE QRS Interval 96 [facility] MEASURE QT Interval 470 Eh [facility] MEASURE RR INTERVAL MAX 80.81 [facility] Symptoms Routine [facility] ARRHYTHMIA TRANS TELE MEASUR Andi 01-12-2022 Measure ND Interval 107 Eh [facility] MEASURE QRS Interval 114 [facility] MEASURE QT Interval 288 [facility] MEASURE RR INTERVAL MAX 93.23 [facility] Symptoms routine [facility] ARRHYTHMIA TRANS TELE MEASUR Andi 01-06-2022 Measure ND Interval 171 [facility] MEASURE QRS Interval 97 [facility] MEASURE QT Interval 295 [facility] MEASURE RR INTERVAL MAX 73.06 [facility] Symptoms routine [facility] CT PULMONARY VEIN W IVCONon 12-25-2021 [facility] Absolute lymphocyte counton 12-14-2021 Lymphocytes Auto (Unsp spec) [#/Vol] 1.58 10*3/uL 0.83-4.51 [facility] Work Phone: Basophil percentageon 2021 Basophils/100 WBC (Bld) 0.9 % 0-1 [facility] Work Phone: Chloride [Moles/Vol] 106 mmol/L 98-107 [facility] Work Phone: Eosinophils/100 WBC (Bld) 2.1 % 0-5 [facility] Work Phone: Glucose [Mass/Vol] 144 mg/dL 74-106 [facility] Work Phone: Comment on above: Fasting Glucose resu lt greater than or equal to 126 mg/dL suggests DIABETES MELLITUS per A.D.A. criteria. Neutrophils (Bld) [#/Vol] 3.5 10*3/uL 2.0-7.7 [facility] Work Phone: Neutrophils/100 WBC (Bld) 60.0 % 47-70 [facility] Work Phone: Potassium [Moles/Vol] 4.3 mmol/L 3.5-5.1 [facility] Work Phone: Sodium [Moles/Vol] 140 mmol/L 136-145 [facility] Work Phone: WBC (Bld) [#/Vol] 5.8 10*3/uL 4.4-11.0 [facility] Work Phone: Blood erythrocytes count (nu mber/volume)on 12-14-2021 RBC (Bld) [#/Vol] 4.79 10*6/uL 4.2-5.4 [facility] Work Phone: Blood hemoglobin measurement (mass/volume)on 12-14-2021 Hemoglobin (Bld) [Mass/Vol] 15.4 g/dL 12.0-15.0 [facility] Work Phone: Blood lymphocytes/100 leukoc yteson 12-14-2021 Lymphocytes/100 WBC (Bld) 27.2 % 19-41 [facility] Work Phone: Blood monocytes/100 leukocyt eson 12-14-2021 Monocytes/100 WBC (Bld) 9.6 % 0-10 [facility] Work Phone: Blood platelet mean volumeon 12-14-2021 Platelet mean volume (Bld) [Entitic vol] 10.9 fL 6.2-12.0 [facility] Work Phone: Determination of erythrocyte mean corpuscular volume (MCV)on 12-14-2021 MCV (RBC) [Entitic vol] 97.1 fL 81-99 [facility] Work Phone: Hematocrit Auto (Bld) [Volum e fraction]on 12-14-2021 Hematocrit (Bld) [Volume fraction] 46.5 % 37-47 [facility] Work Phone: Laboratory - Chemistry and C hemistry - challengeon 12-14-2021 CO2 [Moles/Vol] 31.0 mmol/L 21.0-32.0 [facility] Work Phone: Magnesium [Mass/Vol] 2.4 mg/dL 1.6-2.6 [facility] Work Phone: Urea nitrogen/Creatinine [Mass ratio] 28.6 mg/mg 10-20 [facility] Work Phone: Laboratory - Hematology and Cell countson 12-14-2021 Erythrocyte distribution width (RBC) [Entitic vol] 42.5 fL 35.1-43.9 [facility] Work Phone: Erythrocyte distribution width (RBC) [Ratio] 11.8 % 11.6-14.6 [facility] Work Phone: Immature granulocytes/100 WBC (Bld) 0.200 % 0.0-0.9 [facility] Work Phone: Comment on above: IG% - Immature Granu locytes (promyelocytes, myelocytes and metamyelocytes) > 1% indicates that a LEFT SHIFT is Present. MCH (RBC) [Entitic mass] 32.2 pg 27.0-32.0 [facility] Work Phone: Nucleated RBC/100 WBC (Bld) [Ratio] 0 % 0-5 [facility] Work Phone: MCHC Auto (RBC) [Mass/Vol]on 12-14-2021 MCHC (RBC) [Mass/Vol] 33.1 g/dL 32-36 [facility] Work Phone: No Panel Informationon 12-14 Estimated Creatinine Clearance Calc 74.98 ml/min [facility] Work Phone: Estimated GFR (MDRD) Amer 109 mL/min >60 [facility] Work Phone: Comment on above: GFR Calc Estimated GFR (MDRD) Non-Af Amer 90 mL/min >60 [facility] Work Phone: Comment on above: Non- GFR Calc Platelets bldon 12-14-2021 Platelets (Bld) [#/Vol] 254 10*3/uL 150-450 [facility] Work Phone: Serum or plasma calcium bob urement (mass/volume)on 12-14-2021 Calcium [Mass/Vol] 9.4 mg/dL 8.5-10.1 [facility] Work Phone: Serum or plasma creatinine m easurement (mass/volume)on 12-14-2021 Creatinine [Mass/Vol] 0.70 mg/dL 0.55-1.02 [facility] Work Phone: Comment on above: The validity of the calculated GFR & GFRAA in patients over 70 years has not been determined. Clinical correlation is essential. Serum or plasma urea nitroge n measurement (mass/volume)on 12-14-2021 Urea nitrogen [Mass/Vol] 20 mg/dL 7-18 [facility] Work Phone: Thin prep Papanicolaou smear with manual screeningon 12-14-2021 Thin prep Papanicolaou smear with manual screening 3 5-15 [facility] Work Phone: Absolute lymphocyte counton 11-05-2021 Lymphocytes Auto (Unsp spec) [#/Vol] 1.37 10*3/uL 0.83-4.51 [facility] Work Phone: Basophil percentageon 2021 Basophils/100 WBC (Bld) 0.7 % 0-1 [facility] Work Phone: Bilirubin [Mass/Vol] 0.30 mg/dL 0.20-1.00 [facility] Work Phone: Comment on above: For patients on eltr ombopag therapy, use of Dimension [place] TBIL is not recommended. Chloride [Moles/Vol] 107 mmol/L 98-107 [facility] Work Phone: Eosinophils/100 WBC (Bld) 2.0 % 0-5 [facility] Work Phone: Glucose [Mass/Vol] 137 mg/dL 74-106 [facility] Work Phone: Comment on above: Fasting Glucose resu lt greater than or equal to 126 mg/dL suggests DIABETES MELLITUS per A.D.A. criteria. Neutrophils (Bld) [#/Vol] 3.6 10*3/uL 2.0-7.7 [facility] Work Phone: Neutrophils/100 WBC (Bld) 63.6 % 47-70 [facility] Work Phone: Potassium [Moles/Vol] 4.0 mmol/L 3.5-5.1 [facility] Work Phone: Protein [Mass/Vol] 7.0 g/dL 6.4-8.2 [facility] Work Phone: Sodium [Moles/Vol] 140 mmol/L 136-145 [facility] Work Phone: WBC (Bld) [#/Vol] 5.6 10*3/uL 4.4-11.0 [facility] Work Phone: Blood erythrocytes count (nu mber/volume)on 11-05-2021 RBC (Bld) [#/Vol] 4.12 10*6/uL 4.2-5.4 [facility] Work Phone: Blood hemoglobin measurement (mass/volume)on 11-05-2021 Hemoglobin (Bld) [Mass/Vol] 12.9 g/dL 12.0-15.0 [facility] Work Phone: Blood lymphocytes/100 leukoc yteson 11-05-2021 Lymphocytes/100 WBC (Bld) 24.6 % 19-41 [facility] Work Phone: Blood monocytes/100 leukocyt eson 11-05-2021 Monocytes/100 WBC (Bld) 8.4 % 0-10 [facility] Work Phone: Blood platelet mean volumeon 11-05-2021 Platelet mean volume (Bld) [Entitic vol] 10.4 fL 6.2-12.0 [facility] Work Phone: Determination of erythrocyte mean corpuscular volume (MCV)on 11-05-2021 MCV (RBC) [Entitic vol] 96.4 fL 81-99 [facility] Work Phone: Hematocrit Auto (Bld) [Volum e fraction]on 11-05-2021 Hematocrit (Bld) [Volume fraction] 39.7 % 37-47 [facility] Work Phone: Laboratory - Chemistry and C hemistry - challengeon 11-05-2021 ALP [Catalytic activity/Vol] 91 U/L 45-117 [facility] Work Phone: ALT [Catalytic activity/Vol] 30 U/L 13-56 [facility] Work Phone: CO2 [Moles/Vol] 31.0 mmol/L 21.0-32.0 [facility] Work Phone: Globulin (S) [Mass/Vol] 3.1 g/dL 2.2-4.2 [facility] Work Phone: Urea nitrogen/Creatinine [Mass ratio] 14.9 mg/mg 10-20 [facility] Work Phone: Laboratory - Hematology and Cell countson 11-05-2021 Erythrocyte distribution width (RBC) [Entitic vol] 44.8 fL 35.1-43.9 [facility] Work Phone: Erythrocyte distribution width (RBC) [Ratio] 12.5 % 11.6-14.6 [facility] Work Phone: Immature granulocytes/100 WBC (Bld) 0.700 % 0.0-0.9 [facility] Work Phone: Comment on above: IG% - Immature Granu locytes (promyelocytes, myelocytes and metamyelocytes) > 1% indicates that a LEFT SHIFT is Present. MCH (RBC) [Entitic mass] 31.3 pg 27.0-32.0 [facility] Work Phone: Nucleated RBC/100 WBC (Bld) [Ratio] 0 % 0-5 [facility] Work Phone: MCHC Auto (RBC) [Mass/Vol]on 11-05-2021 MCHC (RBC) [Mass/Vol] 32.5 g/dL 32-36 [facility] Work Phone: No Panel Informationon 11-05 Estimated Creatinine Clearance Calc 88.60 ml/min [facility] Work Phone: Estimated GFR (MDRD) Amer 129 mL/min >60 [facility] Work Phone: Comment on above: GFR Calc Estimated GFR (MDRD) Non-Af Amer 107 mL/min >60 [facility] Work Phone: Comment on above: Non- GFR Calc Platelets bldon 11-05-2021 Platelets (Bld) [#/Vol] 234 10*3/uL 150-450 [facility] Work Phone: Serum or plasma albumin bob urement (mass/volume)on 11-05-2021 Albumin [Mass/Vol] 3.9 g/dL 3.2-5.0 [facility] Work Phone: Serum or plasma albumin/glob ulin mass ratioon 11-05-2021 Albumin/Globulin [Mass ratio] 1.3 {ratio} 0.9-2.4 [facility] Work Phone: Serum or plasma calcium bob urement (mass/volume)on 11-05-2021 Calcium [Mass/Vol] 9.3 mg/dL 8.5-10.1 [facility] Work Phone: Serum or plasma creatinine m easurement (mass/volume)on 11-05-2021 Creatinine [Mass/Vol] 0.60 mg/dL 0.55-1.02 [facility] Work Phone: Comment on above: The validity of the calculated GFR & GFRAA in patients over 70 years has not been determined. Clinical correlation is essential. Serum or plasma urea nitroge n measurement (mass/volume)on 11-05-2021 Urea nitrogen [Mass/Vol] 9 mg/dL 7-18 [facility] Work Phone: Thin prep Papanicolaou smear with manual screeningon 11-05-2021 Thin prep Papanicolaou smear with manual screening 20 U/L 15-37 [facility] Work Phone: Thin prep Papanicolaou smear with manual screening 2 5-15 [facility] Work Phone: Absolute lymphocyte counton 10-20-2021 Lymphocytes Auto (Unsp spec) [#/Vol] 1.48 10*3/uL 0.83-4.51 [facility] Work Phone: Basophil percentageon 2021 Basophils/100 WBC (Bld) 1.1 % 0-1 [facility] Work Phone: Chloride [Moles/Vol] 106 mmol/L 98-107 [facility] Work Phone: Eosinophils/100 WBC (Bld) 2.1 % 0-5 [facility] Work Phone: Glucose [Mass/Vol] 106 mg/dL 74-106 [facility] Work Phone: Comment on above: Fasting Glucose resu lt from 100 to 125 mg/dL suggests IMPAIRED HOMEOSTASIS per A.D.A. criteria. Neutrophils (Bld) [#/Vol] 3.4 10*3/uL 2.0-7.7 [facility] Work Phone: Neutrophils/100 WBC (Bld) 60.8 % 47-70 [facility] Work Phone: Potassium [Moles/Vol] 4.3 mmol/L 3.5-5.1 [facility] Work Phone: Sodium [Moles/Vol] 139 mmol/L 136-145 [facility] Work Phone: WBC (Bld) [#/Vol] 5.6 10*3/uL 4.4-11.0 [facility] Work Phone: Blood erythrocytes count (nu mber/volume)on 10-20-2021 RBC (Bld) [#/Vol] 4.42 10*6/uL 4.2-5.4 [facility] Work Phone: Blood hemoglobin measurement (mass/volume)on 10-20-2021 Hemoglobin (Bld) [Mass/Vol] 13.7 g/dL 12.0-15.0 [facility] Work Phone: Blood lymphocytes/100 leukoc yteson 10-20-2021 Lymphocytes/100 WBC (Bld) 26.4 % 19-41 [facility] Work Phone: Blood monocytes/100 leukocyt eson 10-20-2021 Monocytes/100 WBC (Bld) 9.6 % 0-10 [facility] Work Phone: Blood platelet mean volumeon 10-20-2021 Platelet mean volume (Bld) [Entitic vol] 10.6 fL 6.2-12.0 [facility] Work Phone: Determination of erythrocyte mean corpuscular volume (MCV)on 10-20-2021 MCV (RBC) [Entitic vol] 95.9 fL 81-99 [facility] Work Phone: Hematocrit Auto (Bld) [Volum e fraction]on 10-20-2021 Hematocrit (Bld) [Volume fraction] 42.4 % 37-47 [facility] Work Phone: Laboratory - Chemistry and C hemistry - challengeon 10-20-2021 CO2 [Moles/Vol] 31.0 mmol/L 21.0-32.0 [facility] Work Phone: Natriuretic peptide B (Bld) [Mass/Vol] 199.0 pg/mL 0-100 [facility] Work Phone: Urea nitrogen/Creatinine [Mass ratio] 25.0 mg/mg 10- [facility] Work Phone: Laboratory - Hematology and Cell countson 10-20-2021 Erythrocyte distribution width (RBC) [Entitic vol] 42.3 fL 35.1-43.9 [facility] Work Phone: Erythrocyte distribution width (RBC) [Ratio] 12.1 % 11.6-14.6 [facility] Work Phone: Immature granulocytes/100 WBC (Bld) 0.000 % 0.0-0.9 [facility] Work Phone: Comment on above: IG% - Immature Granu locytes (promyelocytes, myelocytes and metamyelocytes) > 1% indicates that a LEFT SHIFT is Present. MCH (RBC) [Entitic mass] 31.0 pg 27.0-32.0 [facility] Work Phone: Nucleated RBC/100 WBC (Bld) [Ratio] 0 % 0-5 [facility] Work Phone: MCHC Auto (RBC) [Mass/Vol]on 10-20-2021 MCHC (RBC) [Mass/Vol] 32.3 g/dL 32-36 [facility] Work Phone: No Panel Informationon 10-20 Estimated Creatinine Clearance Calc 88.60 ml/min [facility] Work Phone: Estimated GFR (MDRD) Amer 131 mL/min >60 [facility] Work Phone: Comment on above: GFR Calc Estimated GFR (MDRD) Non-Af Amer 108 mL/min >60 [facility] Work Phone: Comment on above: Non- GFR Calc Thyroid Stimulating Hormone (TSH) 3.36 uIU/mL 0.358-3.74 [facility] Work Phone: Troponin I High Sensitivity 5 pg/mL 3.0-54.0 [facility] Work Phone: Comment on above: Please Note: [place] t Units and Gender Specific Reference Ranges. For more information see Policy Stat Procedure [place] High Sensitivity Troponin (TNIH) and attachments. Platelets bldon 10-20-2021 Platelets (Bld) [#/Vol] 268 10*3/uL 150-450 [facility] Work Phone: Serum or plasma calcium bob urement (mass/volume)on 10-20-2021 Calcium [Mass/Vol] 9.6 mg/dL 8.5-10.1 [facility] Work Phone: Serum or plasma creatinine m easurement (mass/volume)on 10-20-2021 Creatinine [Mass/Vol] 0.60 mg/dL 0.55-1.02 [facility] Work Phone: Comment on above: The validity of the calculated GFR & GFRAA in patients over 70 years has not been determined. Clinical correlation is essential. Serum or plasma urea nitroge n measurement (mass/volume)on 10-20-2021 Urea nitrogen [Mass/Vol] 15 mg/dL 7-18 [facility] Work Phone: Thin prep Papanicolaou smear with manual screeningon 10-20-2021 Thin prep Papanicolaou smear with manual screening 2 5-15 [facility] Work Phone: NM CARDIAC PERF STRESS/PHARM on 08-15-2021 [facility] Absolute lymphocyte counton 07-25-2021 Lymphocytes Auto (Unsp spec) [#/Vol] 2.60 10*3/uL 0.83-4.51 [facility] Work Phone: Basophil percentageon 2021 Basophils/100 WBC (Bld) 2.8 % 0-1 [facility] Work Phone: Chloride [Moles/Vol] 110 mmol/L 98-107 [facility] Work Phone: Eosinophils/100 WBC (Bld) 1.1 % 0-5 [facility] Work Phone: Glucose [Mass/Vol] 121 mg/dL 74-106 [facility] Work Phone: Comment on above: Fasting Glucose resu lt from 100 to 125 mg/dL suggests IMPAIRED HOMEOSTASIS per A.D.A. criteria. Lymphocytes/100 WBC (Bld) 45.5 % 19-41 [facility] Work Phone: Monocytes/100 WBC (Bld) 11.2 % 0-10 [facility] Work Phone: Neutrophils (Bld) [#/Vol] 2.2 10*3/uL 2.0-7.7 [facility] Work Phone: Neutrophils/100 WBC (Bld) 39.2 % 47-70 [facility] Work Phone: Potassium [Moles/Vol] 3.6 mmol/L 3.5-5.1 [facility] Work Phone: Sodium [Moles/Vol] 142 mmol/L 136-145 [facility] Work Phone: WBC (Bld) [#/Vol] 5.7 10*3/uL 4.4-11.0 [facility] Work Phone: Blood erythrocytes count (nu mber/volume)on 03-25-2022 RBC (Bld) [#/Vol] 4.69 10*6/uL 4.2-5.4 [facility] Work Phone: Blood hemoglobin measurement (mass/volume)on 07-25-2021 Hemoglobin (Bld) [Mass/Vol] 14.5 g/dL 12.0-15.0 [facility] Work Phone: Blood platelet mean volumeon 07-25-2021 Platelet mean volume (Bld) [Entitic vol] 10.6 fL 6.2-12.0 [facility] Work Phone: Determination of erythrocyte mean corpuscular volume (MCV)on 07-25-2021 MCV (RBC) [Entitic vol] 90.8 fL 81-99 [facility] Work Phone: Hematocrit Auto (Bld) [Volum e fraction]on 07-25-2021 Hematocrit (Bld) [Volume fraction] 42.6 % 37-47 [facility] Work Phone: Laboratory - Chemistry and C hemistry - challengeon 07-25-2021 CO2 [Moles/Vol] 27.0 mmol/L 21.0-32.0 [facility] Work Phone: Magnesium [Mass/Vol] 2.0 mg/dL 1.6-2.6 [facility] Work Phone: Urea nitrogen/Creatinine [Mass ratio] 22.2 mg/mg 10-20 [facility] Work Phone: Laboratory - Hematology and Cell countson 07-25-2021 Erythrocyte distribution width (RBC) [Entitic vol] 39.6 fL 35.1-43.9 [facility] Work Phone: Erythrocyte distribution width (RBC) [Ratio] 11.9 % 11.6-14.6 [facility] Work Phone: Immature granulocytes/100 WBC (Bld) 0.200 % 0.0-0.9 [facility] Work Phone: Comment on above: IG% - Immature Granu locytes (promyelocytes, myelocytes and metamyelocytes) > 1% indicates that a LEFT SHIFT is Present. MCH (RBC) [Entitic mass] 30.9 pg 27.0-32.0 [facility] Work Phone: Nucleated RBC/100 WBC (Bld) [Ratio] 0 % 0-5 [facility] Work Phone: MCHC Auto (RBC) [Mass/Vol]on 07-25-2021 MCHC (RBC) [Mass/Vol] 34.0 g/dL 32-36 [facility] Work Phone: No Panel Informationon 07-25 Estimated GFR (MDRD) Amer 124 mL/min >60 [facility] Work Phone: Estimated GFR (MDRD) Non-Af Amer 102 mL/min >60 [facility] Work Phone: Platelets bldon 07-25-2021 Platelets (Bld) [#/Vol] 236 10*3/uL 150-450 [facility] Work Phone: Serum or plasma calcium bob urement (mass/volume)on 07-25-2021 Calcium [Mass/Vol] 9.5 mg/dL 8.5-10.1 [facility] Work Phone: Serum or plasma creatinine m easurement (mass/volume)on 07-25-2021 Creatinine [Mass/Vol] 0.63 mg/dL 0.55-1.02 [facility] Work Phone: Comment on above: The validity of the calculated GFR & GFRAA in patients over 70 years has not been determined. Clinical correlation is essential. Serum or plasma urea nitroge n measurement (mass/volume)on 07-25-2021 Urea nitrogen [Mass/Vol] 14 mg/dL 7-18 [facility] Work Phone: Thin prep Papanicolaou smear with manual screeningon 07-25-2021 Thin prep Papanicolaou smear with manual screening 5 5-15 [facility] Work Phone: COVID PCR, SCREENING CONGREG ATEon 10-25-2019 CORONAVIRUS 2019,PCR NOT DETECTED Normal Not Detected [facility] Comment on above: Result Comment: This assay is designed to detect the N, ORF1ab and/or S genes of SARS-CoV-2 via nucleic acid amplification. A Negative (NOT DETECTED) result does not preclude 2019-nCoV infection since the adequacy of sample collection and/or low viral burden may result in presence of viral nucleic acids below the clinical sensitivity of this test method. Negative (NOT DETECTED) result should not be used as the sole basis for treatment or other patient management decisions. Rather negative results should be combined with clinical observations, patient history, and epidemiological information to make patient management decisions. Fact sheet for providers: https://www.fda.gov/media/243115/download Fact sheet for patients: https://www.fda.gov/media/825741/download This test has received FDA Emergency Use Authorization (EUA) and has been verified by [facility] ([facility] [[email or web address] This test is only authorized for the duration of time that circumstances exist to justify the authorization of the emergency use of in vitro diagnostic tests for the detection of SARS-CoV-2 virus and/or diagnosis of COVID-19 infection under section 564(b)(1) of the Act, 21 U.S.C. 360bbb-3(b)(1), unless the authorization is terminated or revoked sooner. [facility] ([facility] [[email or web address] is certified under CLIA-88 as qualified to perform high complexity testing. This tests analytical performance characteristics have been determined by [facility] [[email or web address]]. Testing is performed at [facility] [[email or web address]] is located at [address] [place] [address] (CLIA License #[id number], CAP #[id number]). Performed By: #### C VCLA #### [facility] [address] [place] [address] COVID PCR, SCREENING CONGREG ATEon 10-24-2019 Lab Specimen Source Nasal, Nasopharyngeal Normal [facility] Comment on above: Performed By: #### C VCLA #### [facility] [address] [place] [address] Vital Signs Date Time Vital Sign Value Performing Clinician Facility 12-16-2023 09:32-0400 Body height 165.1 cm Ana Tillman MD Work Phone: [facility] 12-16-2023 09:32-0400 Body mass index (BMI) [Ratio] 20.63 kg/m2 Ana Tillman MD Work Phone: [facility] 12-16-2023 09:32-0400 Body weight 56.25 kg Ana Tillman MD Work Phone: [facility] 12-16-2023 09:32-0400 Diastolic blood pressure 68 mm[Hg] Ana Tillman MD Work Phone: [facility] 12-16-2023 09:32-0400 Heart rate 63 /min Ana Tillman MD Work Phone: [facility] 12-16-2023 09:32-0400 Systolic blood pressure 172 mm[Hg] Ana Tillman MD Work Phone: [facility] 12-17-2022 09:22-0400 Body height 165.1 cm Ana Tillman MD Work Phone: [facility] 12-17-2022 09:22-0400 Body weight 58.97 kg Ana Tillman MD Work Phone: [facility] 12-17-2022 09:22-0400 Diastolic blood pressure 70 mm[Hg] Ana Tillman MD Work Phone: [facility] 12-17-2022 09:22-0400 Heart rate 58 /min Ana Tillman MD Work Phone: [facility] 12-17-2022 09:22-0400 Systolic blood pressure 169 mm[Hg] Ana Tillman MD Work Phone: [facility] 03-31-2022 13:18-0500 Body height 165.1 cm Reina Afia RESIDENTIAL GLAZIER.BORING MACHINE OPERATOR Work Phone: [facility] 03-31-2022 13:18-0500 Body weight 57.15 kg Reina Afia RESIDENTIAL GLAZIER.BORING MACHINE OPERATOR Work Phone: [facility] 03-31-2022 13:18-0500 Diastolic blood pressure 81 mm[Hg] Reina Afia RESIDENTIAL GLAZIER.BORING MACHINE OPERATOR Work Phone: [facility] 03-31-2022 13:18-0500 Heart rate 65 /min Reina Afia RESIDENTIAL GLAZIER.BORING MACHINE OPERATOR Work Phone: [facility] 03-31-2022 13:18-0500 Systolic blood pressure 159 mm[Hg] Reina Afia RESIDENTIAL GLAZIER.BORING MACHINE OPERATOR Work Phone: [facility] 12-25-2021 12:59-0400 Body height 165.1 cm Ana Tillman MD Work Phone: [facility] 12-25-2021 12:59-0400 Body weight 56.43 kg Ana Tillman MD Work Phone: [facility] 12-25-2021 12:59-0400 Diastolic blood pressure 75 mm[Hg] Ana Tillman MD Work Phone: [facility] 12-25-2021 12:59-0400 Heart rate 54 /min Ana Tillman MD Work Phone: [facility] 12-25-2021 12:59-0400 Systolic blood pressure 180 mm[Hg] Ana Tillman MD Work Phone: [facility] 12-14-2021 17:40-0400 Diastolic blood pressure 75 mm[Hg] [facility] Work Phone: 12-14-2021 17:40-0400 Heart rate 109 /min [facility] Work Phone: 12-14-2021 17:40-0400 Respiratory rate 63 /min [facility] Work Phone: 12-14-2021 17:40-0400 SaO2% (BldA) [Mass fraction] 99 % [facility] Work Phone: 12-14-2021 17:40-0400 Systolic blood pressure 136 mm[Hg] [facility] Work Phone: 12-14-2021 16:21-0400 Body temperature 98 [degF] [facility] Work Phone: 12-14-2021 12:21-0400 Body height 165.1 cm [facility] Work Phone: 12-14-2021 12:21-0400 Body mass index (BMI) [Ratio] 21.6 kg/m2 [facility] Work Phone: 12-14-2021 12:21-0400 Body weight 59 kg [facility] Work Phone: 11-07-2021 05:27-0400 Diastolic blood pressure 87 mm[Hg] [facility] Work Phone: 11-07-2021 05:27-0400 Heart rate 74 /min [facility] Work Phone: 11-07-2021 05:27-0400 Respiratory rate 20 /min [facility] Work Phone: 11-07-2021 05:27-0400 SaO2% (BldA) [Mass fraction] 99 % [facility] Work Phone: 11-07-2021 05:27-0400 Systolic blood pressure 148 mm[Hg] [facility] Work Phone: 11-07-2021 04:25-0400 Inhaled oxygen concentration 2 % [facility] Work Phone: 11-07-2021 04:25-0400 Inhaled oxygen flow rate 99 L/min [facility] Work Phone: 11-07-2021 00:30-0400 Body height 165.1 cm [facility] Work Phone: 11-07-2021 00:30-0400 Body mass index (BMI) [Ratio] 21.4 kg/m2 [facility] Work Phone: 11-07-2021 00:30-0400 Body temperature 97.1 [degF] [facility] Work Phone: 11-07-2021 00:30-0400 Body weight 58.51 kg [facility] Work Phone: 11-05-2021 13:26-0400 Heart rate 47 /min [facility] Work Phone: 11-05-2021 13:26-0400 Respiratory rate 13 /min [facility] Work Phone: 11-05-2021 13:26-0400 SaO2% (BldA) [Mass fraction] 100 % [facility] Work Phone: 11-05-2021 11:30-0400 Body mass index (BMI) [Ratio] 21.2 kg/m2 [facility] Work Phone: 11-05-2021 11:30-0400 Body temperature 96.8 [degF] [facility] Work Phone: 11-05-2021 11:30-0400 Body weight 58.05 kg [facility] Work Phone: 11-05-2021 11:30-0400 Diastolic blood pressure 69 mm[Hg] [facility] Work Phone: 11-05-2021 11:30-0400 Systolic blood pressure 149 mm[Hg] [facility] Work Phone: 10-20-2021 11:08-0400 Diastolic blood pressure 74 mm[Hg] [facility] Work Phone: 10-20-2021 11:08-0400 Heart rate 63 /min [facility] Work Phone: 10-20-2021 11:08-0400 Respiratory rate 16 /min [facility] Work Phone: 10-20-2021 11:08-0400 SaO2% (BldA) [Mass fraction] 98 % [facility] Work Phone: 10-20-2021 11:08-0400 Systolic blood pressure 125 mm[Hg] [facility] Work Phone: 10-20-2021 09:00-0400 Body height 165.1 cm [facility] Work Phone: 10-20-2021 09:00-0400 Body mass index (BMI) [Ratio] 21.2 kg/m2 [facility] Work Phone: 10-20-2021 09:00-0400 Body temperature 97.7 [degF] [facility] Work Phone: 10-20-2021 09:00-0400 Body weight 58.05 kg [facility] Work Phone: Encounters Encounter Date Encounter Type Care Provider Facility Start: 07-06-2024 End: 07-07-2024 Refill Ana Tillman MD Work Phone: Cardiology Comment on above: Refill Request Start: 07-03-2024 End: 07-03-2024 Orders Only Ana Tillman MD Work Phone: Cardiology Comment on above: AF (paroxysmal atria l fibrillation) (HCC) (Primary Dx) Medication Problem Start: 12-16-2023 End: 12-16-2023 Patient encounter procedure Ana Tillman MD Work Phone: Cardiology Comment on above: Palpitations (Primar y Dx); Paroxysmal atrial fibrillation (HCC) Start: 12-16-2023 End: 12-16-2023 ambulatory ANA TILLMAN Facility:[facility] Start: 10-07-2023 Orders Only Ana Weiss Work Phone: Cardiology Comment on above: AF (paroxysmal atria l fibrillation) (HCC) (Primary Dx) Start: 10-05-2023 ambulatory [facility] Facility: [facility] Start: 09-28-2023 End: 09-28-2023 Emergency department patient visit [facility] Facility:[facility] Start: 12-17-2022 End: 12-17-2022 Patient encounter procedure Ana Tillman MD Work Phone: Cardiology Comment on above: AF (paroxysmal atria l fibrillation) (HCC) (Primary Dx) Start: 07-13-2022 Orders Only Ana Weiss Work Phone: Cardiology Comment on above: Paroxysmal atrial fi brillation (HCC) (Primary Dx) Start: 03-31-2022 End: 03-31-2022 ambulatory [facility] Work Phone: Cardiology Comment on above: Event (ZIO PATCH) Start: 03-31-2022 End: 03-31-2022 Patient encounter procedure Reina Oreilly KATIE Work Phone: Cardiology Comment on above: Paroxysmal atrial fi brillation (HCC) (Primary Dx); Hypothyroidism, unspecified type; Palpitations; Chronic anticoagulation Start: 03-30-2022 Arrhythmia TTM Ana Weiss Work Phone: [facility] Department Start: 03-30-2022 Recurring Plan Ana Weiss Work Phone: [facility] Start: 03-16-2022 Arrhythmia TTM Ana Weiss Work Phone: [facility] Department Start: 03-16-2022 Recurring Plan Ana Weiss Work Phone: [facility] Start: 03-10-2022 Telephone encounter Ana canales MD Work Phone: Cardiology Comment on above: Medication Problem Start: 03-06-2022 Arrhythmia TTM Ana Weiss Work Phone: [facility] Department Start: 03-06-2022 Recurring Plan Ana Weiss Work Phone: [facility] Start: 02-16-2022 Arrhythmia TTM Ana Weiss Work Phone: [facility] Start: 02-16-2022 Recurring Plan Ana Weiss Work Phone: [facility] Start: 02-04-2022 Arrhythmia TTM Ana Weiss Work Phone: [facility] Start: 02-04-2022 Recurring Plan Ana Weiss Work Phone: [facility] Start: 01-29-2022 Arrhythmia TTM Ana Weiss Work Phone: [facility] Start: 01-29-2022 Recurring Plan Ana Weiss Work Phone: [facility] Start: 01-22-2022 Arrhythmia TTM Ana Weiss Work Phone: [facility] Start: 01-22-2022 Recurring Plan Ana Weiss Work Phone: [facility] Start: 01-19-2022 Arrhythmia TTM Ana Weiss Work Phone: [facility] Start: 01-19-2022 Recurring Plan Ana Weiss Work Phone: [facility] Start: 01-12-2022 Arrhythmia TTM Ana Weiss Work Phone: [facility] Start: 01-12-2022 Recurring Plan Ana Weiss Work Phone: [facility] Start: 01-09-2022 Orders Only Lisa Camp nd RESIDENTIAL GLAZIER.BORING MACHINE OPERATOR Work Phone: Cardiology Comment on above: Persistent atrial fi brillation (HCC) (Primary Dx) Start: 01-06-2022 Arrhythmia TTM Ana Weiss Work Phone: [facility] Start: 01-06-2022 Recurring Plan Ana Weiss Work Phone: [facility] Start: 01-01-2022 Arrhythmia TTM Ana Weiss Work Phone: [facility] Start: 01-01-2022 Recurring Plan Ana Weiss Work Phone: [facility] Start: 12-29-2021 ambulatory Ana Weiss Work Phone: Cardiology Comment on above: Bruise Start: 12-29-2021 Telephone encounter Ana canales MD Work Phone: Cardiology Comment on above: Patient Question Start: 12-26-2021 ambulatory Ana Weiss Work Phone: Cardiology Comment on above: Transmitter (90 days ) Start: 12-25-2021 ambulatory Ana Weiss Work Phone: Cardiology Comment on above: Patient Education (E P: PVI) Start: 12-25-2021 End: 12-25-2021 Patient encounter procedure Ana Tillman MD Work Phone: Cardiology Comment on above: AF (paroxysmal atria l fibrillation) (HCC) (Primary Dx) Start: 12-25-2021 End: 12-25-2021 Subsequent hospital visit by physician Tiffany Blanco (I-Stat) Work Phone: Radiology Comment on above: Persistent atrial fi brillation (HCC) [I48.19] Start: 12-15-2021 Telephone encounter Ara Le MD Work Phone: Cardiology Comment on above: Medication Review (T alana Sensitive/) Start: 12-14-2021 End: 12-14-2021 [facility] Start: 11-27-2021 End: 11-27-2021 [facility] Start: 11-11-2021 Telephone encounter Ana canales MD Work Phone: Cardiology Comment on above: Schedule Surgery (PV I ablation) AF (paroxysmal atria l fibrillation) (HCC) (Primary Dx) Start: 11-07-2021 Orders Only Kaylyn Cottrell RN Card iology Comment on above: Persistent atrial fi brillation (HCC) (Primary Dx) Start: 11-07-2021 End: 11-07-2021 [facility] Start: 11-05-2021 End: 11-05-2021 [facility] Start: 10-24-2021 Telephone encounter Ara Le MD Work Phone: Cardiology Comment on above: Patient Update Received Outside [facility] Records Start: 10-20-2021 End: 10-20-2021 [facility] Start: 09-09-2021 Orders Only Ara Le MD Work Phone: [facility] Comment on above: Results (Zio patch r esults ) Start: 08-15-2021 End: 08-15-2021 Subsequent hospital visit by physician Card Injection Molecular Imaging Start: 08-13-2021 Telephone encounter Ara Le MD Work Phone: Cardiology Comment on above: Patient Update Start: 07-25-2021 End: 07-25-2021 Emergency department patient visit [facility] Procedures Date Procedure Procedure Detail Performing Clinician Start: 03-30-2022 ARRHYTHMIA TRANS TEL E MEASURE Ana Tillman MD Work Phone: Start: 03-16-2022 ARRHYTHMIA TRANS TEL E MEASURE Ana Tillman MD Work Phone: Start: 03-06-2022 ARRHYTHMIA TRANS TEL E MEASURE Ana Tillman MD Work Phone: Start: 02-16-2022 ARRHYTHMIA TRANS TEL E MEASURE Ana Tillman MD Work Phone: Start: 02-04-2022 ARRHYTHMIA TRANS TEL E MEASURE Ana Tillman MD Work Phone: Start: 01-29-2022 ARRHYTHMIA TRANS TEL E MEASURE Ana Tillman MD Work Phone: Start: 01-22-2022 ARRHYTHMIA TRANS TEL E MEASURE Ana Tillman MD Work Phone: Start: 01-19-2022 ARRHYTHMIA TRANS TEL E MEASURE nAa Tillman MD Work Phone: Start: 01-12-2022 ARRHYTHMIA TRANS TEL E MEASURE Ana Tillman MD Work Phone: Start: 01-06-2022 ARRHYTHMIA TRANS TEL E MEASURE Ana Tillman MD Work Phone: Start: 01-01-2022 ARRHYTHMIA TRANS TEL E MEASURE Ana Tillman MD Work Phone: Start: 12-25-2021 Ct heart contrast ev al cardiac structure&morph Kaylyn Cottrell RN Start: 12-14-2021 Plain chest X-ray Start: 10-20-2021 Plain chest X-ray Start: 08-15-2021 Myocardial spect mul tiple studies Ara Le MD Work Phone: Start: 07-06-2014 Mammography Ara gallagher MD Work Phone: Plan of Treatment Date Care Activity Detail Author Start: 12-22-2024 DIABETES SCREEN DIABETES SCREEN [facility] Start: 12-22-2024 Diabetes Screening Diabetes Screenin g [facility] Start: 12-21-2024 End: 12-21-2024 Patient encounter procedure Cardiology Comment on above: Dx: A-fib Start: 04-13-2024 End: 04-13-2024 Patient encounter procedure 04/13/2024 9:15 AM EST Office Visit Cardiology [address] [place] [address] Ana Tillman MD [address] [place] [address] DX: AF Cardiology Comment on above: DX: AF Start: 04-13-2024 End: 04-13-2024 ambulatory 04/13/2024 8:30 AM EST Results Only Cardiology [address] [place] [address] EKG Cardiology Comment on above: EKG Start: 01-02-2024 Covid-19 Vaccine ( season) Covid-19 Vaccine ( season) [facility] Start: 01-02-2024 [facility] Start: 05-03-2023 Behavioral Health Screening Behavioral Health Screening [facility] Start: 01-01-2023 Covid-19 Vaccine ( season) Covid-19 Vaccine ( season) [facility] Start: 01-01-2023 Influenza vaccination INFLUENZA (#1) [facility] Start: 05-03-2022 DEPRESSION ASSESSMENT DEPRESSION ASS ESSMENT [facility] Start: 01-01-2022 [facility] Start: 11-08-2021 End: 11-07-2022 CBC panel - Blood by Automated count CBC Lab STAT Persistent atrial fibrillation (HCC) Expected: 11/08/2021, Expires: 11/07/2022 [facility] Work Phone: Comment on above: Expected: 11/08/2021 , Expires: 11/07/2022 Start: 11-07-2021 End: 11-07-2022 Basic metabolic 2000 panel - Serum or Plasma BASIC METABOLIC PNL Lab Routine Persistent atrial fibrillation (HCC) Expected: 11/07/2021, Expires: 11/07/2022 [facility] Work Phone: Comment on above: Expected: 11/07/2021 , Expires: 11/07/2022 Start: 11-07-2021 End: 11-07-2022 CREATININE BLD CREATININE BLD Lab Routine Persistent atrial fibrillation (HCC) Expected: 11/07/2021, Expires: 11/07/2022 [facility] Work Phone: Comment on above: Expected: 11/07/2021 , Expires: 11/07/2022 Start: 11-07-2021 End: 11-07-2022 SARS-CoV-2 (COVID-19) RNA [Presence] in Respiratory specimen by HERVE with probe detection PRE-PROCEDURE & PRE-OPERATIVE COVID Microbiology Routine Persistent atrial fibrillation (HCC) Expected: 11/07/2021, Expires: 11/07/2022 [facility] Work Phone: Comment on above: Expected: 11/07/2021 , Expires: 11/07/2022 Start: 11-07-2021 End: 11-07-2022 TYPE AND SCREEN,30 DAY TYPE AND SCREEN,30 DAY Blood Bank Routine Persistent atrial fibrillation (HCC) Expected: 11/07/2021, Expires: 11/07/2022 [facility] Work Phone: Comment on above: Expected: 11/07/2021 , Expires: 11/07/2022 Start: 10-20-2021 Blood chemistry [facility] Work Phone: Start: 10-20-2021 Thyroid stimulating hormone measurement [facility] Work Phone: Start: 10-20-2021 End: 10-20-2021 [facility] Work Phone: Start: 05-03-2021 DEPRESSION ASSESSMENT DEPRESSION ASS ESSMENT [facility] Start: 2019 RSV Vaccine (1 - 1-d ose 60+ series) RSV Vaccine (1 - 1-dose 60+ series) [facility] Start: 2019 RSV Vaccine (1 - Ris k 60-74 years 1-dose series) RSV Vaccine (1 - Risk 60-74 years 1-dose series) [facility] Start: 11-22-2015 DIABETES SCREEN DIABETES SCREEN [facility] Start: 07-07-2015 Mammography MAMMOGRAM [facility] Start: 07-07-2015 Screening for malign ant neoplasm of breast Mammogram Screening [facility] Start: 11-22-2009 SHINGRIX VACCINE (1 of 2) CHRISTIANSON GRIX VACCINE (1 of 2) [facility] Start: 11-22-2004 COLOGUARD (FIT-DNA) COLOGUARD (FIT-D NA) [facility] Start: 11-22-2004 Colonoscopy COLONOSCOPY [facility] Start: 11-22-2004 COLORECTAL CANCER SCREENING COLORECTAL CANCER SCREENING [facility] Start: 11-22-[address] COLONOGRAPHY [facility] Start: 11-22-2004 FECAL OCCULT BLOOD FECAL OCCULT BLOO D [facility] Start: 11-22-2004 Lipid panel Lipid Screening [facility] Start: 11-22-2004 LIPID SCREEN LIPID SCREEN [facility] Start: 11-22-2004 Screening for malign ant neoplasm of colon [facility] Start: 11-22-2004 SIGMOIDOSCOPY SIGMOIDOSCOPY [facility] Start: 11-22-1989 HPV TESTING HPV TESTING [facility] Start: 11-22-1989 Screening for malign ant neoplasm of cervix HPV Testing [facility] Start: 11-22-1980 PAP TESTING PAP TESTING [facility] Start: 11-22-1980 Screening for malign ant neoplasm of cervix [facility] Start: 11-22-1978 Pneumococcal Vaccine : 50+ (1 of 2 - PCV) Pneumococcal Vaccine: 50+ (1 of 2 - PCV) [facility] Start: 11-22-1978 SHINGRIX VACCINE (1 of 2) CHRISTIANSON GRIX VACCINE (1 of 2) [facility] Start: 11-22-1978 Urine microalbumin profile [facility] Start: 11-22-1977 ANNUAL PCP TEAM FINANCIAL PLANNING ASSISTANT KELIN DISEASE VISIT ANNUAL PCP TEAM CHRONIC DISEASE VISIT [facility] Start: 11-22-1977 Anxiety Screening Anxiety Screening [facility] Start: 11-22-1977 BP Controlled (<130/80) BP Controlle d (<130/80) [facility] Start: 11-22-1977 Depression Screening Depression Scre ening [facility] Start: 11-22-1977 Hepatitis B surface antibody level LDL Cholesterol [facility] Start: 11-22-1977 HEPATITIS C SCREENING HEPATITIS C [facility] Start: 11-22-1977 Hepatitis C screening Hepatitis C [facility] Start: 11-22-1977 HIV SCREENING HIV SCREENING [facility] Start: 11-22-1977 HIV screening HIV Screening [facility] Start: 11-22-1977 Spirometry Spirometry [facility] Start: 1971 Adult depression scr eening assessment DEPRESSION SCREENING [facility] Start: 11-22-1969 Diabetic foot examination Diabetic F oot Exam [facility] Start: 11-22-1969 Glaucoma screening Dilated Retinal E xam [facility] Start: 11-22-1969 Hepatitis B screening Urine Albumin:Creatinine Ratio [facility] Start: 11-22-1965 PNEUMOCOCCAL (1 - PCV) PNEUMOCOCCAL (1 - PCV) [facility] Start: 11-22-1965 Pneumococcal vaccination Pneum ococcal Vaccine (1 of 2 - PCV) [facility] Start: 11-22-1964 COVID-19 VACCINE (#1) COVID-19 VACCI NE (#1) [facility] Start: 11-22-1964 COVID-19 VACCINE (1) COVID-19 VACCIN E (1) [facility] Start: 11-22-1964 Hemoglobin A1c measurement HbA1C [facility] [facility] Start: 05-25-1961 COVID-19 VACCINE (#1) COVID-19 VACCI NE (#1) [facility] End: 12-07-2022 Ct heart contrast eval cardiac structure&morph CT PULMONARY VEIN W IVCON Radiology Routine Persistent atrial fibrillation (HCC) 1 Occurrences starting 11/07/2021 until 12/07/2022 [facility] Work Phone: Comment on above: 1 Occurrences starti ng 11/07/2021 until 12/07/2022 End: 11-11-2022 ECG COMPLETE ECG COMPLETE ECG Routine AF (paroxysmal atrial fibrillation) (HCC) 1 Occurrences starting 11/11/2021 until 11/11/2022 [facility] Work Phone: Comment on above: 1 Occurrences starti ng 11/11/2021 until 11/11/2022 End: 01-09-2023 ECG COMPLETE ECG COMPLETE ECG Routine Persistent atrial fibrillation (HCC) 1 Occurrences starting 01/09/2022 until 01/09/2023 [facility] Work Phone: Comment on above: 1 Occurrences starti ng 01/09/2022 until 01/09/2023 End: 07-14-2023 ECG COMPLETE ECG COMPLETE ECG Routine Paroxysmal atrial fibrillation (HCC) 1 Occurrences starting 07/13/2022 until 07/14/2023 [facility] Work Phone: Comment on above: 1 Occurrences starti ng 07/13/2022 until 07/14/2023 End: 10-05-2024 ECG COMPLETE ECG COMPLETE ECG Routine AF (paroxysmal atrial fibrillation) (HCC) 1 Occurrences starting 10/06/2023 until 10/05/2024 [facility] Work Phone: Comment on above: 1 Occurrences starti ng 10/06/2023 until 10/05/2024 End: 07-03-2025 ECG COMPLETE ECG COMPLETE ECG Routine AF (paroxysmal atrial fibrillation) (HCC) 1 Occurrences starting 07/03/2024 until 07/03/2025 [facility] Work Phone: Comment on above: 1 Occurrences starti ng 07/03/2024 until 07/03/2025 End: 01-09-2023 Echocardiography ECHO Cardiology Routine Persistent atrial fibrillation (HCC) 1 Occurrences starting 01/09/2022 until 01/09/2023 [facility] Work Phone: Comment on above: 1 Occurrences starti ng 01/09/2022 until 01/09/2023 OUTSIDE VENDOR CARDI AC OUTPATIENT EXTENDED RHYTHM RECORDING (WITHOUT TELEMETRY) OUTSIDE VENDOR CARDIAC OUTPATIENT EXTENDED RHYTHM RECORDING (WITHOUT TELEMETRY) Holter Routine Paroxysmal atrial fibrillation (HCC) Ordered: 03/31/2022 [facility] Work Phone: Comment on above: Ordered: 03/31/2022 Patient Education ED AFIB [facility] Work Phone: Patient referral [facility] Work Phone: [facility] Immunizations Immunization Date Immunization Notes Care Provider Fa ciliolinda 02-27-2009 influenza virus vacc ine, unspecified formulation Ana Tillman MD Work Phone: [facility] Payers Date Payer Category Payer [place] [facility] [id number] 2023 Self-pay [id number] 2023 Unknown [id number] 2021 Unknown [employer] [place] [employer] [id number] 2021-Present [phone] [address] [place] [address] PPO [id number] 2021 Unknown [id number] Unknown [employer] [id number] Unknown [employer] [id number] Unknown [id number] Unknown [id number] Unknown [id number] Social History Date Type Detail Facility Start: 08-04-[address] [facility] Start: 05-03-1978 End: 05-03-1988 History of tobacco use Current smoker [facility] Start: 05-03-1978 End: 05-03-1988 History of tobacco use Cigarette Smoker [facility] Start: 07-23-2021 Alcohol intake Current drinke r of alcohol (finding) [facility] Start: 1960 Sex Assigned At Not on file [facility] Start: 07-13-2021 End: 03-31-2022 Exposure to SARS-CoV-2 (event) Not sure [facility] Start: 10-20-2021 End: 12-14-2021 Tobacco smoking status NHIS Unknown if ever smoked [facility] Work Phone: Start: 1960 Sex Assigned At Female [facility] Work Phone: Start: 11-01-2021 End: 01-28-2022 Exposure to SARS-CoV-2 (event) Unable to assess [facility] Work Phone: Start: 08-04-2011 End: 12-17-2022 Cigarettes smoked current (pack per day) - Reported 0.5 [facility] Start: 08-04-2011 Tobacco use and exposure Smokeless tobacco non-user [facility] Start: 12-25-2021 End: 12-16-2023 Alcohol intake Ex-drinker (finding) [facility] Start: 12-17-2022 End: 12-16-2023 Tobacco use panel [facility] National Score (1-10 0), lower number is lower risk 64 [facility] Medical Equipment Procedure Code Equipment Code Equipment Original Text Equipment Identifier Dates Expand Tiss Styl e 133mv 600cc - [id number] Start: 07-03-2009 Comment on above: Description: 133mv T issue Emergency Communications Officer Expand Tiss Styl e 133mv 500cc - [id number] Start: 11-20-2009 Comment on above: Description: filled to 500cc w/ normal saline inj. Graft Alloderm 4x16cm Thick - [id number] Start: 07-03-2009 Comment on above: Description: AlloDer m Regenerative Tissue Matrix Graft Alloderm 4x12cm Thick - [id number] Start: 11-20-2009 Comment on above: Description: Thick a lloderm Imp Brst 700ml Styl 20 Smth - [id number] Start: 05-22-2010 Comment on above: Description: Natrell e silicon filled breast implant. Smooth, round, high profile Mesh Srg Prol 6x6in Paramjit Nabsb - [id number] Start: 11-21-2010 Goals Date Patient Goal Desired Activity /State Personal health goal Functional Status Date Assessment Result Facility 07-06-2014 Are you deaf, or do you have serious difficulty hearing No 07/06/2014 2:42 PM Jerilyn Gupta MA No [facility] 07-06-2014 Are you blind, or do you have serious difficulty seeing, even when wearing glasses No 07/06/2014 2:42 PM Jerilyn Gupta MA No [facility] 07-06-2014 Do you have serious difficulty walking or climbing stairs No 07/06/2014 2:42 PM Jerilyn Gupta MA No [facility] 07-06-2014 Do you have difficul ty dressing or bathing No 07/06/2014 2:42 PM Jerilyn Gupta MA No [facility] 07-06-2014 Because of a physica l, mental, or emotional condition, do you have difficulty doing errands alone such as visiting a physician's office or shopping No 07/06/2014 2:42 PM Jerilyn Gupta MA [facility] Mental Status Date Assessment Result Facility 12-14-2021 Cognitive function Level Of Cons ciousness Awake;Alert;Appropriate;Fol lows Commands [facility] Work Phone: 11-07-2021 Cognitive function Awake;Alert;A ppropriate;Fol lows Commands [facility] Work Phone: 11-05-2021 Cognitive function Level Of Cons ciousness Awake;Alert;Appropriate;Fol lows Commands [facility] Work Phone: 10-20-2021 Cognitive function Voice/Name [facility] Work Phone: 07-06-2014 Because of a physica l, mental, or emotional condition, do you have serious difficulty concentrating, remembering, or making decisions No 07/06/2014 2:42 PM Jerilyn Gupta MA [facility] Clinical Notes 08-13-2021 to 07-03-2024 Telephone Encounter - Dia Vila RN - 07/03/2024 4:12 PM ESTTelephone Encounter - Dia Vila RN - 07/03/2024 4:12 PM ESTTelephone Encounter - Yara Caba - 07/03/2024 3:39 PM EST Note Date & Type Note Facility 07-03-2024 Telephone encounter Note Contacted the patient. She reports has had had more wheezing. She believes it is related to asthma. Will review with Dr. Tillman. Dia Vila RN [facility] 07-03-2024 Miscellaneous Notes Contacted the patient. She reports has had had more wheezing. She believes it is related to asthma. Will review with Dr. Tillman. Dia Vila RN July 03, 2024 Patient Contact Number: [phone] (home) [phone] (work) [phone] (cell) Patient last seen within the last year Yes Reason For Call: Medication Issue/Question:metoprolol is affecting her asthma wondering if there is another med to take Physician:Ana Tillman MD, MPH documented in this encounter [facility] 07-03-2024 Telephone encounter Note July 03, 2024 Patient Contact Number: [phone] (home) [phone] (work) [phone] (cell) Patient last seen within the last year Yes Reason For Call: Medication Issue/Question:metoprolol is affecting her asthma wondering if there is another med to take Physician:Ana Tillman MD, MPH [facility] 12-16-2023 History of Presen t illness Narrative [facility] Department of Cardiovascular Medicine SECTION OF CARDIAC PACING and ELECTROPHYSIOLOGY OUTPATIENT VISIT DATE December 16, 2023 OUTPATIENT VISIT TYPE ESTABLISHED PRIMARY CARE PHYSICIAN: Tere Muro MD ([facility]) [address] [place] [address] REFERRING PHYSICIAN: Ana Tillman [address] [facility] [address] CHIEF COMPLAINT: F/u HISTORY OF PRESENT ILLNESS: Ms. Mcgill is a 63 year old female who presents today for follow-up visit for atrial fibrillation and SVT. She was last seen in office 12/17/2022. She has a past medical history of hypertension, SVT, paroxysmal atrial fibrillation, hypothyroidism, diabetes, breast cancer s/p mastectomy/chemo/XRT 2009, and asthma. She had a PVI 12/26/2021. At the time of her last visit she had worn a zio revealing short runs of SVT. She reported feeling okay and that she continued to have episodes of palpitations once a day for several seconds which terminated with holding her breath. She has continued on apixaban and metoprolol. She had an episode last month where she woke up around 3 AM with palpitations. It lasted a minute or two. She continues to have flutters off and on but they are overall not bothersome. She can also cough to get them to stop. She feels exercising seems to cause them to be less frequent. She denies chest pain, shortness of breath, orthopnea, cough, edema, PND, lightheadedness or syncope. CHADS2-Vasc Score Breakdown 3 Total Score 1 Female 1 History of hypertension 1 History of diabetes mellitus PAST MEDICAL HISTORY No date: Asthma 12/16/2023: Atrial fibrillation (HCC) 04/2021: COVID-19 No date: Diabetes mellitus (HCC) No date: Hypothyroidism 04/02/2009: Malignant neoplasm of breast (female), unspecified site Comment: right, s/p XRT No date: Paroxysmal atrial fibrillation (HCC) No date: SVT (supraventricular tachycardia) (HCC) No date: Unspecified essential hypertension Comment: Essential hypertensionPAST SURGICAL HISTORY 12/26/2021: ABLATION A-FIB BY PVI No date: BIOPSY BREAST OPEN INCISIONAL Comment: Bx of breast, incisional 11/21/2010: BREAST RECONSTRUCTION Comment: Left pedicle TRAM flap and right mastopexy. 07/03/2009: MASTECTOMY, SIMPLE, COMPLETE Comment: Left simple mastectomy, sentinel lymph node biopsy, removal of a portion of the pectoralis muscle SOCIAL HISTORY Social History Tobacco Use Smoking status: Former Packs/day: 0.50 Years: 10.00 Additional pack years: 0.00 Total pack years: 5.00 Types: Cigarettes Quit date: 05/03/1988 Years since quittin.6 Smokeless tobacco: Never Vaping Use Vaping Use: Never used Substance Use Topics Alcohol use: Not Currently Drug use: No FAMILY HISTORY Problem Relation Age of Onset Breast Cancer Other distant maternal relative, age unknown other (atypical ductal hyperplasia [Other]) Mother other (dm [Other]) Mother Stroke Paternal Grandmother age46 Stroke Father age71 Diabetes Mother ALLERGIES: ALLERGIES Allergen Reactions Adhesive Tape (Velma* Rash Patient also had redness and itching from surgical EKG patch. Flexeril [Cyclobenz* Shortness of Breath Levoxyl [Levothyrox* Hives MEDICATIONS: metoprolol succinate ER (TOPROL XL) 25 mg 24 hr tablet Take 12.5 mg by mouth twice daily. LEVALBUTEROL TARTRATE INHALATION Inhale 1-2 Puffs as instructed four times daily as needed. TOOL DESIGNER THYROID 60 mg Take 60 mg by mouth once daily. metFORMIN ER (GLUCOPHAGE XR) 500 mg 24 hr tablet Take 500 mg by mouth twice daily. apixaban (ELIQUIS) 5 mg tab(s) Take 5 mg by mouth twice daily. Cholecalciferol, Vitamin D3, 25 mcg (1,000 unit) chew Take 3 tablets by mouth once daily. multivitamins(DAILY MULTIVITAMIN TAB) Take one(1) tablet daily. Scarlett Pang RN PHYSICAL EXAMINATION: BP 172/68 Pulse 63 Ht 165.1 cm (5' 5) Wt 56.2 kg (124 lb) LMP 07/03/2009 BMI 20.63 kg/m General: Looks well; pleasant and cooperative Neck: No carotid bruits, JVP normal Lungs: Clear to auscultation Cardiac: Regular rate and rhythm, no murmurs, rubs, gallops or clicks Abdomen: Soft, nontender, nondistended, no bruits Extremities: No cyanosis, clubbing, or edema; extremeties are warm Neurologic: A & O x 3; normal gait CARDIOVASCULAR MEDICINE TESTING: Zio 03/31/2022-04/14/2022 Patient had a min HR of 52 bpm, max HR of 193 bpm, and avg HR of 66 bpm. Predominant underlying rhythm was Sinus Rhythm. 87 Supraventricular Tachycardia runs occurred, the run with the fastest interval lasting 7 beats with a max rate of 193 bpm, the longest lasting 17 beats with an avg rate of 123 bpm. Supraventricular Tachycardia was detected within +/- 45 seconds of symptomatic patient event(s). Isolated SVEs were rare (<1.0%), SVE Couplets were rare (<1.0%), and SVE Triplets were rare (<1.0%). Isolated VEs were rare (<1.0%, 1037), VE Couplets were rare (<1.0%, 3), and VE Triplets were rare (<1.0%, 1). Last EKG Result Conclusion ECG COMPLETE Collected: 12/16/2023 7:52 AM (Preliminary result) Impression: SINUS RHYTHM WITH PREMATURE ATRIAL COMPLEXES ANTERIOR MYOCARDIAL INFARCTION , AGE UNDETERMINED ABNORMAL ECG IMPRESSION: AF: Doing well post PVI 12/2021. She has occasional palpitations a few times per week. She wore a ZIO last April and this showed short, nonsustained SVT episodes. WIll continue as is. RTC 1Y. Ana Tillman MD, MPH documented in this encounter [facility] 12-16-2023 Note HNO ID: [id number] Author: ANA TILLMAN MD Service: ? Author Type: Physician Type: Progress Notes Filed: 12/16/2023 10:54 Note Text: [facility] Department of Cardiovascular Medicine SECTION OF CARDIAC PACING and ELECTROPHYSIOLOGY OUTPATIENT VISIT DATE December 16, 2023 OUTPATIENT VISIT TYPE ESTABLISHED PRIMARY CARE PHYSICIAN: Tere Muro MD ([facility]) [address] [place] [address] REFERRING PHYSICIAN: Ana Tillman [address] [facility] [address] CHIEF COMPLAINT: F/u HISTORY OF PRESENT ILLNESS: Ms. Mcgill is a 63 year old female who presents today for follow-up visit for atrial fibrillation and SVT. She was last seen in office 12/17/2022. She has a past medical history of hypertension, SVT, paroxysmal atrial fibrillation, hypothyroidism, diabetes, breast cancer s/p mastectomy/chemo/XRT 2009, and asthma. She had a PVI 12/26/2021. At the time of her last visit she had worn a zio revealing short runs of SVT. She reported feeling okay and that she continued to have episodes of palpitations once a day for several seconds which terminated with holding her breath. She has continued on apixaban and metoprolol. She had an episode last month where she woke up around 3 AM with palpitations. It lasted a minute or two. She continues to have flutters off and on but they are overall not bothersome. She can also cough to get them to stop. She feels exercising seems to cause them to be less frequent. She denies chest pain, shortness of breath, orthopnea, cough, edema, PND, lightheadedness or syncope. CHADS2-Vasc Score Breakdown 3 Total Score 1 Female 1 History of hypertension 1 History of diabetes mellitus PAST MEDICAL HISTORY No date: Asthma 12/16/2023: Atrial fibrillation (HCC) 04/2021: COVID-19 No date: Diabetes mellitus (HCC) No date: Hypothyroidism 04/02/2009: Malignant neoplasm of breast (female), unspecified site Comment: right, s/p XRT No date: Paroxysmal atrial fibrillation (HCC) No date: SVT (supraventricular tachycardia) (HCC) No date: Unspecified essential hypertension Comment: Essential hypertensionPAST SURGICAL HISTORY 12/26/2021: ABLATION A-FIB BY PVI No date: BIOPSY BREAST OPEN INCISIONAL Comment: Bx of breast, incisional 11/21/2010: BREAST RECONSTRUCTION Comment: Left pedicle TRAM flap and right mastopexy. 07/03/2009: MASTECTOMY, SIMPLE, COMPLETE Comment: Left simple mastectomy, sentinel lymph node biopsy, removal of a portion of the pectoralis muscle SOCIAL HISTORY Social History Tobacco Use Smoking status: Former Packs/day: 0.50 Years: 10.00 Additional pack years: 0.00 Total pack years: 5.00 Types: Cigarettes Quit date: 05/03/1988 Years since quittin.6 Smokeless tobacco: Never Vaping Use Vaping Use: Never used Substance Use Topics Alcohol use: Not Currently Drug use: No FAMILY HISTORY Problem Relation Age of Onset Breast Cancer Other distant maternal relative, age unknown other (atypical ductal hyperplasia [Other]) Mother other (dm [Other]) Mother Stroke Paternal Grandmother age46 Stroke Father age71 Diabetes Mother ALLERGIES: ALLERGIES Allergen Reactions Adhesive Tape (Velma* Rash Patient also had redness and itching from surgical EKG patch. Flexeril [Cyclobenz* Shortness of Breath Levoxyl [Levothyrox* Hives MEDICATIONS: metoprolol succinate ER (TOPROL XL) 25 mg 24 hr tablet Take 12.5 mg by mouth twice daily. LEVALBUTEROL TARTRATE INHALATION Inhale 1-2 Puffs as instructed four times daily as needed. TOOL DESIGNER THYROID 60 mg Take 60 mg by mouth once daily. metFORMIN ER (GLUCOPHAGE XR) 500 mg 24 hr tablet Take 500 mg by mouth twice daily. apixaban (ELIQUIS) 5 mg tab(s) Take 5 mg by mouth twice daily. Cholecalciferol, Vitamin D3, 25 mcg (1,000 unit) chew Take 3 tablets by mouth once daily. multivitamins(DAILY MULTIVITAMIN TAB) Take one(1) tablet daily. Scarlett Pang RN PHYSICAL EXAMINATION: BP 172/68 Pulse 63 Ht 165.1 cm (5' 5) Wt 56.2 kg (124 lb) LMP 07/03/2009 BMI 20.63 kg/m? General: Looks well; pleasant and cooperative Neck: No carotid bruits, JVP normal Lungs: Clear to auscultation Cardiac: Regular rate and rhythm, no murmurs, rubs, gallops or clicks Abdomen: Soft, nontender, nondistended, no bruits Extremities: No cyanosis, clubbing, or edema; extremeties are warm Neurologic: A AND O x 3; normal gait CARDIOVASCULAR MEDICINE TESTING: o 03/31/2022-04/14/2022 Patient had a min HR of 52 bpm, max HR of 193 bpm, and avg HR of 66 bpm. Predominant underlying rhythm was Sinus Rhythm. 87 Supraventricular Tachycardia runs occurred, the run with the fastest interval lasting 7 beats with a max rate of 193 bpm, the longest lasting 17 beats with an avg rate of 123 bpm. Supraventricular Tachycardia was detected within +/- 45 seconds of symptomatic patient (more content not included)... [facility] 12-17-2022 History of Presen t illness Narrative Images from the original note were not included. [facility] Department of Cardiovascular Medicine SECTION OF CARDIAC PACING and ELECTROPHYSIOLOGY OUTPATIENT VISIT DATE December 17, 2022 OUTPATIENT VISIT TYPE ESTABLISHED PRIMARY CARE PHYSICIAN: Tere Muro MD ([facility]) [address] [place] [address] REFERRING PHYSICIAN: No referring provider defined for this encounter. CHIEF COMPLAINT: F/u HISTORY OF PRESENT ILLNESS (includes edited nursing intake history): Olamide Mcgill is a 62 y/o female returning for follow up for atrial fibrillation s/p cryo PVI 12/26/21. She has a past medical history of hypertension, SVT, paroxysmal atrial fibrillation, hypothyroidism, diabetes, breast cancer s/p mastectomy/chemo/XRT 2009, and asthma. She was last seen in office by DEBRA Oreilly on 03/31/2022. She was given a Zio which revealed short runs of SVT. Overall she feels ok. She continues to have episodes of palpitations. They occur about once a day and lasts several seconds. It is terminated by holding her breath. She denies chest pain, shortness of breath, orthopnea, cough, edema, PND, lightheadedness or syncope. CHADS2-Vasc Score Breakdown 3 Total Score 1 Female 1 History of hypertension 1 History of diabetes mellitus 1. How often on average, does your irregular heart rhythm (atrial fibrillation) occur? Unable to tell 2. How long on average, do the episodes of the irregular heart rhythm last? N/a 3. How often have you been bothered by this symptom in the past 4 weeks? Palpitations: a little, Shortness of breath at rest: none, Shortness of breath during physical activity: none, Exercise intolerance (fatigue during mild physical activity): none, Fatigue at rest: none, Lightheadedness/dizziness: none, and Chest pain or pressure: none 4. Have you had an inpatient hospital admission within 30 days of your procedure? No Dia Vila RN PAST MEDICAL HISTORY Diagnosis Date Asthma COVID-19 04/2021 Diabetes mellitus (HCC) Hypothyroidism Malignant neoplasm of breast (female), unspecified site 04/02/2009 right, s/p XRT Paroxysmal atrial fibrillation (HCC) SVT (supraventricular tachycardia) (HCC) Unspecified essential hypertension Essential hypertension PAST SURGICAL HISTORY Procedure Laterality Date BIOPSY BREAST OPEN INCISIONAL Bx of breast, incisional BREAST RECONSTRUCTION 11/21/2010 Left pedicle TRAM flap and right mastopexy. MASTECTOMY, SIMPLE, COMPLETE 07/03/2009 Left simple mastectomy, sentinel lymph node biopsy, removal of a portion of the pectoralis muscle SOCIAL HISTORY Social History Tobacco Use Smoking status: Former Packs/day: 0.50 Years: 10.00 Additional pack years: 0.00 Total pack years: 5.00 Types: Cigarettes Quit date: 05/03/1988 Years since quittin.6 Smokeless tobacco: Never Vaping Use Vaping Use: Never used Substance Use Topics Alcohol use: Not Currently Drug use: No FAMILY HISTORY Problem Relation Age of Onset Breast Cancer Other distant maternal relative, age unknown other (atypical ductal hyperplasia [Other]) Mother other (dm [Other]) Mother Stroke Paternal Grandmother age46 Stroke Father age71 Diabetes Mother ALLERGIES: ALLERGIES Allergen Reactions Adhesive Tape (Velma* Rash Patient also had redness and itching from surgical EKG patch. Flexeril [Cyclobenz* Shortness of Breath Levoxyl [Levothyrox* Hives MEDICATIONS: fluticasone-salmeterol (ADVAIR DISKUS) 250-50 mcg/dose inhaler^Inhale 1 Puff as instructed once daily.^Disp: ^Rfl: metoprolol succinate ER (TOPROL XL) 25 mg 24 hr tablet^Take 12.5 mg by mouth twice daily.^Disp: ^Rfl: LEVALBUTEROL TARTRATE INHALATION^Inhale 1-2 Puffs as instructed four times daily as needed.^Disp: ^Rfl: TOOL DESIGNER THYROID 60 mg^Take 60 mg by mouth once daily.^Disp: ^Rfl: metFORMIN ER (GLUCOPHAGE XR) 500 mg 24 hr tablet^Take 500 mg by mouth twice daily.^Disp: ^Rfl: apixaban (ELIQUIS) 5 mg tab(s)^Take 5 mg by mouth twice daily.^Disp: ^Rfl: Cholecalciferol, Vitamin D3, 25 mcg (1,000 unit) chew^Take 3 tablets by mouth once daily.^Disp: ^Rfl: 0 multivitamins(DAILY MULTIVITAMIN TAB)^Take one(1) tablet daily.^Disp: ^Rfl: 0 Dia Vila RN PHYSICAL EXAMINATION: BP 169/70 Pulse (!) 58 Ht 165.1 cm (5' 5) Wt 59 kg (130 lb) LMP 07/03/2009 BMI 21.63 kg/m General: Looks well; pleasant and cooperative Neck: No carotid bruits, JVP normal Lungs: Clear to auscultation Cardiac: Regular rate and rhythm, no murmurs, rubs, gallops or clicks Abdomen: Soft, nontender, nondistended, no bruits Extremities: No cyanosis, clubbing, or edema; extremeties are warm Neurologic: A & O x 3; normal gait CARDIOVASCULAR MEDICINE TESTING: Today's EKG o 03/31/2022-04/14/2022 Patient had a min HR of 52 bpm, max HR of 193 bpm, and avg HR of 66 bpm. Predominant underlying rhythm was Sinus Rhythm. 87 Supraventricular Tachycardia runs occurred, the run with the fastest interval lasting 7 beats with a max rate of 193 bpm, the longest lasting 17 beats with an avg rate of 123 bpm. Supraventricular Tachycardia was detected within +/- 45 seconds of symptomatic patient event(s). Isolated SVEs were rare (<1.0%), SVE Couplets were rare (<1.0%), and SVE Triplets were rare (<1.0%). Isolated VEs were rare (<1.0%, 1037), VE Couplets were rare (<1.0%, 3), and VE Triplets were rare (<1.0%, 1). Echo 03/31/22 - Exam indication: Non-sustained atrial fibrillation - The left ventricle is normal in size. Left ventricular systolic function is normal. EF = 69 5% (2D biplane) Left ventricular diastolic function was not evaluated due to s/p ablation. - The right ventricle is normal in size. Right ventricular systolic function is normal. - Exam was compared with the prior echocardiographic exam performed on 08/11/2021. Similar findings reported. Record recurrences on or prior to the follow-up date but after the date of the previous follow-up (or after ablation date if this is the first follow-up) Palpitations: Yes AFib: No Aflutter: No AT or SVT: No Is patient currently in atrial fibrillation? No Arrhythmia recurrence beyond the blanking period: No One year success off AAD Yes IMPRESSION/PLAN: PAF: She is s/p PVI 12/22. Has acc brief palpitations lasting seconds that Zio showed to be nonsustained SVT up to 7 beats. I recommend continuing apixaban and metoprolol. Follow up: RTC 1y. Ana Tillman MD, MPH documented in this encounter [facility] 03-31-2022 History of Presen t illness Narrative EVENT MONITOR DISPOSABLE PATCH INSTRUCTIONS Patient Name: Olamide Mcgill [facility] Number: [id number] Skin prepped and cleansed with alcohol Patch secured to prepped area Monitor Activated Serial #: [id number] Patient Instructed: Prescribed order timeframe Bathing guidelines Usage of event button and diary documentation Return of monitor at the end of prescribed order Call with problems [phone] or [phone]. [phone] Patient expresses a good understanding of instructions Eryn Duenas Naytev documented in this encounter [facility] 03-31-2022 History of Presen t illness Narrative Images from the original note were not included. [facility] Department of Cardiovascular Medicine SECTION OF CARDIAC PACING and ELECTROPHYSIOLOGY OUTPATIENT VISIT DATE March 31, 2022 OUTPATIENT VISIT TYPE ESTABLISHED PRIMARY CARE PHYSICIAN: Tere Muro MD ([facility]) [address] [place] [address] CHIEF COMPLAINT: Arrhythmia HISTORY OF PRESENT ILLNESS: Ms. Mcgill is a 61 year old female who presents today for follow-up visit for atrial fibrillation. Patient is established with Dr. Tillman, seen last 12/25/21. She has a past medical history of hypertension, SVT, paroxysmal atrial fibrillation, hypothyroidism, diabetes, breast cancer s/p mastectomy/chemo/XRT 2009, and asthma. She was diagnosed with atrial fibrillation 04/2021, when she presented to local ED for rapid palpitations. She was initiated on IV medications and had spontaneous return to sinus rhythm. She was discharged with an increased dosage of metoprolol succinate, diltiazem, and eliquis for CVA prophylaxis. She was tried on flecainide in July 2021 but discontinued due to side effects of dizziness. [id number] score: 3 (hypertension, diabetes, female) - on Eliquis. She underwent cryo PVI with Dr. Tillman. On 12/26/2021. Patient returns today and reports doing well overall. She denies AF recurrences however she does feel brief palpitations on and off. She has not been able to catch these on the TTMs. There are no associated symptoms with these or any specific activity that precipitates these episodes. She denies chest pain, shortness of breath, orthopnea, cough, edema, palpitations, PND, lightheadedness or syncope. PAST CARDIAC HISTORY: PAST MEDICAL HISTORY Diagnosis Date Asthma COVID-19 04/2021 Diabetes mellitus (HCC) Hypothyroidism Malignant neoplasm of breast (female), unspecified site 04/02/2009 right, s/p XRT Paroxysmal atrial fibrillation (HCC) SVT (supraventricular tachycardia) (HCC) Unspecified essential hypertension Essential hypertension PAST SURGICAL HISTORY Procedure Laterality Date BIOPSY BREAST OPEN INCISIONAL Bx of breast, incisional BREAST RECONSTRUCTION 11/21/2010 Left pedicle TRAM flap and right mastopexy. MASTECTOMY, SIMPLE, COMPLETE 07/03/2009 Left simple mastectomy, sentinel lymph node biopsy, removal of a portion of the pectoralis muscle SOCIAL HISTORY Social History Tobacco Use Smoking status: Former Packs/day: 0.50 Years: 10.00 Pack years: 5.00 Types: Cigarettes Quit date: 05/03/1988 Years since quittin.9 Smokeless tobacco: Never Vaping Use Vaping Use: Never used Substance Use Topics Alcohol use: Not Currently Drug use: No FAMILY HISTORY Problem Relation Age of Onset Breast Cancer Other distant maternal relative, age unknown other (atypical ductal hyperplasia [Other]) Mother other (dm [Other]) Mother Stroke Paternal Grandmother age46 Stroke Father age71 Diabetes Mother ALLERGIES: ALLERGIES Allergen Reactions Adhesive Tape (Velma* Rash Patient also had redness and itching from surgical EKG patch. Flexeril [Cyclobenz* Shortness of Breath Levoxyl [Levothyrox* Hives MEDICATIONS: pantoprazole DR (PROTONIX) 40 mg tablet^Take 1 tablet by mouth DAILY (6 AM).^Disp: 30 tablet^Rfl: 0 LEVALBUTEROL TARTRATE INHALATION^Inhale 1-2 Puffs as instructed four times daily as needed.^Disp: ^Rfl: TOOL DESIGNER THYROID 60 mg^Take 60 mg by mouth once daily.^Disp: ^Rfl: fluticasone-salmeterol (ADVAIR DISKUS) 250-50 mcg/dose inhaler^Inhale 1 Puff as instructed twice daily.^Disp: ^Rfl: amoxicillin (AMOXIL) 875 mg tablet^Take 875 mg by mouth twice daily.^Disp: ^Rfl: metFORMIN ER (GLUCOPHAGE XR) 500 mg 24 hr tablet^Take 500 mg by mouth twice daily.^Disp: ^Rfl: dilTIAZem CR (TIAZAC, TAZTIA XT) 120 mg 24 hr capsule^Take 120 mg by mouth twice daily.^Disp: ^Rfl: apixaban (ELIQUIS) 5 mg tab(s)^Take 5 mg by mouth twice daily.^Disp: ^Rfl: Cholecalciferol, Vitamin D3, 25 mcg (1,000 unit) chew^Take 3 tablets by mouth once daily.^Disp: ^Rfl: 0 multivitamins(DAILY MULTIVITAMIN TAB)^Take one(1) tablet daily.^Disp: ^Rfl: 0 REVIEW OF SYSTEMS: GENERAL: Negative for: Weight loss or gain, Fever or Chills, Weakness and Sleep difficulties. HEENT: Negative for: Headache, Impaired Vision, Glasses, Hearing Impairment, Ringing in Ears, Nosebleeds, Poor Dental Care, Bleeding Gums and Dentures. NECK: Negative for: Swelling, Pain, Stiffness RESPIRATORY: Negative for: Cough, Blood in Sputum, Shortness of breath, Wheezing, Apnea GASTROINTESTINAL: Negative for: Trouble swallowing, Heartburn, Change in bowel habits, Blood in stool, Dark black stools MUSCULOSKELETAL: Negtive for: Muscle or joint pain, stiffness, Joint swelling NEUROLOGIC/PSYCHIATRIC: Negative for: Weakness, Paralysis, Numbness, Tingling, Tremor, Nervousness or anxiety, Depressed mood, Memory loss SKIN: Negative for: Rash, Itching HEMATOLOGICAL/LYMPHATIC: Negative for: Easy bruising, Easy bleeding ENDOCRINE: Negative for: Heat or Cold Intolerance, Excessive Sweating, Frequent Urination, Frequent Thirst PHYSICAL EXAMINATION: LMP 07/03/2009 BP 159/81 Pulse 65 Ht 165.1 cm (5' 5) Wt 57.2 kg (126 lb) LMP 07/03/2009 BMI 20.97 kg/m General: Well appearing, in no acute distress, speaking in complete sentences. Skin: No clubbing, no cyanosis. Neck: No jugular venous distention, no carotid bruits, carotids have a normal upstroke, no palpable thyromegaly. Lungs: Clear to auscultation bilaterally, no wheezing or rhonchi. Heart: Regular rhythm, PMI not displaced, S1, S2 normal, no S3, no S4, no heaves, no rub and no murmur. Abdomen: Soft, nontender, bowel sounds normal, no palpable organomegaly, no bruits. Extremities: No peripheral edema . Grade 2/4 distal pulses bilaterally. Neuro: Oriented to person, place and time, alert, cooperative, gait coordinated. CARDIOVASCULAR MEDICINE TESTING: Last ECHO Result Conclusion ECHO Collected: 08/11/2021 1:06 PM (Final result) Impression: CONCLUSIONS: - Exam indication: Atrial fibrillation - The left ventricle is normal in size. Left ventricular systolic function is normal. EF = 65 5% (2D biplane) Normal left ventricular diastolic function. - The right ventricle is normal in size. Right ventricular systolic function is normal. - There are no significant valvular abnormalities. - Exam was compared with the prior echocardiographic exam performed on 06/16/2012 (Stress). * * * Final * * * Last EKG Result Conclusion ECG COMPLETE Collected: 03/31/2022 12:06 PM (Preliminary result) Impression: NORMAL SINUS RHYTHM ABNORMAL QRS-T ANGLE, CONSIDER PRIMARY T WAVE ABNORMALITY ABNORMAL ECG 1. How often on average, does your irregular heart rhythm (atrial fibrillation) occur? Not applicable, I have not had an irregular heart rhythm since my ablation 2. How long on average, do the episodes of the irregular heart rhythm last? Not applicable, I have not had an irregular heart rhythm since my ablation 3. How often have you been bothered by this symptom in the past 4 weeks? Palpitations: a little, Shortness of breath at rest: none, Shortness of breath during physical activity: none, Exercise intolerance (fatigue during mild physical activity): none, Fatigue at rest: none, Lightheadedness/dizziness: none, and Chest pain or pressure: none 4. Have you had an inpatient hospital admission within 30 days of your procedure? No Reina Oreilly APRN.CNP Record recurrences on or prior to the follow-up date but after the date of the previous follow-up (or after ablation date if this is the first follow-up) Palpitations: Yes AFib: No Aflutter: No AT or SVT: No Is patient currently in atrial fibrillation? No Arrhythmia recurrence beyond the blanking period: No One year success off AAD Not applicable Reina Oreilly APRN.CNP IMPRESSION: Ms. Mcgill is a 61 year old female who presents today for follow-up visit for atrial fibrillation. Patient is established with Dr. Tillman, seen last 12/25/21. She has a past medical history of hypertension, SVT, paroxysmal atrial fibrillation, hypothyroidism, diabetes, breast cancer s/p mastectomy/chemo/XRT 2009, and asthma. (I48.0) Paroxysmal atrial fibrillation (HCC) (primary encounter diagnosis) -diagnosed with atrial fibrillation 04/2021 -initiated on IV medications and had spontaneous return to sinus rhythm. -tried on flecainide in July 2021 but discontinued due to side effects of dizziness. -s/p cryo PVI with Dr. Tillman. On 12/26/2021 - TTMs have been SR so far Plan: continue monitoring (E03.9) Hypothyroidism, unspecified type -on thyroid supplement Plan: continue same regimen (R00.2) Palpitations -reports having brief palpitations but not able to catch them on TTMs Plan:2 weeks Zio monitor to assess (Z79.01) Chronic anticoagulation -[id number] score: 3 (hypertension, diabetes, female) - on Eliquis, denies bleeding events Plan: continue same regimen PLAN AND RECOMMENDATIONS: Zio monitor Continue current medications. Follow up requested in December 2022 or sooner if needed. CONTACT INFORMATION: Reina Oreilly APRN.CNP documented in this encounter [facility] 03-12-2022 Miscellaneous Notes Date: March 12, 2022 Time: 1:09 PM The following orders/tests have been written down, read back and confirmed as ordered by Ana Tillman MD,MPH . Per Dr. Tillman the august wean off metoprolol. Contacted the patient. She reports she either takes 25 or 12.5 mg daily. She will wean off metoprolol. Instructed the patient on how to wean off metoprolol. Fernando RN Patient calling in would like to know if she can come off the metoprolol because it it has been affecting her asthma she has been experiencing wheezing and her blood pressure has been running low. documented in this encounter [facility] 01-09-2022 History of Presen t illness Narrative echo and EKG ordered per Dr Tillman's preference post PVI -- to be coordinated by EP schedulers No CT scan d/t contrast shortage Lisa Arrington APRN.BORING MACHINE OPERATOR documented in this encounter [facility] 12-29-[address] Tillman reviewed photos. Per Dr. Tillman everything looks ok. Contacted the patient and updated her. She will continue to monitor the site and call with any changes. Fernando RN documented in this encounter [facility] 12-29-2021 Miscellaneous Notes Contacted the patient. She underwent a PVI on 12/26. The next day she noticed a bruise on her left thigh (inside). It is soft. It is not getting bigger. It is not painful. It is purple and swollen. She will send a picture. Fernando RN Patient calling in has a big bruise on the in side of her left thigh. She states it doesn't hurt she is just very concerned. documented in this encounter [facility] 12-26-2021 History of Presen t illness Narrative TRANSMITTER INSTRUCTIONS Patient Name: Olamide Mcgill [facility] Number: [id number] Fresh battery inserted in monitor Patient instructed 1.) Scheduled and Symptomatic recording instructions 2.) Usage of event button and/or transmission instructions 3.) Maintenance and care of monitor 4.) Landline availability 5.) Return unit at the end of prescribed order 6.) Call with problems [phone] OR [phone] Patient expresses good verbal understanding of instructions Sarina Lazcano documented in this encounter [facility] 12-25-2021 History of Presen t illness Narrative THE FOLLOWING WAS EVALUATED Motivation To Learn: Interested Family/Significant Other Support: Unable to assess - Family not present Cognitive Ability: Alert and oriented Patient Learns Best By: Individual Instruction The Following Influencing Factors Were Barriers To This Education Session: None The Following Physical Limitations Were Barriers To This Education Session: None Instruction Provided To: Patient Procedure: Pulmonary Vein Ablation/Isolation Pre-procedure information reviewed: Patient ID verified Procedure verified Physician verified Explanation of procedure Sedation level during procedure MD medication instructions from EP lab request Patient denies missing any doses of Eliquis in the past 21 days. Travel instructions/restrictions Scheduling information Possible same day discharge versus overnight hospital stay Check out time Family waiting area Physician contact with family after procedure Post Procedure Expectations reviewed: Inpatient hospital stay Post procedure antiarrhythmics and anticoagulation will be discussed with Physician, nurse practitioner or Physician patient support assistant upon discharge Instructions for transmitting EKG to Monitoring Center 3 month follow up instructions Contact number for information and questions Patient Evaluation: Verbalizes understanding Follow Up Plan: Follow up as directed by MD. Supplemental Material Given: Written Material Patient education regarding radiation exposure. Instructed By April Hill RN, RN. In Department of CARDIOLOGY. documented in this encounter [facility] 12-25-2021 History of Presen t illness Narrative Images from the original note were not included. Heart [facility] V[facility] Department of Cardiovascular Medicine SECTION OF CARDIAC PACING and ELECTROPHYSIOLOGY OUTPATIENT VISIT DATE December 25, 2021 OUTPATIENT VISIT TYPE ESTABLISHED PRIMARY CARE PHYSICIAN: Tere Muro MD ([facility]) [address] [place] [address] REFERRING PHYSICIAN: Dr. Le [id number] [facility] [address] CHIEF COMPLAINT: AF, pre-PVI HISTORY OF PRESENT ILLNESS: Ms. Mcgill is a 61 year old female who presents today for follow-up visit for atrial fibrillation prior to scheduled PVI for tomorrow. She was last seen in office by Dr. Le on 07/23/21. She has a past medical history of hypertension, SVT, paroxysmal atrial fibrillation, hypothyroidism, diabetes, breast cancer s/p mastectomy/chemo/XRT 2009, and asthma. She was diagnosed with atrial fibrillation 04/2021, when she presented to local ED for rapid palpitations. She was initiated on IV medications and had spontaneous return to sinus rhythm. She was discharged with an increased dosage of metoprolol succinate, diltiazem, and eliquis for CVA prophylaxis. She was tried on flecainide in July 2021 but discontinued due to side effects of dizziness. She reports paroxysmal AF, with episodes about every 2-3 weeks, usually lasting 3-6 hours, but has had two longer episodes which lasted 16-24 hours. With the episodes she reports racing palpitations and occasional lightheadedness. She feels eating fatty or high sugar foods is a trigger for AF episodes. She wore a Zio monitor in August which showed 2% AF burden, with longest episode 6 hours, and few nocturnal pauses with longest 4 seconds which occurred at 3 am. She had an ED visit in early October for AF with RVR, and had 4 attempts but unsuccessful cardioversion. A few hours later she self-converted. She had another ED visit for AF with RVR 2 weeks ago and was treated with IV cardizem, and she self-converted. She reports overall fatigue. She occasionally has leg swelling at the end of the day. She does cardio exercise video daily and tolerates it well. Home BP's range 110's/50-60's. She plans to have a sleep study per her PCP. Patient denies chest pain, shortness of breath, orthopnea, cough, PND, dizziness, nearsyncope, or syncope. [id number] score: 3 (hypertension, diabetes, female) - on Eliquis PAST MEDICAL HISTORY Diagnosis Date Asthma COVID-19 04/2021 Diabetes mellitus (HCC) Hypothyroidism Malignant neoplasm of breast (female), unspecified site 04/02/2009 right, s/p XRT Paroxysmal atrial fibrillation (HCC) SVT (supraventricular tachycardia) (HCC) Unspecified essential hypertension Essential hypertension PAST SURGICAL HISTORY Procedure Laterality Date BIOPSY BREAST OPEN INCISIONAL Bx of breast, incisional BREAST RECONSTRUCTION 11/21/2010 Left pedicle TRAM flap and right mastopexy. MASTECTOMY, SIMPLE, COMPLETE 07/03/2009 Left simple mastectomy, sentinel lymph node biopsy, removal of a portion of the pectoralis muscle SOCIAL HISTORY Social History Tobacco Use Smoking status: Former Packs/day: 0.50 Years: 10.00 Pack years: 5.00 Types: Cigarettes Quit date: 05/03/1988 Years since quittin.6 Smokeless tobacco: Never Vaping Use Vaping Use: Never used Substance Use Topics Alcohol use: Not Currently Drug use: No FAMILY HISTORY Problem Relation Age of Onset Breast Cancer Other distant maternal relative, age unknown other (atypical ductal hyperplasia [Other]) Mother other (dm [Other]) Mother Stroke Paternal Grandmother age46 Stroke Father age71 Diabetes Mother ALLERGIES: ALLERGIES Allergen Reactions Adhesive Tape (Velma* Rash Patient also had redness and itching from surgical EKG patch. Flexeril [Cyclobenz* Shortness of Breath Levoxyl [Levothyrox* Hives MEDICATIONS: LEVALBUTEROL TARTRATE INHALATION Inhale 1-2 Puffs as instructed four times daily as needed. TOOL DESIGNER THYROID 60 mg Take 60 mg by mouth once daily. metoprolol succinate ER (TOPROL XL) 50 mg 24 hr tablet Take by mouth twice daily. Taking 50-100 mg twice daily fluticasone-salmeterol (ADVAIR DISKUS) 250-50 mcg/dose inhaler Inhale 1 Puff as instructed twice daily. amoxicillin (AMOXIL) 875 mg tablet Take 875 mg by mouth twice daily. metFORMIN ER (GLUCOPHAGE XR) 500 mg 24 hr tablet Take 500 mg by mouth twice daily. dilTIAZem CR (TIAZAC, TAZTIA XT) 120 mg 24 hr capsule Take 120 mg by mouth twice daily. apixaban (ELIQUIS) 5 mg tab(s) Take 5 mg by mouth twice daily. Cholecalciferol, Vitamin D3, 25 mcg (1,000 unit) chew Take 3 tablets by mouth once daily. multivitamins(DAILY MULTIVITAMIN TAB) Take one(1) tablet daily. Luli Stern RN PHYSICAL EXAMINATION: BP 180/75 Pulse (!) 54 Ht 165.1 cm (5' 5) Wt 56.4 kg (124 lb 6.4 oz) LMP 07/03/2009 BMI 20.70 kg/m General: Looks well; pleasant and cooperative Neck: No carotid bruits, JVP normal Lungs: Clear to auscultation Cardiac: Regular rate and rhythm, no murmurs, rubs, gallops or clicks Abdomen: Soft, nontender, nondistended, no bruits Extremities: No cyanosis, clubbing, or edema; extremeties are warm Neurologic: A & O x 3; normal gait Last ECHO Result Conclusion ECHO Collected: 08/11/2021 1:06 PM (Final result) Impression: CONCLUSIONS: - Exam indication: Atrial fibrillation - The left ventricle is normal in size. Left ventricular systolic function is normal. EF = 65 5% (2D biplane) Normal left ventricular diastolic function. - The right ventricle is normal in size. Right ventricular systolic function is normal. - There are no significant valvular abnormalities. - Exam was compared with the prior echocardiographic exam performed on 06/16/2012 (Stress). * * * Final * * * Last EKG Result Conclusion ECG COMPLETE Collected: 12/25/2021 10:45 AM (Preliminary result) Impression: SINUS BRADYCARDIA POSSIBLE LEFT ATRIAL ENLARGEMENT NONSPECIFIC ST ABNORMALITY ABNORMAL ECG EKG today: [employer] monitor 08/15-08/29/21: Patient had a min HR of 33 bpm, max HR of 167 bpm, and avg HR of 51 bpm. Predominant underlying rhythm was Sinus Rhythm. 1 run of Ventricular Tachycardia occurred lasting 8 beats with a max rate of 141 bpm (avg 119 bpm). 78 Supraventricular Tachycardia runs occurred, the run with the fastest interval lasting 10 beats with a max rate of 167 bpm, the longest lasting 22.2 secs with an avg rate of 110 bpm. Atrial Fibrillation occurred (2% burden), ranging from 33-136 bpm (avg of 67 bpm), the longest lasting 6 hours 11 mins with an avg rate of 62 bpm. True duration of Atrial Fibrillation episodes difficult to ascertain due to the presence of artifact. 27 Pauses occurred, the longest lasting 4.1 secs (15 bpm). Supraventricular Tachycardia and Atrial Fibrillation were detected within +/- 45 seconds of symptomatic patient event(s). Isolated SVEs were rare (<1.0%), SVE Couplets were rare (<1.0%), and SVE Triplets were rare (<1.0%). Isolated VEs were rare (<1.0%, 380), VE Couplets were rare (<1.0%, 54), and VE Triplets were rare (<1.0%, 11). MD notification criteria for Pauses met - notified Jyotsna Parikh on 09 Sep 2021 at 12:36 pm IMPRESSION: PAF: She is scheduled for PVI tomorrow with me. The patient and I engaged in a shared decision making process to determine what would be best for them. After our discussion the decision was made to pursue ablation. The personnel, risks, benefits, and alternatives to ablation were discussed with the patient and all questions were answered. The patient wishes to proceed with the procedure. Plan is to kathleen the cryoballoon under general anesthesia. Ana Tillman MD, MPH documented in this encounter [facility] 12-25-2021 History of Presen t illness Narrative Radiology Service Progress Note DATE OF SERVICE: December 25, 2021 TIME: 9:56 AM PATIENT WEIGHT: 129 LBS PATIENT IDENTITY VERIFICATION COMPLETED USING TWO (2) STANDARD IDENTIFIERS: Name and Date of confirmed by patient verbally. FALL SCREENING: Has the patient had 2 falls in the last year or 1 fall with injury or currently using an Ambulatory Assistive Device (Walker, Cane, Wheelchair, Crutches, etc.)? No PATIENT GENDER DATA: Female. status: : No status: NO. ALLERGIES: Reviewed and unchanged CONTRAST ALLERGY: No EXAM: CT -CONTRAST INDUCED NEPHROPATHY RISK FACTORS: Patient age > 60 years and Diabetic: Yes. Current medication(s): Metformin. Patient currently has insulin pump?: No. CREATININE: Creatinine Date Value Ref Range Status 12/22/2021 0.61 0.58 - 0.96 mg/dL Final 11/21/2012 0.71 0.70 - 1.40 mg/dL Final 08/09/2012 0.72 0.70 - 1.40 mg/dL Final Estimated Glomerular Filtration Rate Date Value Ref Range Status 12/22/2021 101 >=60 mL/min/1.73m Final Comment: Estimated Glomerular Filtration Rate (eGFR) is calculated using the 2020 CKD-EPI creatinine equation. This equation utilizes serum creatinine, sex, and age as parameters. The creatinine assay has traceable calibration to isotope dilution-mass spectrometry. Refer to KDIGO guidelines for clinical interpretation. In patients with unstable renal function, e.g. those with acute kidney injury, the eGFR may not accurately reflect actual GFR. eGFR- Date Value Ref Range Status 11/21/2012 >60 Final P.O.C.T. RESULTS: N/A December 25, 2021 TREATMENT: No Hydration needed. IV SITE: Ambulatory: A peripheral IV was started in the Right antecubital site with a Angio cath: 20 gauge. and A Saline lock was inserted per protocol IV SITE APPEARANCE: Clean,Dry and Intact SIGNATURE: Gregorio Riley RN PATIENT NAME: Olamide Mcgill DATE: December 25, 2021 TIME: 9:56 AM Radiology Service Progress Note PATIENT NAME: Olamide Mcgill DATE OF SERVICE: December 25, 2021 TIME: 10:28 AM PATIENT IDENTITY VERIFICATION COMPLETED USING TWO (2) IDENTIFIERS: Name and Date of confirmed by patient verbally and Name and Date of confirmed by identification band. FALL SCREENING: Has the patient had 2 falls in the last year or 1 fall with injury or currently using an Ambulatory Assistive Device (Walker, Cane, Wheelchair, Crutches, etc.)? No PATIENT GENDER DATA: Female. status: : No status: NO. PATIENT RELEVANT IMPLANT DATA REVIEWED: Yes RADIOLOGY DEPARTMENT: CT; Exam(s) Completed: Cardiac PERIPHERAL IV DATA: Site assessment: Clean,Dry and Intact, Site disposition Discontinued SIGNED BY: RT Jaya(R) December 25, 2021 10:28 AM documented in this encounter [facility] 12-17-2021 Miscellaneous Notes Called patient and reviewed concerns. Deirdre Montelongo RN December 15, 2021 Patient Contact No. [phone] Patient last seen: 07/23/2021 Patient scheduled for ablation on December 26 and is calling to review which if any medications should be stopped. Physician: Ara Le MD documented in this encounter [facility] 11-11-2021 Miscellaneous Notes Patient returned call & accepted date. Needs OPD with Dr. Tillman, Cardiac CT, ECG, pre-op Covid-19 test & Labs (CBC,BMP,T&S) one day prior to procedure date. The date of 12/26/21 with offered. Awaiting confirmation from patient. ----- Message from Ara Le MD sent at 11/05/2021 4:39 PM EDT ----- PVI with Dr Tillman Please Thanks Mo documented in this encounter [facility] 10-24-2021 Miscellaneous Notes Outside medical records received- uploaded in the EP shared drive. Appointment on 01/28/2022 Last appointment on 10/24/2021 Belen Herron documented in this encounter [facility] 10-24-2021 Miscellaneous Notes Spoke with patient, she attempted 1 day of flecainide discontinued due to c/o dizziness. She will have ER records faxed to office. Will discuss with Dr. Le. Deirdre Montelongo RN October 24, 2021 Patient Name:PATIENT Olamide Mcgill Contact Information: [phone] Last visit with EP Provider: 09/09/2021 Reason for Call: Patient called in to make sure Dr. Le was aware that her other doctor has taken her off flecainide and put her back on diltiazem. She also said after going off her metoprolol because of her asthma her afib has gotten worse. Has been to the ER in the past week for it. She also said her BMP was alarming to the ED saying 'her heart wasn't pumping as well'. Patient would like to know if there is another medication like metoprolol that she can be on to help with afib. Physician: Ara Le MD Thank you, Belen Herron The patient was informed that our caregivers are afforded 72 business hours to review and respond telephone messages. documented in this encounter [facility] 09-09-2021 Miscellaneous Notes Called patient and reviewed concerns, discussed her Zio monitor and reviewed with Dr. Le. Per patient she continued taking her metoprolol dosage despite being advised to discontinue this medication. She thought she was only to discontinue it prior to the stress test. Reviewed with Dr. Le, patient advised to reduce metoprolol dosage to 12.5 mg twice daily and stop completely. She was able to repeat back these instructions as they were given to her. Further reviewed event monitor with Dr. Le, stress test and echocardiogram. Patient provided results following Review with Dr. Le. Advised patient that she will receive a mychart message from Dr. Le per Dr. Le. Further patient expressed concern over blood thinners, reassurance provided and rationale for taking blood thinners provided. (Chads vasc of 3). Deirdre Montelongo RN September 09, 2021 Patient Name:PATIENT Olamide Mcgill Contact Information: iRhythm Last visit with EP Provider: 08/13/2021 Reason for Call: Abnormal iRhythm results: 227 pauses ranging from 3 to 4.1 seconds. Longest pause of 4.1 seconds can be seen on page 23 strip 10. Report will be available shortly and will be faxed to office. Physician: Ara Le MD Thank you, Belen Herron The patient was informed that our caregivers are afforded 72 business hours to review and respond telephone messages. documented in this encounter [facility] 08-15-2021 History of Presen t illness Narrative RADIOLOGY SERVICE PROGRESS NOTE SERVICE DATE: 08/15/2021 SERVICE TIME: 10:40 AM PATIENT IDENTITY VERIFICATION COMPLETED USING TWO (2) STANDARD IDENTIFIERS: Name and Date of confirmed by patient verbally and Name and Date of confirmed by identification band PATIENT GENDER DATA: female : No ALLERGIES: Reviewed and unchanged MEDICATIONS REVIEWED BY: Steel Cutter PROCEDURE TYPE: NM STRESS: 0.4 mg of Lexiscan was administered IV at 1037 by Donna Saab RN . Reversal agent used: None. IV SITE: Ambulatory: A peripheral IV was started in the Right antecubital site with a Angio cath: 22 gauge. and A Saline lock was inserted per protocol POST EXAM PIV STATUS: Discontinued PATIENT DISCHARGED TO: Ambulatory patient, left [place] department area. A Diagnostic radioactive procedure has taken place, with no further precautions necessary other than routine body substance precautions. More information regarding radiation safety can be found using this link: [email or web address] [email or web address]%20N uclear%20Medicine%20Procedures.p df SIGNATURE: Donna Saab RN PATIENT NAME: Olamide Mcgill DATE: August 15, 2021 TIME: 10:40 AM PAGER/CONTACT #: RADIOLOGY SERVICE PROGRESS NOTE SERVICE DATE: 08/15/2021 SERVICE TIME: 9:36 AM PATIENT IDENTITY VERIFICATION COMPLETED USING TWO (2) STANDARD IDENTIFIERS: Name and Date of confirmed by patient verbally FALL SCREENING: Has the patient had 2 falls in the last year or 1 fall with injury or currently using an Ambulatory Assistive Device (Walker, Cane, Wheelchair, Crutches, etc.)? No PATIENT GENDER DATA: .female : No ALLERGIES: Reviewed and unchanged MEDICATIONS REVIEWED: No PATIENT RELEVANT IMPLANT DATA REVIEWED: Not Applicable CREATININE: Creatinine Date Value Ref Range Status 11/21/2012 0.71 0.70 - 1.40 mg/dL Final 08/09/2012 0.72 0.70 - 1.40 mg/dL Final 06/23/2012 0.69 (L) 0.70 - 1.40 mg/dL Final eGFR-All Other Races Date Value Ref Range Status 11/21/2012 >60 . Final Comment: eGFR (Estimated GFR) Units of measure: mL/min/1.73 meters squared eGFR is derived from the reexpressed MDRD Study equation using the following parameters: serum creatinine, age, gender and race. The creatinine assay has been calibrated to be traceable to IDMS. An eGFR <60 mL/min/1.73m2 for >3 months is consistent with chronic kidney disease. Refer to KDOQI guidelines for clinical interpretation. eGFR- Date Value Ref Range Status 11/21/2012 >60 Final P.O.C.T. RESULTS: N/A August 15, [address] PERFORMED: No IV SITE: Ambulatory: A peripheral IV was started in the Right antecubital site with a Angio cath: 22 gauge. POST EXAM PIV STATUS: Discontinued PROCEDURE TYPE: NM Stress: 13.0mCi [id number] was administered IV for Rest Imaging at 09:32 by Berry [place]. 30.8 mCi [id number] was administered IV for Stress Imaging at 1037 by RT Ernesto(R). ADMINISTRATION TIME: PATIENT DISCHARGED TO: Ambulatory patient, left [place] department area. A Diagnostic radioactive procedure has taken place, with no further precautions necessary other than routine body substance precautions. More information regarding radiation safety can be found using this link: [email or web address] [email or web address]-%20Diagnostic%20N uclear%20Medicine%20Procedures.p df SIGNATURE: Berry [place] PATIENT NAME: Olamide Mcgill DATE: August 15, 2021 TIME: 9:36 AM PAGER/CONTACT #: documented in this encounter [facility] 08-13-2021 Miscellaneous Notes Reviewed stress test instructions with patient and updated med list to include metformin. Karolyn Murguia RN August 13, 2021 Patient Name:PATIENT Olamide Mcgill Contact Information: [phone] Last visit with EP Provider: 07/23/2021 Reason for Call: Patient is getting a stress test on Wednesday and would like to know if she should be stopping any of her other medications other then the metoprolol. Physician: Ara Le MD Thank you, Belen Herron The patient was informed that our caregivers are afforded 72 business hours to review and respond telephone messages. documented in this encounter [facility] Evaluation note Diagnosis Paroxysmal atrial fibrillation (HCC) Atrial fibrillation documented in this encounter [facility] [place] [facility] noteNo assessment information availableWParkview Health Work Phone: Evaluation note* Diagnosis Persistent atrial fibrillation (HCC)- Primary Atrial fibrillation [facility]* Diagnosis AF (paroxysmal atrial fibrillation) (HCC)- Primary Atrial fibrillation Paroxysmal atrial fibrillation (HCC) Atrial fibrillation documented in this encounter [facility] note* Diagnosis AF (paroxysmal atrial fibrillation) (HCC)- Primary Atrial fibrillation Paroxysmal atrial fibrillation (HCC) Atrial fibrillation documented in this encounter [facility] note* Diagnosis Persistent atrial fibrillation (HCC) Atrial fibrillation [facility]* Diagnosis AF (paroxysmal atrial fibrillation) (HCC)- Primary Atrial fibrillation documented in this encounter [facility] [place] [facility]* Diagnosis Persistent atrial fibrillation (HCC)- Primary Atrial fibrillation documented in this encounter [facility] note* Diagnosis Paroxysmal atrial fibrillation (HCC)- Primary Atrial fibrillation documented in this encounter [facility] note* Diagnosis Paroxysmal atrial fibrillation (HCC)- Primary Atrial fibrillation Hypothyroidism, unspecified type Palpitations Chronic anticoagulation Long-term (current) use of anticoagulants [facility]* Diagnosis Paroxysmal atrial fibrillation (HCC)- Primary Atrial fibrillation [facility]* Diagnosis AF (paroxysmal atrial fibrillation) (HCC)- Primary Atrial fibrillation documented in this encounter [facility] note* Diagnosis AF (paroxysmal atrial fibrillation) (HCC)- Primary Atrial fibrillation documented in this encounter [facility] note* Diagnosis Palpitations- Primary Paroxysmal atrial fibrillation (HCC) Atrial fibrillation documented in this encounter [facility] note* Diagnosis AF (paroxysmal atrial fibrillation) (HCC)- Primary Atrial fibrillation [facility] Additional Instructions Please return if your symptoms change or worsen. Specifically if you develop chest pain, shortness of breath, worsening lower extremity swelling, fatigue, inability to perform your activities of daily living. Please follow-up with your primary care physician, liquor runner, fleecer at the next available appointment for reassessment and titration of medicines. He is continue to take your current medicines as prescribed.[facility] Work Phone: Hospital Discharge instructionsWParkview Health Work Phone: Hospital Discharge instructionsWParkview Health Work Phone: Hospital Discharge instructionsWParkview Health Work Phone: Reason for referral (narrative)* Outpatient Procedure (Routine) - Authorized Specialty Diagnoses / Procedures Referred By Contac t Referred To Contact [facility] [place] Diagnoses AF (paroxysmal atrial fibrillation) (HCC) Procedures ECG COMPLETE ECG ROUTINE ECG W/LEAST 12 LDS W/I&R Ana Tillman MD [address] [place] [address] [place] [id number] [place] [id number] Referral ID Status Reason Start Date Expiration Date Visits Requested Visits Authorized [id number] Authorized Auto-Generat ed Referral 11/11/2021 11/11/2022 1 1 [facility] for referral (narrative)* Outpatient Procedure (Routine) - Pending Review Specialty Diagnoses / Procedures Referred By Contac t Referred To Contact [facility] Diagnoses Persistent atrial fibrillation (HCC) Procedures ECG COMPLETE ECG ROUTINE ECG W/LEAST 12 LDS W/I&R Lisa Arrington APRN.CNP [address] [email or web address] [address] [place] [address] [place] [address] [email or web address] [address] Referral ID Status Reason Start Date Expiration Date Visits Requested Visits Authorized [id number] Pending Review Auto-Generat ed Referral 01/09/2022 01/09/2023 1 1 * Outpatient Procedure (Routine) - Pending Review Specialty Diagnoses / Procedures Referred By Contac t Referred To Contact [facility] Diagnoses Persistent atrial fibrillation (HCC) Procedures ECHO ECHO TTHRC R-T 2D W/WOM-MODE COMPL SPEC&COLR D Lisa Arrington APRN.CNP [address] [place] [address] [place] [phone] Referral ID Status Reason Start Date Expiration Date Visits Requested Visits Authorized [id number] Pending Review Auto-Generat ed Referral 01/09/2022 01/09/2023 1 1 [facility] for referral (narrative)* Outpatient Procedure (Routine) - Authorized Specialty Diagnoses / Procedures Referred By Contac t Referred To Contact [facility] Diagnoses Paroxysmal atrial fibrillation (HCC) Procedures ECG COMPLETE ECG ROUTINE ECG W/LEAST 12 LDS W/I&R Ana Tillman MD [address] [place], [place] [id number] [place] [id number] Referral ID Status Reason Start Date Expiration Date Visits Requested Visits Authorized [id number] Authorized Auto-Generat ed Referral 07/13/2022 07/13/2023 1 1 [facility] for referral (narrative)* Outpatient Procedure (Routine) - Authorized Specialty Diagnoses / Procedures Referred By Contac t Referred To Contact [facility] Diagnoses AF (paroxysmal atrial fibrillation) (HCC) Procedures ECG COMPLETE ECG ROUTINE ECG W/LEAST 12 LDS W/I&R Ana Tillman MD [address] [place] [address] [address] Referral ID Status Reason Start Date Expiration Date Visits Requested Visits Authorized [id number] Authorized Auto-Generat ed Referral 10/06/2023 10/05/2024 1 1 T [facility] Summary Purpose Family History No Family History Records Found Relationship Condition Age at Onset Recorded Date/T alana mother Diabetes mellitus Unknown Myocardial infarction Unknown Cerebrovascular accident (CVA) Unknown father Cerebrovascular accident (CVA) Unknown Advance Directives No Advanced Directives Records FoundDocuments on File Type Date Recorded 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 Advance Directive(s) Advance Directive Response Recorded Date/ Time Living Will No October 20, 2021 9:54am Power of Medical Research Scientist No October 20 9:54am Advance Directive Response Recorded Date/ Time Living Will No November 07, 2021 1 :01am Power of Medical Research Scientist No November 07, 2021 1:01am Documents on File Type Date Recorded 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 Advance Directive(s) Advance Directive Response Recorded Date/ Time Living Will No December 14 12:34pm Power of Medical Research Scientist No December 14 022 12:34pm Health Concerns Infection Onset Date Last Indicated Resolved Time COVID-19 Rule-Out 08/13/2021 08/13/2021 Infection Onset Date Last Indicated Resolved Time COVID-19 Rule-Out 12/25/2021 12/25/2021 Infection Onset Date Last Indicated Resolved Time COVID-19 Rule-Out 12/25/2021 12/25/2021 12/25/2021 9:29 PM EDT Chief Complaint and Reason for Visit Chief Complaint palpitations Chief Complaint palpitations PALPITATIONS palpitations Chief Complaint palpitations PALPITATIONS palpitations PALPITATION Chief Complaint palpitations PALPITATIONS palpitations PALPITATION AFIB Reason for Referral Specialty Diagnoses / Procedures Referred By Lois xiong Referred To Contact CT IMAGING Diagnoses Persistent atrial fibrillation (HCC) Procedures CT PULMONARY VEIN W IVCON CT HEART CONTRAST EVAL CARDIAC STRUCTURE&MORPH Ana Tillman MD [address] [place] [address] Ct Imaging Referral ID Status Reason Start Date Expiration Date Visits Requested Visits Authorized [id number] Pending Review Auto-Generat ed Referral 11/07/2021 12/07/2022 1 1 Referral ID Status Reason Start Date Expiration Date V isits Requested Visits Authorized [id number] Closed Auto-Generate d Referral 12/11/2021 01/10/2022 1 1 Specialty Diagnoses / Procedures Referred By Lois xiong [facility] Procedures CARDIOVASCULAR MEDICINE OP FOLLOW UP APPT ORDER Ana Tillman MD [address] [place] [address] [place] [address] Referral ID Status Reason Start Date Expiration Date Visits Requested Visits Authorized [id number] Ref Not Required PCP Requested Referral 09/16/2024 12/15/2024 1 1 Additional Source Comments INFORMATION SOURCE (unrecogn ized section and content) DATE CREATED AUTHOR 11/20/2019 [facility] [place] DATE CREATED AUTHOR AUTHOR'S ORGANIZ ATION 10/08/2023 [facility] DATE CREATED AUTHOR AUTHOR'S ORGANIZ ATION 07/08/2024 [facility] Source Comments (unrecognize d section and content) In the event this informatio n is protected by the Federal Confidentiality of Alcohol and Drug Abuse Patient Records regulations: The Federal rules restrict any use of the information to criminally investigate or prosecute any alcohol or drug abuse patient.[facility] the event this information is protected by the Federal Confidentiality of Alcohol and Drug Abuse Patient Records regulations: The Federal rules restrict any use of the information to criminally investigate or prosecute any alcohol or drug abuse patient.[facility] Hospital[facility] the event this information is protected by the Federal Confidentiality of Alcohol and Drug Abuse Patient Records regulations: The Federal rules restrict any use of the information to criminally investigate or prosecute any alcohol or drug abuse patient.[facility] Hospital[facility] the event this information is protected by the Federal Confidentiality of Alcohol and Drug Abuse Patient Records regulations: The Federal rules restrict any use of the information to criminally investigate or prosecute any alcohol or drug abuse patient.[facility] Hospital[facility] the event this information is protected by the Federal Confidentiality of Alcohol and Drug Abuse Patient Records regulations: The Federal rules restrict any use of the information to criminally investigate or prosecute any alcohol or drug abuse patient.[facility] Hospital[facility] the event this information is protected by the Federal Confidentiality of Alcohol and Drug Abuse Patient Records regulations: The Federal rules restrict any use of the information to criminally investigate or prosecute any alcohol or drug abuse patient.[facility] Hospital[facility] the event this information is protected by the Federal Confidentiality of Alcohol and Drug Abuse Patient Records regulations: The Federal rules restrict any use of the information to criminally investigate or prosecute any alcohol or drug abuse patient.[facility] Hospital[facility] the event this information is protected by the Federal Confidentiality of Alcohol and Drug Abuse Patient Records regulations: The Federal rules restrict any use of the information to criminally investigate or prosecute any alcohol or drug abuse patient.[facility] Hospital[facility] the event this information is protected by the Federal Confidentiality of Alcohol and Drug Abuse Patient Records regulations: The Federal rules restrict any use of the information to criminally investigate or prosecute any alcohol or drug abuse patient.[facility] Hospital[facility] the event this information is protected by the Federal Confidentiality of Alcohol and Drug Abuse Patient Records regulations: The Federal rules restrict any use of the information to criminally investigate or prosecute any alcohol or drug abuse patient.[facility] Hospital[facility] the event this information is protected by the Federal Confidentiality of Alcohol and Drug Abuse Patient Records regulations: The Federal rules restrict any use of the information to criminally investigate or prosecute any alcohol or drug abuse patient.[facility] HospitalIn the event this information is protected by the Federal Confidentiality of Alcohol and Drug Abuse Patient Records regulations: The Federal rules restrict any use of the information to criminally investigate or prosecute any alcohol or drug abuse patient.[facility] HospitalIn the event this information is protected by the Federal Confidentiality of Alcohol and Drug Abuse Patient Records regulations: The Federal rules restrict any use of the information to criminally investigate or prosecute any alcohol or drug abuse patient.[facility] Hospital[facility] the event this information is protected by the Federal Confidentiality of Alcohol and Drug Abuse Patient Records regulations: The Federal rules restrict any use of the information to criminally investigate or prosecute any alcohol or drug abuse patient.[facility] HospitalIn the event this information is protected by the Federal Confidentiality of Alcohol and Drug Abuse Patient Records regulations: The Federal rules restrict any use of the information to criminally investigate or prosecute any alcohol or drug abuse patient.[facility] HospitalIn the event this information is protected by the Federal Confidentiality of Alcohol and Drug Abuse Patient Records regulations: The Federal rules restrict any use of the information to criminally investigate or prosecute any alcohol or drug abuse patient.[facility] HospitalIn the event this information is protected by the Federal Confidentiality of Alcohol and Drug Abuse Patient Records regulations: The Federal rules restrict any use of the information to criminally investigate or prosecute any alcohol or drug abuse patient.[facility] HospitalIn the event this information is protected by the Federal Confidentiality of Alcohol and Drug Abuse Patient Records regulations: The Federal rules restrict any use of the information to criminally investigate or prosecute any alcohol or drug abuse patient.[facility] HospitalIn the event this information is protected by the Federal Confidentiality of Alcohol and Drug Abuse Patient Records regulations: The Federal rules restrict any use of the information to criminally investigate or prosecute any alcohol or drug abuse patient.[facility] HospitalIn the event this information is protected by the Federal Confidentiality of Alcohol and Drug Abuse Patient Records regulations: The Federal rules restrict any use of the information to criminally investigate or prosecute any alcohol or drug abuse patient.[facility] HospitalIn the event this information is protected by the Federal Confidentiality of Alcohol and Drug Abuse Patient Records regulations: The Federal rules restrict any use of the information to criminally investigate or prosecute any alcohol or drug abuse patient.[facility] HospitalIn the event this information is protected by the Federal Confidentiality of Alcohol and Drug Abuse Patient Records regulations: The Federal rules restrict any use of the information to criminally investigate or prosecute any alcohol or drug abuse patient.[facility] HospitalIn the event this information is protected by the Federal Confidentiality of Alcohol and Drug Abuse Patient Records regulations: The Federal rules restrict any use of the information to criminally investigate or prosecute any alcohol or drug abuse patient.[facility] HospitalIn the event this information is protected by the Federal Confidentiality of Alcohol and Drug Abuse Patient Records regulations: The Federal rules restrict any use of the information to criminally investigate or prosecute any alcohol or drug abuse patient.[facility] HospitalIn the event this information is protected by the Federal Confidentiality of Alcohol and Drug Abuse Patient Records regulations: The Federal rules restrict any use of the information to criminally investigate or prosecute any alcohol or drug abuse patient.[facility] HospitalIn the event this information is protected by the Federal Confidentiality of Alcohol and Drug Abuse Patient Records regulations: The Federal rules restrict any use of the information to criminally investigate or prosecute any alcohol or drug abuse patient.[facility] HospitalIn the event this information is protected by the Federal Confidentiality of Alcohol and Drug Abuse Patient Records regulations: The Federal rules restrict any use of the information to criminally investigate or prosecute any alcohol or drug abuse patient.[facility] HospitalIn the event this information is protected by the Federal Confidentiality of Alcohol and Drug Abuse Patient Records regulations: The Federal rules restrict any use of the information to criminally investigate or prosecute any alcohol or drug abuse patient.[facility] HospitalIn the event this information is protected by the Federal Confidentiality of Alcohol and Drug Abuse Patient Records regulations: The Federal rules restrict any use of the information to criminally investigate or prosecute any alcohol or drug abuse patient.[facility] HospitalIn the event this information is protected by the Federal Confidentiality of Alcohol and Drug Abuse Patient Records regulations: The Federal rules restrict any use of the information to criminally investigate or prosecute any alcohol or drug abuse patient.[facility] HospitalIn the event this information is protected by the Federal Confidentiality of Alcohol and Drug Abuse Patient Records regulations: The Federal rules restrict any use of the information to criminally investigate or prosecute any alcohol or drug abuse patient.[facility] HospitalIn the event this information is protected by the Federal Confidentiality of Alcohol and Drug Abuse Patient Records regulations: The Federal rules restrict any use of the information to criminally investigate or prosecute any alcohol or drug abuse patient.[facility] HospitalIn the event this information is protected by the Federal Confidentiality of Alcohol and Drug Abuse Patient Records regulations: The Federal rules restrict any use of the information to criminally investigate or prosecute any alcohol or drug abuse patient.[facility] HospitalIn the event this information is protected by the Federal Confidentiality of Alcohol and Drug Abuse Patient Records regulations: The Federal rules restrict any use of the information to criminally investigate or prosecute any alcohol or drug abuse patient.[facility] HospitalIn the event this information is protected by the Federal Confidentiality of Alcohol and Drug Abuse Patient Records regulations: The Federal rules restrict any use of the information to criminally investigate or prosecute any alcohol or drug abuse patient.[facility] HospitalIn the event this information is protected by the Federal Confidentiality of Alcohol and Drug Abuse Patient Records regulations: The Federal rules restrict any use of the information to criminally investigate or prosecute any alcohol or drug abuse patient.[facility] HospitalIn the event this information is protected by the Federal Confidentiality of Alcohol and Drug Abuse Patient Records regulations: The Federal rules restrict any use of the information to criminally investigate or prosecute any alcohol or drug abuse patient.[facility] HospitalIn the event this information is protected by the Federal Confidentiality of Alcohol and Drug Abuse Patient Records regulations: The Federal rules restrict any use of the information to criminally investigate or prosecute any alcohol or drug abuse patient.[facility] Reason for Visit (unrecogniz ed section and content) Reason Comments Patient Update Reason Comments Radiology NM Specialty Diagnoses / Procedures Referred By Contac t Referred To Contact MOLECULAR & FUNCTIONAL IMAGING Diagnoses Paroxysmal atrial fibrillation (HCC) Procedures NM CARDIAC PERF STRESS/EXERCISE MYOCARDIAL SPECT MULTIPLE STUDIES Ara Le MD [address] [place] [address] Molecular & Functional Imaging [address] [place] [address] Referral ID Status Reason Start Date Expiration Date V isits Requested Visits Authorized [id number] Closed Auto-Generate d Referral 07/30/2021 09/28/2021 1 1 Reason Comments Results Zio patch results Reason Comments Received Outside Medical Records Reason Comments Schedule Surgery PVI ablation Reason Comments Medication Review Time Sensitive Reason Comments Patient Education EP: PVI Reason Comments Radiology CT Specialty Diagnoses / Procedures Referred By Contac t Referred To Contact CT IMAGING Diagnoses Persistent atrial fibrillation (HCC) Procedures CT PULMONARY VEIN W IVCON CT HEART CONTRAST EVAL CARDIAC STRUCTURE&MORPH Ana Tillman MD [address] [place] [address] Ct Imaging Referral ID Status Reason Start Date Expiration Date V isits Requested Visits Authorized [id number] Closed Auto-Generate d Referral 12/11/2021 01/10/2022 1 1 Reason Comments Transmitter 90 days Reason Comments Patient Question Reason Comments Medication Problem Reason Comments Event ZIO PATCH Specialty Diagnoses / Procedures Referred By Contact Referred To Contact Cardiology / CARDIOVASCULAR MEDICINE Diagnoses Paroxysmal atrial fibrillation 6 MONTH FOLLOW UP EKG, ECHO PER HVI F/U ORDER Procedures EST EPS Ara Le MD [address] [place] [address] [place] [address] [place] [address] Referral ID Status Reason Start Date Expiration Date Visits Re quested Visits Authorized [id number] Closed 01/28/2022 05/02/2022 1 1 Reason Comments Palpitations Arrhythmia Reason Onset Date Comments Refill Request 07/06/2024 Care Teams (unrecognized sec tion and content) [employer] Teacher Relationship Specialty Start Date End Date Tere Muro [address] [place] [address] PCP - General 03/27/09 [employer] Science Teacher Relationship Specialty Start Date End Date Tere Muro [address] [place], [place] [address] PCP - General 03/27/09 [employer] Science Teacher Relationship Specialty Start Date End Date Tere Muro [address] [place] [address] PCP - General 03/27/09 [employer] Science Teacher Relationship Specialty Start Date End Date Tere Muro [address] [place] [address] PCP - General 03/27/09 [employer] Science Teacher Relationship Specialty Start Date End Date Tere Muro [address] [place] [address] PCP - General 03/27/09 [employer] Science Teacher Relationship Specialty Start Date End Date Tere Muro [address] [place] [address] PCP - General 03/27/09 [employer] Science Teacher Relationship Specialty Start Date End Date Bhaskar Tere Richardson [address] [place] [address] PCP - General 03/27/09 [employer] Science Teacher Relationship Specialty Start Date End Date Maliakristen Tere Richardson [address] [place] [address] PCP - General 03/27/09 Elementary [employer] Science Teacher Relationship Specialty Start Date End Date Tere Muro [address] [facility] [address] [place] [address] PCP - General 03/27/09 Elementary [employer] Science Teacher Relationship Specialty Start Date End Date Tere Muro [address] [facility] [address] [place] [address] PCP - General 03/27/09 Ana Tillman MD [address] [place] [address] Primary Staff Physician Cardiology 12/25/21 Elementary [employer] Science Teacher Relationship Specialty Start Date End Date Tere Muro Lupe [address] [facility] [address] [place] [address] PCP - General 03/27/09 Ana Tillman MD [address] [place] [address] Primary Staff Physician Cardiology 12/25/21 Elementary [employer] Science Teacher Relationship Specialty Start Date End Date Tere Muroer [address] [facility] [address] [place] [address] PCP - General 03/27/09 Ana Tillman MD [address] [place] [address] Primary Staff Physician Cardiology 12/25/21 Elementary [employer] Science Teacher Relationship Specialty Start Date End Date Tere Muro Lupe [address] [facility] [address] [place] [address] PCP - General 03/27/09 Ana Tillman MD [address] [place] [address] Primary Staff Physician Cardiology 12/25/21 Elementary [employer] Science Teacher Relationship Specialty Start Date End Date Tere Muro [address] [place] [address] PCP - General 03/27/09 Ana Tillman MD [address] [place] [address] Primary Staff Physician Cardiology 12/25/21 Elementary [employer] Science Teacher Relationship Specialty Start Date End Date Tere Muro [address] [place] [address] PCP - General 03/27/09 Ana Tillman MD [address] [place] [address] Primary Staff Physician Cardiology 12/25/21 Elementary [employer] Science Teacher Relationship Specialty Start Date End Date Tere Muro [address] [place] [address] PCP - General 03/27/09 Ana Tillman MD [address] [place] [address] Primary Staff Physician Cardiology 12/25/21 Elementary [employer] Science Teacher Relationship Specialty Start Date End Date Tere Muro [address] [place] [address] PCP - General 03/27/09 Ana Tillman MD [address] [place] [address] Primary Staff Physician Cardiology 12/25/21 Elementary [employer] Science Teacher Relationship Specialty Start Date End Date Tere Muro [address] [place] [address] PCP - General 03/27/09 Ana Tillman MD [address] [place] [address] Primary Staff Physician Cardiology 12/25/21 Elementary [employer] Science Teacher Relationship Specialty Start Date End Date Tere Muro [address] [place] [address] PCP - General 03/27/09 Ana Tillman MD [address] [place] [address] Primary Staff Physician Cardiology 12/25/21 Elementary [employer] Science Teacher Relationship Specialty Start Date End Date Tere Muro [address] [place] [address] PCP - General 03/27/09 Ana Tillman MD [address] [place] [address] Primary Staff Physician Cardiology 12/25/21 Elementary [employer] Science Teacher Relationship Specialty Start Date End Date Tere Muro [address] [place] [address] PCP - General 03/27/09 Ana iTllman MD [address] [place] [address] Primary Staff Physician Cardiology 12/25/21 Elementary [employer] Science Teacher Relationship Specialty Start Date End Date Tere Muro [address] [place] [address] PCP - General 03/27/09 Ana Tillman MD [address] [place] [address] Primary Staff Physician Cardiology 12/25/21 Elementary [employer] Science Teacher Relationship Specialty Start Date End Date Tere Muro [address] [facility] [address] [place] [address] PCP - General 03/27/09 Ana Tillman MD [address] [place] [address] Primary Staff Physician Cardiology 12/25/21 Elementary [employer] Science Teacher Relationship Specialty Start Date End Date Tere Muro [address] [facility] [address] [place] [address] PCP - General 03/27/09 Ana Tillman MD [address] [place], [place] [id number] Primary Staff Physician Cardiology 12/25/21 Elementary [employer] Science Teacher Relationship Specialty Start Date End Date Tere Muro [address] [facility] [address] [place] [address] PCP - General 03/27/09 Ana Tillman MD [address] [place] [address] Primary Staff Physician Cardiology 12/25/21 Elementary [employer] Science Teacher Relationship Specialty Start Date End Date Tere Muro [address] [facility] [address] [place] [address] PCP - General 03/27/09 Ana Tillman MD [address] [place] [address] Primary Staff Physician Cardiology 12/25/21 Goals (unrecognized section and content) Goals may be documented in a n alternate sectionGoals may be documented in an alternate sectionGoals may be documented in an alternate sectionGoals may be documented in an alternate section FOR RECORDS PERTAINING TO PATIENTS WHO ARE OR HAVE BEEN ENROLLED IN A CHEMICAL DEPENDENCY/SUBSTANCEABUSE PROGRAM, SOME INFORMATION MAY BE OMITTED. This clinical summary was aggregated from multiple sources. Caution should be exercised in using it in the provision of clinical care. This summary normalizes information from multiple sources, and as a consequence, information in this document may materially change the coding, format and clinical context of patient data. In addition, data may be omitted in some cases. CLINICAL DECISIONS SHOULD BE BASED ON THE PRIMARY CLINICAL RECORDS. [facility]. provides no warranty or guarantee of the accuracy or completeness of information in this document.
== END | disposition home or self-care (01) ==
LOC: MFPLAB 14:12
PROVIDERS: PCP Family Medicine; Referring Provider Family Medicine; Visit Provider Family Medicine
DX: E03.9 Hypothyroidism, unspecified (principal)
CPT/HCPCS: 36415; 84443